=== PATIENT | male | born 1960 | race Caucasian/White ===

== ENCOUNTER 2019-12-27 09:42 | Emergency (ER) | payer SELFPAY ==
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
--- NOTE | 2019-12-27 11:01 | PC.NURSE ---
REPORT RECIEVED FROM [facility].
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
[2019-12-27 12:21] VITALS: O2SAT 98; BMI 30.2
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
[2019-12-27 12:40] VITALS: BP 152/97; PULSE 85; RESP 18; O2SAT 97
--- NOTE | 2019-12-27 12:44 | PC.NURSE ---
1101 REPORT RECEIVED FROM [facility].
[2019-12-27 12:46] VITALS: BP 154/108; PULSE 86; RESP 16; O2SAT 98
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
== END 2019-12-27 12:42 ==
PROVIDERS: Emergency Provider Emergency Medicine
DX: S63.92XA Sprain of unspecified part of left wrist and hand, initial encounter (principal); S66.912A Strain of unspecified muscle, fascia and tendon at wrist and hand level, left hand, initial encounter; V59.40XA Driver of pick-up truck or van injured in collision with unspecified motor vehicles in traffic accident, initial encounter
CPT/HCPCS: 12345; 73130; 99281; 99282

== ENCOUNTER 2019-12-29 15:34 | Emergency (ER) | payer SELFPAY ==
[2019-12-29 15:42] VITALS: BP 152/91; PULSE 95; RESP 18; TEMP 37; O2SAT 97; BMI 31.0
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
== END 2019-12-29 22:19 | disposition home or self-care (01) ==
PROVIDERS: Emergency Provider Nurse Practitioner Family
DX: M25.512 Pain in left shoulder (principal); M25.571 Pain in right ankle and joints of right foot; M25.562 Pain in left knee; M25.561 Pain in right knee; V59.40XA Driver of pick-up truck or van injured in collision with unspecified motor vehicles in traffic accident, initial encounter
CPT/HCPCS: 12345; 73030; 73562; 73610; 99281; 99283

== ENCOUNTER 2020-09-19 10:37 | Emergency (ER) | payer SELFPAY ==
[2020-09-19 10:45] VITALS: BP 150/78; PULSE 92; RESP 16; TEMP 36.5; O2SAT 97; BMI 30.2
--- NOTE | 2020-09-19 10:53 | XR_ITS ---
WS: [id number] 3 views of the left fifth finger, 09/19/2020 Clinical Data: Injury Comparison: Left hand, 12/27/2019 Findings: There is an undisplaced fracture of the distal phalanx involving the ungual tuft of the left fifth fi nger. No other fractures are seen. 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 Soft tissue swelling of the distal phalanx is seen. XR/XR finger LT min 2V [id number] Impression: Undisplaced fracture of the distal phalanx of the left fifth finger.
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
[2020-09-19] MEDS: HYDROcodone-acetaminophen 5-325 mg Tablet 1 TAB PO (11:30)
[2020-09-19] MEDS: clindamycin 600 MG/50 ML PREMIX 100 MG IV (11:32)
[2020-09-19 11:35] LABS: Basophils # 0.1 10^3/uL (0.0-0.1); Basophils % 0.8 %; Eosinophils # 0.2 10^3/uL (0.0-0.8); Hematocrit 45.3 % (42.0-52.0); Hemoglobin 15.1 g/dL (11.7-16.6); Lymphocytes # 1.8 10^3/uL (0.8-4.8); Lymphocytes % 22.6 %; Mean Corpuscular HGB Conc 33.3 g/dL (30.0-36.0); Mean Corpuscular Volume 89.9 fL (80-94); Mean Platelet Volume 9.7 fL (7.4-10.4); Monocytes # 0.5 10^3/uL (0.2-0.9); Monocytes % 6.9 %; Neutrophils # 5.22 10^3/uL (1.8-7.7); Neutrophils % 66.3 %; Nucleated Red Blood Cells % 0 %; Platelet Count 246 10^3/cmm (130-400); Red Blood Count 5.04 10^6/uL (4.1-5.3); Red Cell Distribution Width 13.9 % (12.1-15.1); White Blood Count 7.9 10^3/uL (4.0-10.0)
[2020-09-19 11:58] LABS: Alanine Aminotransferase 33 U/L (0-41); Albumin Level 4.1 g/dL (3.5-5.2); Alkaline Phosphatase 102 IU/L (40-130); Anion Gap 14.2 (5-19); Aspartate Amino Transferase 21 U/L (0-40); Blood Urea Nitrogen 25 mg/dL (8-23); Calcium 8.8 mg/dL (8.5-10.5); Carbon Dioxide 25 mmol/L (22-29); Chloride 102 mmol/L (98-107); Globulin 3.2 g/dL (1.3-4.6); Glomerular Filtration Rate 61.8 mL/min (90-130); Glucose 116 mg/dL (65-115); Osmolality Calculated 289 mOsm/kg (285-295); Potassium 4.2 mmol/L (3.5-5.1); Sodium 137 mmol/L (136-145); Total Bilirubin 0.3 mg/dL (0.15-1.2); Total Protein 7.3 g/dL (6.6-8.7)
== END 2020-09-19 12:20 | disposition home or self-care (01) ==
PROVIDERS: Emergency Provider Emergency Medicine
DX: S62.667A Nondisplaced fracture of distal phalanx of left little finger, initial encounter for closed fracture (principal); S61.257A Open bite of left little finger without damage to nail, initial encounter; Y04.1XXA Assault by human bite, initial encounter
CPT/HCPCS: 73140; 80053; 85025; 96365; 99283; J3490

== ENCOUNTER 2021-02-05 15:08 | Emergency (ER) | payer SELFPAY ==
[2021-02-05 15:46] VITALS: BP 133/83; PULSE 98; RESP 22; TEMP 37.4; O2SAT 92
--- NOTE | 2021-02-05 18:15 | XRR_ITS ---
PROCEDURE INFORMATION: Exam: XR Chest Exam date and time: 02/05/2021 6:15 PM Age: 61 years old Clinical indication: Cough and shortness of breath; Additional info: SOB TECHNIQUE: Imaging protocol: XR of the chest. Views: 1 view. COMPARISON: No relevant prior studies available. FINDINGS: Lungs: Mild elevation of the left hemidiaphragm. Interstitial and alveolar opacities in the periphery of both lungs, worse on the left. Pleural spaces: No pleural effusion. No pneumothorax. Heart/Mediastinum: The cardiac silhouette is mildly enlarged. Mediastinal contours are unremarkable. Vasculature: Vascular calcifications in the aorta. Bones/joints: Unremarkable for age. XR/XR chest 1V portable [id number] IMPRESSION: 1. Interstitial and alveolar opacities in the periphery of both lungs, worse on the left. Findings are suspicious for pneumonia, including atypical and viral organisms. Recommend followup chest x-ray to ensure resolution. 2. Incidental/nonacute findings are listed in the report.
[2021-02-05 20:18] VITALS: O2SAT 93
[2021-02-05 20:35] LABS: Basophils % 0.2 %; Eosinophils # 0.1 10^3/uL (0.0-0.8); Eosinophils % 0.8 %; Hematocrit 43.1 % (42.0-52.0); Hemoglobin 14.6 g/dL (11.7-16.6); Lymphocytes # 1.1 10^3/uL (0.8-4.8); Lymphocytes % 8.9 %; Mean Corpuscular HGB Conc 33.9 g/dL (30.0-36.0); Mean Corpuscular Hemoglobin 29.5 pg (28.0-34.0); Mean Corpuscular Volume 87.1 fl (80-94); Mean Platelet Volume 9.5 fL (7.4-10.4); Neutrophils # 9.66 10^3/uL (1.8-7.7); Neutrophils % 81.2 %; Nucleated Red Blood Cells % 0 %; Platelet Count 382 10^3/cmm (130-400); Red Blood Count 4.95 10^6/uL (4.1-5.3); Red Cell Distribution Width 13.8 % (12.1-15.1); White Blood Count 11.9 10^3/uL (4.0-10.0)
[2021-02-05 20:54] VITALS: BP 135/95; PULSE 108; RESP 18; O2SAT 97
--- NOTE | 2021-02-05 20:54 | ED_ITS ---
HPI - COVID General: Chief Complaint: COVID symptoms Stated Complaint: DISORIENTED, SORES ON CHEST, COUGH, SOB Time Seen by Provider: 02/05/21 16:11 Source: patient Mode of arrival: ambulatory Limitations: no limitations Triage information: Has fever, cough or shortness of breath . No known COVID + exposure last 14 days History of Present Illness: HPI Narrative: 61-year-old male who states he believes he has Covid. He states his along with his roommate has been diagnosed with Covid over the last 2 weeks and he states has been having sym ptoms. States been having cough congestion body aches fevers. He states that today he started to feel rundown. He states he is having dyspnea with exertion. Patient's oxygen level here is 93% on room air. He is in no severe distress. Denies any pain currently. COVID 19 common symptoms: positive fever(s), chills, non-productive cough and body aches; negative headache(s), throat pain, nausea, vomiting or diarrhea COVID 19 other sytmptoms: negative chest pain COVID Results: SARS-CoV-2 Antigen (Rapid) Negative (Negative) 02/05/21 21:20 02/05/21 Review of Systems Const: Reports: fever(s), chills and body aches Eyes: Denies: blurry vision or eye discomfort ENMT: Denies: throat pain or dental pain Card: Denies: chest pain Resp: Reports: non-productive cough GI: Denies: abdominal pain, nausea, vomiting or diarrhea : Denies: dysuria Musc: Denies: neck pain or back pain Skin/Breast: Denies: rash Neuro: Denies: headache(s) Psych: Denies: depression Rey/Lymph: Denies: easy bruising All/Imm: Denies: urticaria PFSH ED PFSH: Social History Smoking and tobacco status: never smoked Physical Exam Const: COMMON NORMALS: no acute distress, patient oriented x3 and healthy appearing HENMT: COMMON NORMALS: normocephalic and atraumatic HEAD & SCALP: normocephalic and atraumatic Eye: COMMON NORMALS: Equal, round and reactive pupils present and EOMs intact bilaterally PUPIL: Yes Equal, round and reactive pupils present Neck/C-Spine: COMMON NORMALS: full ROM and supple Chest: COMMONS NORMALS: normal inspection of the chest and normal palpation of entire chest wall Resp: COMMON NORMALS: normal respiratory effort, No retractions, No use of accessory muscles and clear to auscultation bilaterally AUSCULTATION: clear to auscultation bilaterally Cardio: COMMON NORMALS: regular rate, regular rhythm and No murmurs present (Cardio) RATE: regular rate RHYTHM: regular rhythm GI: COMMON NORMALS: Normal to inspection, nondistended, normoactive bowel sounds present, Soft to palpation, non-tender and no masses PALPATION: Yes Soft to palpation Extremity: COMMON NORMALS: normal to inspection and full ROM Neuro: COMMON NORMALS: patient oriented x3, moves all extremities and no focal motor deficits Psych: COMMON NORMALS: mental status grossly normal, Normal thought process present and cooperative THOUGHT PROCESS: Normal thought process present Skin: COMMON NORMALS: no rashes or lesions noted and no wounds GENERAL SKIN EXAM: no rashes or lesions noted Course Vital Signs: Vital signs: Vital Signs Temperature 99.3 F 02/05/21 15:46 Pulse Rate 87 02/05/21 23:07 Respiratory Rate 18 02/05/21 23:07 Blood Pressure 135/87 02/05/21 23:07 Pulse Oximetry 92 02/05/21 23:07 MDM - COVID MDM Narrative: Medical decision making narrative: Patient presents here with cough congestion fever likely Covid pneumonia. His rapid here was negative with the parents of his CT and multiple close contacts I believe he likely has Covid. Patient given Decadron will place him on antibiotics as well. He is return if he has any hypoxia. He has no distress here. He stable for discharge. He understands agrees to plan. Lab Data: Labs: Lab Results 02/05/21 02/05/21 02/05/21 Range/Units 20:16 20:16 21:00 WBC 11.9 H (4.0-10.0) 10^3/ uL RBC 4.95 (4.1-5.3) 10^6/u L Hgb 14.6 (11.7-16.6) g/dL Hct 43.1 (42.0-52.0) % MCV 87.1 (80-94) fl MCH 29.5 (28.0-34.0) pg MCHC 33.9 (30.0-36.0) g/dL RDW 13.8 (12.1-15.1) % Plt Count 382 (130-400) 10^3/c mm MPV 9.5 (7.4-10.4) fL Neut % (Auto) 81.2 % Lymph % (Auto) 8.9 % [place] % (Auto) 8.0 % Eos % (Auto) 0.8 % Baso % (Auto) 0.2 % Neut # (Auto) 9.66 H (1.8-7.7) 10^3/u L Lymph # (Auto) 1.1 (0.8-4.8) 10^3/u L [place] # (Auto) 1.0 H (0.2-0.9) 10^3/u L Eos # (Auto) 0.1 (0.0-0.8) 10^3/u L Baso # (Auto) 0.0 (0.0-0.1) 10^3/u L Nucleated RBC % (a uto) 0 % Nucleated RBCs # 0.0 /100WBC D-Dimer (0-0.59) ug/mIFE U Sodium 134 L (136-145) mmol/L Potassium 4.4 (3.5-5.1) mmol/L Chloride 97 L (98-107) mmol/L Carbon Dioxide 25 (22-29) mmol/L Anion Gap 16.4 (5-19) BUN 21 (8-23) mg/dL Creatinine 1.1 (0.7-1.2) mg/dL GFR Calculation 68.1 L (90-130) mL/min Glucose 106 (65-115) mg/dL Calculated Osmolal ity 281 L (285-295) mOsm/k g Lactic Acid 1.6 (0.5-2.2) mmol/L Calcium 9.1 (8.5-10.5) mg/dL Total Bilirubin 0.8 (0.15-1.2) mg/dL AST 29 (0-40) U/L ALT 59 H (0-41) U/L Alkaline Phosphata se 115 (40-130) IU/L C-Reactive Protein 211.8 H (0.0-4.9) mg/L NT-Pro-B Natriuret Pep 439 H (0-125) pg/mL Total Protein 7.9 (6.6-8.7) g/dL Albumin 3.1 L (3.5-5.2) g/dL Globulin 4.8 H (1.3-4.6) g/dL SARS-CoV-2 Ag (Rap id) (Negative) 02/05/21 02/05/21 Range/Units 21:20 21:28 WBC (4.0-10.0) 10^3/ uL RBC (4.1-5.3) 10^6/u L Hgb (11.7-16.6) g/dL Hct (42.0-52.0) % MCV (80-94) fl MCH (28.0-34.0) pg MCHC (30.0-36.0) g/dL RDW (12.1-15.1) % Plt Count (130-400) 10^3/c mm MPV (7.4-10.4) fL Neut % (Auto) % Lymph % (Auto) % [place] % (Auto) % Eos % (Auto) % Baso % (Auto) % Neut # (Auto) (1.8-7.7) 10^3/u L Lymph # (Auto) (0.8-4.8) 10^3/u L [place] # (Auto) (0.2-0.9) 10^3/u L Eos # (Auto) (0.0-0.8) 10^3/u L Baso # (Auto) (0.0-0.1) 10^3/u L Nucleated RBC % (a uto) % Nucleated RBCs # /100WBC D-Dimer 3.89 H (0-0.59) ug/mIFE U Sodium (136-145) mmol/L Potassium (3.5-5.1) mmol/L Chloride (98-107) mmol/L Carbon Dioxide (22-29) mmol/L Anion Gap (5-19) BUN (8-23) mg/dL Creatinine (0.7-1.2) mg/dL GFR Calculation (90-130) mL/min Glucose (65-115) mg/dL Calculated Osmolal ity (285-295) mOsm/k g Lactic Acid (0.5-2.2) mmol/L Calcium (8.5-10.5) mg/dL Total Bilirubin (0.15-1.2) mg/dL AST (0-40) U/L ALT (0-41) U/L Alkaline Phosphata se (40-130) IU/L C-Reactive Protein (0.0-4.9) mg/L NT-Pro-B Natriuret Pep (0-125) pg/mL Total Protein (6.6-8.7) g/dL Albumin (3.5-5.2) g/dL Globulin (1.3-4.6) g/dL SARS-CoV-2 Ag (Rap id) Negative (Negative) Imaging Data: CT Chest: Attestation: I personally reviewed and interpreted this imaging study as follows: Radiologist's impression: [place] [address] [address] [address] Scan Report Signed Patient: Shaun James Unit #: [id number] : 1960 Age/Sex: 61 / M ADM Date: 02/05/21 Loc: ER Room/Bed: Attending Dr: Ordering Provider/Ordering MD: Armand Hawkins MD Date of Service: 02/05/21 Procedure(s): CT angio chest PE protcl [id number] Accession Number(s): [id number] Report Number: [id number] PROCEDURE INFORMATION: Exam: CTA Chest With Contrast Exam date and time: 02/05/2021 10:23 PM Age: 61 years old Clinical indication: Cough and shortness of breath; Patient HX: Cough/sob/elevated ddimer. Exposure to multiple individuals with covid. TECHNIQUE: Imaging protocol: Computed tomographic angiography of the chest with contrast. 3D rendering (Not supervised by radiologist): MIP and/or 3D reconstructed images were created by the technologist. Radiation optimization: All CT scans at this facility use at least one of these dose optimization techniques: automated exposure control; mA and/or kV adjustment per patient size (includes targeted exams where dose is matched to clinical indication); or iterative reconstruction. Contrast material: OMNI 350; Contrast volume: 76 ml; Contrast route: INTRAVENOUS (IV); COMPARISON: CR (CHEST, ) 02/05/2021 7:11 PM RADIATION DOSE METRICS: Total DLP (mGy-cm): 602.92 FINDINGS: Pulmonary arteries: No filling defects in the pulmonary arteries to suggest pulmonary embolism. Aorta: No evidence for aortic aneurysm or aortic dissection. Lungs: Tracheobronchial structures are patent. Multiple areas of ground-glass opacification and crazy paving in both lungs in a predominantly peripheral pattern. Findings are commonly seen with COVID-19 pneumonia. No pulmonary parenchymal nodules or masses. Pleural spaces: No pneumothorax. No pleural effusion. Heart: No cardiomegaly. No pericardial effusion. Mediastinal space: The esophagus is unremarkable. No mediastinal hematoma. No pneumomediastinum. Lymph nodes: No lymphadenopathy. Liver: The visualized liver is unremarkable. Gallbladder and bile ducts: The gallbladder is unremarkable. No dilatation of the visualized bile ducts. Pancreas: The visualized pancreas is unremarkable. No pancreatic ductal dilatation. Spleen: The spleen is unremarkable. Multiple splenules in the left upper quadrant. Adrenal glands: The right and left adrenal glands are unremarkable. Kidneys and ureters: The visualized right and left kidneys are unremarkable. Bones/joints: Mild degenerative changes in the visualized spine. Bone islands in the left humeral head and scapula. Mild degenerative changes at the shoulders bilaterally. Soft tissues: No acute abnormality in the extrathoracic soft tissues. CT/CT angio chest PE protcl [id number] IMPRESSION: 1. Multiple areas of ground-glass opacification and crazy paving in both lungs in a predominantly peripheral pattern. Findings are commonly seen with COVID-19 pneumonia. Per report, the patient has prior exposure to COVID-19. Recommend followup chest imaging to insure resolution of these findings. 2. No evidence for pulmonary embolism. 3. Incidental/nonacute findings are listed in the report. Radiation Dose CTDIVOL = (mGy): DLP = 602.92 (mGy-cm) Dictated By: Crystal Blanco MD Signed By: Crystal Blanco MD Signed Date/Time: 02/05/212301 DD/ 99 COVID Results: SARS-CoV-2 Antigen (Rapid) Negative (Negative) 02/05/21 21:20 02/05/21 Discharge Plan Discharge Patient Disposition: Home Clinical Impression: Suspected severe acute respiratory syndrome coronavirus 2 (SARS-CoV-2) infection Condition: Stable Prescriptions: New albuterol sulfate 90 mcg/actuation HFA aerosol inhaler 2 inh INHALATION Q6H PRN (Reason: shortness of breath or wheezing) Qty: 8 RF: 0 doxycycline hyclate 100 mg tablet 100 mg PO BID 7 Days Qty: 14 RF: 0 No Action sulfamethoxazole-trimethoprim 800-160 mg tablet 1 tab PO Q12H 10 Days Qty: 20 RF: 0 mupirocin 2 % ointment 1 applic TOPICAL BID 7 Days Qty: 22 RF: 0 hydrocodone-acetaminophen 5-325 mg tablet 1 tab PO Q6H PRN (Reason: pain) Qty: 10 RF: 0 cyclobenzaprine 10 mg tablet 10 mg PO TID PRN (Reason: muscle spasm) Qty: 10 RF: 0 ibuprofen 200 mg Tablet 400 - 600 mg PO QAM PRN (Reason: Pain) RF: 0 propranolol 20 mg Tablet 20 mg PO DAILY RF: 0 calcium carb-mag ox-zinc sulf 333-133-5 mg Tablet 1 tab PO DAILY RF: 0 Augmentin 875-125 mg tablet 1 tab PO Q12H Qty: 20 RF: 0 diclofenac sodium 75 mg tablet,delayed release (DR/EC) 75 mg PO BID PRN (Reason: pain) Qty: 20 RF: 0 Discharge Orders: Discharge ED (Routine); Ordered 02/05/21 Ordered By: Armand Hawkins Discharge Diet: Advance as tolerated Discharge Activity: Resume usual activity Patient Instructions: Viral Syndrome (ED) Coding Level of Care Code ED Livestock Producer for Jeanne Fwcharsi Exam Comprehensive
[2021-02-05 21:04] LABS: Alanine Aminotransferase 59 U/L (0-41); Albumin Level 3.1 g/dL (3.5-5.2); Alkaline Phosphatase 115 IU/L (40-130); Anion Gap 16.4 (5-19); Aspartate Amino Transferase 29 U/L (0-40); Blood Urea Nitrogen 21 mg/dL (8-23); C Reactive Protein 211.8 mg/L (0.0-4.9); Calcium 9.1 mg/dL (8.5-10.5); Carbon Dioxide 25 mmol/L (22-29); Chloride 97 mmol/L (98-107); Creatinine Clr Calc Pharmacy 78.1466; Globulin 4.8 g/dL (1.3-4.6); Glomerular Filtration Rate 68.1 mL/min (90-130); Glucose 106 mg/dL (65-115); NT Pro B Type Natriuretic Pept 439 pg/mL (0-125); Osmolality Calculated 281 mOsm/kg (285-295); Potassium 4.4 mmol/L (3.5-5.1); Sodium 134 mmol/L (136-145); Total Bilirubin 0.8 mg/dL (0.15-1.2); Total Protein 7.9 g/dL (6.6-8.7)
[2021-02-05] MEDS: acetaminophen 325 mg Tablet 650 MG PO (21:11)
[2021-02-05] MEDS: dexamethasone 10 mg/mL INJ IVP (21:11)
[2021-02-05 21:32] LABS: Lactic Sepsis W/Reflex 1.6 mmol/L (0.5-2.2)
[2021-02-05 21:45] LABS: SARS Covid-2 Antigen Negative (Negative)
[2021-02-05 22:06] LABS: D Dimer 3.89 ug/mIFEU (0-0.59)
--- NOTE | 2021-02-05 22:23 | CTR_ITS ---
PROCEDURE INFORMATION: Exam: CTA Chest With Contrast Exam date and time: 02/05/2021 10:23 PM Age: 61 years old Clinical indication: Cough and shortness of breath; Patient HX: Cough/sob/elevated ddimer. Exposure to multiple individuals with covid. TECHNIQUE: Imaging protocol: Computed tomographic angiography of the chest with contrast. 3D rendering (Not supervised by radiologist): MIP and/or 3D reconstructed images were created by the technologist. Radiation optimization: All CT scans at this facility use at least one of these dose optimization techniques: automated exposure control; mA and/or kV adjustment per patient size (includes targeted exams where dose is matched to clinical indication); or iterative reconstruction. Contrast material: OMNI 350; Contrast volume: 76 ml; Contrast route: INTRAVENOUS (IV); COMPARISON: CR (CHEST, ) 02/05/2021 7:11 PM RADIATION DOSE METRICS: Total DLP (mGy-cm): 602.92 FINDINGS: Pulmonary arteries: No filling defects in the pulmonary arteries to suggest pulmonary embolism. Aorta: No evidence for aortic aneurysm or aortic dissection. Lungs: Tracheobronchial structures are patent. Multiple areas of ground-glass opacification and crazy paving in both lungs in a predominantly peripheral pattern. Findings are commonly seen with COVID-19 pneumonia. No pulmonary parenchymal nodules or masses. Pleural spaces: No pneumothorax. No pleural effusion. Heart: No cardiomegaly. No pericardial effusion. Mediastinal space: The esophagus is unremarkable. No mediastinal hematoma. No pneumomediastinum. Lymph nodes: No lymphadenopathy. Liver: The visualized liver is unremarkable. Gallbladder and bile ducts: The gallbladder is unremarkable. No dilatation of the visualized bile ducts. Pancreas: The visualized pancreas is unremarkable. No pancreatic ductal dilatation. Spleen: The spleen is unremarkable. Multiple splenules in the left upper quadrant. Adrenal glands: The right and left adrenal glands are unremarkable. Kidneys and ureters: The visualized right and left kidneys are unremarkable. Bones/joints: Mild degenerative changes in the visualized spine. Bone islands in the left humeral head and scapula. Mild degenerative changes at the shoulders bilaterally. Soft tissues: No acute abnormality in the extrathoracic soft tissues. CT/CT angio chest PE protcl [id number] IMPRESSION: 1. Multiple areas of ground-glass opacification and crazy paving in both lungs in a predominantly peripheral pattern. Findings are commonly seen with COVID-19 pneumonia. Per report, the patient has prior exposure to COVID-19. Recommend followup chest imaging to insure resolution of these findings. 2. No evidence for pulmonary embolism. 3. Incidental/nonacute findings are listed in the report. Radiation Dose CTDIVOL = (mGy): DLP = 602.92 (mGy-cm)
[2021-02-05] MEDS: iohexol 350 mg/mL 100 mL Btl IV (22:39)
[2021-02-05 23:07] VITALS: BP 135/87; PULSE 87; RESP 18; O2SAT 92
[2021-02-05 23:37] VITALS: BP 135/84; PULSE 78; RESP 18; O2SAT 94
== END 2021-02-05 23:39 | disposition home or self-care (01) ==
PROVIDERS: Emergency Provider Emergency Medicine
DX: Z20.822 Contact with and (suspected) exposure to COVID-19 (principal)
CPT/HCPCS: 36415; 71045; 71275; 80053; 83605; 83880; 85025; 85378; 86140; 87040; 87426; 96374; 99284; J1100; Q9967

== ENCOUNTER 2022-11-28 19:47 | Emergency (ER) | payer MEDICAID, SELFPAY ==
[2022-11-28] VITALS (7 sets, daily range): BP systolic 136–163; BP diastolic 77–98; PULSE 93–107; RESP 14–18; TEMP 36.7; O2SAT 95–99
--- NOTE | 2022-11-28 21:49 | W.ED.EXTPRO ---
HPI - Extremity Problem General: Chief complaint: Extremity Injury, Lower Stated complaint: swelling in right leg / high blood pressure Time Seen by Provider: 11/28/22 21:23 History of Present Illness: 62-year-old male presents emergency room with right leg pain and swelling within the past few hours. Patient further reveals that he bumped his prater against a board. He now presents emergency room with severe right leg pain and swelling. He describes the pain as tightness with severity of 10 out of 10. Denies any numbness or tingling. No loss of sensation. No recent fever or chills. Denies any shortness of breath cough, coughing up blood or vomiting blood. Associated symptoms: Deny chest pain or rash Review of Systems General: Reports: 10 or more systems reviewed and unremarkable except in HPI and below Eyes: Denies: change in vision, blurry vision, eye discomfort or eye discharge Card: Reports: swelling of feet/ankles; Denies: chest pain, palpitations, irregular heart rhythm, edema, lightheadedness, syncope, orthopnea, leg pain with exertion or acrocyanosis Resp: Denies: dyspnea, wheezing, stridor or change in phlegm color Musc: Reports: extremity pain, extremity swelling and joint swelling; Denies: deformity Skin/Breast: Reports: skin tenderness and skin swelling; Denies: rash, pruritus, erythema, photosensitivity or skin pain [facility] ED PFSH: Social History Smoking and tobacco status: never smoked Physical Exam Const: COMMON NORMALS: no acute distress, patient oriented x3, alert and well nourished (Patient in pain but no acute distress) Neck/C-Spine: COMMON NORMALS: no JVD Lymph: LYMPHATIC: no lymphadenopathy noted Chest: COMMONS NORMALS: normal inspection of the chest, normal palpation of entire chest wall, normal inspection of the breasts and normal palpation of the breasts Breast/axilla inspection: Yes normal inspection of the breasts BREAST/AXILLA PALPATION: Yes normal palpation of the breasts Resp: COMMON NORMALS: normal respiratory effort, No retractions, No use of accessory muscles and clear to auscultation bilaterally AUSCULTATION: clear to auscultation bilaterally Cardio: COMMON NORMALS: no JVD, regular rate, S1 normal heart sound present and S2 normal heart sound present RATE: regular rate HEART SOUNDS: S1 normal heart sound present and S2 normal heart sound present Extremity: RIGHT LOWER EXTREMITY: Yes lower leg Right lower leg: Yes inspection, Yes palpation (Diffuse tenderness upon palpation mostly anteriorly. No palpable cords) and Yes neurovascular exam (Intact) Neuro: COMMON NORMALS: patient oriented x3 SENSORIUM/ORIENTATION: Yes alert Skin: TRAUMA: no lacerations or abrasions, no abrasions, no lacerations and no punctures noted Course ED course: Patient monitored here for few hours. Patient had an x-ray and ultrasound. X-ray reviewed and discussed with patient. Ultrasound pending. We will transfer care to Dr. Neal for further evaluation and treatment. Vital Signs: Vital signs: Vital Signs Temperature 98.1 F 11/28/22 19:51 Pulse Rate 100 11/28/22 22:05 Respiratory Rate 18 11/28/22 22:17 Blood Pressure 152/89 11/28/22 22:05 Pulse Oximetry 98 11/28/22 22:17 Oxygen Delivery Me thod Room Air 11/28/22 22:05 MDM - Extremity (Nontraumatic) Medical Decision Making I reviewed the x-ray and discussed the ultrasound and x-ray results with the patient. Differential Diagnosis Likely superficial thrombophlebitis, deep venous thrombosis of upper extremity (Compartment syndrome, fracture, dislocation), lower extremity edema and deep vein thrombosis of lower extremity Discharge Plan Discharge Condition: Stable Prescriptions: No Action sulfamethoxazole-trimethoprim 800-160 mg tablet 1 tab PO Q12H 10 Days Qty: 20 0RF mupirocin 2 % ointment 1 applic TOPICAL BID 7 Days Qty: 22 0RF albuterol sulfate 90 mcg/actuation HFA aerosol inhaler 2 inh INHALATION Q6H PRN (Reason: shortness of breath or wheezing) Qty: 8 0RF hydrocodone-acetaminophen 5-325 mg tablet 1 tab PO Q6H PRN (Reason: pain) Qty: 10 0RF cyclobenzaprine 10 mg tablet 10 mg PO TID PRN (Reason: muscle spasm) Qty: 10 0RF ibuprofen 200 mg Tablet 400 - 600 mg PO QAM PRN (Reason: Pain) propranolol 20 mg Tablet 20 mg PO DAILY Rx Instructions: PT STATES SOMETIMES HE MISSES DOSES calcium carb-mag ox-zinc sulf 333-133-5 mg Tablet 1 tab PO DAILY Augmentin 875-125 mg tablet 1 tab PO Q12H Qty: 20 0RF diclofenac sodium 75 mg tablet,delayed release (DR/EC) 75 mg PO BID PRN (Reason: pain) Qty: 20 0RF Coding Level of Care Code ED Speech And Language Assistant for Jeanne Nagy
--- NOTE | 2022-11-28 22:08 | USR_ITS ---
PROCEDURE INFORMATION: Exam: US Duplex Right Lower Extremity Arteries Or Arterial Bypass Grafts Exam date and time: 11/28/2022 10:19 PM Age: 62 years old Clinical indication: Pain; Leg, lower; Right TECHNIQUE: Imaging protocol: Right Real-time duplex scan of the arteries or arterial bypass grafts of the right lower extremity with 2-D tejeda scale, color Doppler flow and spectral waveform analysis. Images documented and saved. COMPARISON: CR XR knee RT 3V* [id number] 12/29/2019 5:38 PM FINDINGS: Right common femoral artery: No occlusion or significant stenosis. Normal waveform. No pseudoaneurysm in the inguinal region. Right superficial femoral artery: No occlusion or significant stenosis. Normal waveform. Right popliteal artery: No occlusion or significant stenosis. Normal waveform. Right calf/foot arteries: No occlusion or significant stenosis in the visualized arteries. Normal waveforms. Dorsalis pedis artery is patent. Lymph nodes: Incidentally visualized 5 mm short axis lymph node right inguinal region with fatty hilum, benign. Soft tissues: No hematoma or [place]. US/[place] [id number] IMPRESSION: No stenosis or occlusion.
--- NOTE | 2022-11-28 22:08 | XRR_ITS ---
PROCEDURE INFORMATION: Exam: XR Right Tibia and Fibula Exam date and time: 11/28/2022 10:45 PM Age: 62 years old Clinical indication: Injury or trauma; Fall; Blunt trauma; Lower leg; Right; Patient HX: HX R ankle arthritis; Additional info: Pain post injury TECHNIQUE: Imaging protocol: Radiologic exam of the right tibia and fibula. Views: 2 views. COMPARISON: CR XR ankle RT min 3V* [id number] 12/29/2019 5:38 PM FINDINGS: Bones/joints: No acute displaced fracture. Marked arthritis of the tibiotalar joint with osseous fragments adjacent to the medial malleolus suggesting old trauma are unchanged. Old trauma to the talus dorsally is unchanged. Soft tissues: There is soft tissue swelling present. XR/XR tibia fibula RT 2V [id number] IMPRESSION: Soft tissue swelling right lower extremity. No acute displaced fracture.
[2022-11-28] MEDS: morphine 4 mg/mL SDV 1 mL IVP (22:17)
[2022-11-29 00:10] VITALS: BP 136/80; PULSE 98; RESP 18; O2SAT 98
[2022-11-29] MEDS: ketorolac 30 mg/mL INJ 15 MG IVP (00:12)
[2022-11-29] MEDS: dexamethasone 4 mg/mL INJ 8 MG IVP (00:15)
[2022-11-29] MEDS: doxycycline 100 mg Tablet PO (00:18)
[2022-11-29 00:20] VITALS: RESP 18; O2SAT 97
[2022-11-29] MEDS: morphine 4 mg/mL SDV 1 mL IVP (00:20)
[2022-11-29 00:34] VITALS: BP 132/76; PULSE 97; RESP 18; O2SAT 96
--- NOTE | 2022-12-18 14:48 | DCPLANNER ---
late entry - patient called due to no primary care physician - no answer at this time.
== END 2022-11-29 00:36 | disposition home or self-care (01) ==
PROVIDERS: Emergency Provider Emergency Medicine
DX: M79.89 Other specified soft tissue disorders (principal); M79.604 Pain in right leg
CPT/HCPCS: 73590; 93926; 96374; 96375; 96376; 99284; J1100; J1885; J2270

== ENCOUNTER 2022-11-29 21:38 | Inpatient (IN) | payer MEDICAID, SELFPAY ==
[2022-11-29 21:44] VITALS: BP 113/78; PULSE 99; RESP 18; TEMP 36.8; O2SAT 98
[2022-11-29 22:27] LABS: Basophils % 0.2 %; Eosinophils # 0.1 10^3/uL (0.0-0.8); Eosinophils % 0.4 %; Hematocrit 37.2 % (42.0-52.0); Hemoglobin 12.6 g/dL (11.7-16.6); Lymphocytes # 1.2 10^3/uL (0.8-4.8); Lymphocytes % 7.3 %; Mean Corpuscular HGB Conc 33.9 g/dL (30.0-36.0); Mean Corpuscular Hemoglobin 31.4 pg (28.0-34.0); Mean Corpuscular Volume 92.8 fl (80-94); Monocytes % 6.2 %; Neutrophils # 14.14 10^3/uL (1.8-7.7); Neutrophils % 84.3 %; Nucleated Red Blood Cells % 0 %; Platelet Count 148 10^3/cmm (130-400); Red Blood Count 4.01 10^6/uL (4.1-5.3); Red Cell Distribution Width 14.4 % (12.1-15.1); White Blood Count 16.7 10^3/uL (4.0-10.0)
[2022-11-29] MEDS: piperacillin-tazobactam 4.5 GM in sodium chloride 0.9% (plus) 50 ML IV (22:35)
[2022-11-29] MEDS: HYDROmorphone 1 mg/mL INJ 1 mL IVP (22:36)
[2022-11-29] MEDS: ondansetron 2 mg/ML SDV 2 mL 4 MG IVP (22:36)
[2022-11-29 22:44] LABS: Alanine Aminotransferase 21 U/L (0-41); Albumin Level 3.8 g/dL (3.5-5.2); Alkaline Phosphatase 70 U/L (40-130); Anion Gap 13.2 (5-19); Aspartate Amino Transferase 18 U/L (0-40); Blood Urea Nitrogen 30 mg/dL (8-23); C Reactive Protein 147.6 mg/L (0.0-4.9); Calcium 8.8 mg/dL (8.5-10.5); Carbon Dioxide 23 mmol/L (22-29); Chloride 101 mmol/L (98-107); Globulin 2.4 g/dL (1.3-4.6); Glucose 140 mg/dL (65-115); Magnesium 1.8 mg/dL (1.7-2.3); Osmolality Calculated 286 mOsm/kg (285-295); Potassium 3.2 mmol/L (3.5-5.1); Sodium 134 mmol/L (136-145); Total Bilirubin 0.6 mg/dL (0.15-1.2); Total Protein 6.2 g/dL (6.6-8.7)
[2022-11-29] MEDS: vancomycin 1,250 MG/250 ML PIGGYBACK 250 MG IV (22:45)
[2022-11-29 22:52] LABS: Erythrocyte Sedimentation Rate 7 mm/hr (0-10)
[2022-11-29 23:55] LABS: Lactic Sepsis W/Reflex 1.7 mmol/L (0.5-2.2)
[2022-11-30] VITALS (14 sets, daily range): BP systolic 113–172; BP diastolic 77–112; PULSE 86–101; RESP 15–18; TEMP 36.6–37.1; O2SAT 91–98
[2022-11-30] MEDS: sodium chloride 0.9% 1,000 ML 75 ML IV ×2 (01:32→14:21)
[2022-11-30] MEDS: enoxaparin 40 mg/0.4 mL Syringe SUBCUT (01:32)
--- NOTE | 2022-11-30 01:45 | PM.HP ---
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 As per the patient he reported nail injury to his right heel few days ago after which it started swelling and he found difficulty in walking. He visited ER last night for similar complaints and was Prescribed oral antibiotics. He had no relief and he came to ER today with complaint of increased swelling pain and difficulty walking. He denies any fever chest pain shortness of breath abdominal pain urinary or bowel complaints. He has a history of MRSA on the right leg few months ago which was treated as an outpatient. Review of Systems Narrative: 10 or more systems reviewed and unremarkable except in HPI Medications/Allergies Home Medications Medication Instructions Recorded Confirmed Last Taken Type calcium carbonate 333 mg-magnesium 1 tab PO DAILY 12/27/19 01/29/20 Unknown History oxide 133 mg-zinc sulf 5 mg tablet cyclobenzaprine 10 mg tablet 10 mg PO TID PRN muscle spasm #10 12/27/19 01/29/20 Unknown Rx tabs hydrocodone 5 mg-acetaminophen 325 1 tab PO Q6H PRN pain #10 tabs 12/27/19 01/29/20 Unknown Rx mg tablet ibuprofen 200 mg tablet 400 - 600 mg PO QAM PRN Pain 12/27/19 01/29/20 12/27/19 History propranolol 20 mg tablet 20 mg PO DAILY 12/27/19 01/29/20 12/27/19 History mupirocin 2 % topical ointment 1 applic topical BID 7 days #22 01/29/20 01/29/20 Unknown Rx grams sulfamethoxazole 800 1 tab PO Q12H 10 days #20 tabs 01/29/20 01/29/20 Unknown Rx mg-trimethoprim 160 mg tablet amoxicillin 875 mg-potassium 1 tab PO Q12H #20 tabs 09/19/20 Unknown Rx clavulanate 125 mg tablet (Augmentin) diclofenac sodium 75 mg 75 mg PO BID PRN pain #20 tabs 09/19/20 Unknown Rx tablet,delayed release albuterol sulfate 90 mcg/actuation 2 inh inhalation Q6H PRN shortness 02/05/21 Unknown Rx aerosol inhaler of breath or wheezing #8 grams doxycycline hyclate 100 mg capsule 100 mg PO BID 7 days #14 caps 11/28/22 Unknown Rx oxycodone-acetaminophen 5 mg-325 1 tab PO Q8H PRN pain #7 tabs 11/28/22 Unknown Rx mg tablet (Percocet) Allergies Allergy/AdvReac Type Severity Reaction Status Date / Time No Known Allergies Allergy Unverified 11/28/22 19:56 PFSH Acute PFSH: Social History Smoking and tobacco status: never smoked Vitals/I&O/Wt Last Vital Signs Temp 98.3 F 11/30/22 00:24 Pulse 99 11/30/22 00:24 Resp 18 11/30/22 00:24 BP 113/78 11/30/22 00:24 Pulse Ox 98 11/30/22 00:24 O2 Del Method Room Air 11/30/22 00:20 11/29/22 11/29/22 11/30/22 14:59 22:59 06:59 Intake Total 300 / 300 Balance 300 / 300 Weight last 48 hrs Weight 92.533 kg Physical Exam Narrative: Alert awake oriented x3 in mild distress due to pain Chest clear to auscultation bilaterally Cardiovascular exam normal Abdomen soft nontender nondistended normal bowel sounds Extremity right lower extremity swollen erythematous warm and tender. Normal peripheral pulses present. Data 11/29/22 22:12 11/29/22 22:12 Micro: Microbiology 11/29/22 22:30 Blood Culture - Preliminary Blood SPECIMEN COLLECTED 11/29/22 22:12 Blood Culture - Preliminary Blood SPECIMEN COLLECTED Xray Ortho: Radiologist's impression: X-ray tibia and fibula Bones/joints: No acute displaced fracture. Marked arthritis of the tibiotalar joint with osseous fragments adjacent to the medial malleolus suggesting old trauma are unchanged.? Old trauma to the talus dorsally is unchanged. Soft tissues: There is soft tissue swelling present. US Vascular: Radiologist's impression: US duplex right lower extremity arteries no stenosis or occlusion A&P Assessment and plan (1) Cellulitis: (2) Dehydration: (3) Injury of lower leg, right: Plan 62-year-old male with complaint of right lower extremity swelling erythema warmth and pain post right heel nail injury likely secondary to cellulitis Will admit to medical floor Start IV fluids normal saline at 100 mm/h IVs vancomycin 1 g every 12 IV Zosyn 3.375 g every 8 hours Pain control with p.o. Percocet 1 tab every 4 hours as needed Low-sodium diet DVT prophylaxis with subcu heparin He is full code for now Attestations Medical Necessity Statement*: In view of right lower extremity cellulitis with elevated CRP and leukocytosis with left shift patient needs IV antibiotics. Hence he needs continued hospitalization more than 2 midnights. Time Spent in Patient Care: 30 minutes Coding Level of Care Code 51251 Diagnoses Cellulitis L03.90 Dehydration E86.0 Injury of lower leg, right S89.91XA Time Spent (min) 30
[2022-11-30 04:29] LABS: Basophils % 0.2 %; Eosinophils # 0.1 10^3/uL (0.0-0.8); Eosinophils % 0.5 %; Hematocrit 37.9 % (42.0-52.0); Hemoglobin 12.4 g/dL (11.7-16.6); Lymphocytes # 1.3 10^3/uL (0.8-4.8); Lymphocytes % 7.5 %; Mean Corpuscular HGB Conc 32.7 g/dL (30.0-36.0); Mean Corpuscular Hemoglobin 31.2 pg (28.0-34.0); Mean Corpuscular Volume 95.2 fl (80-94); Mean Platelet Volume 10.2 fL (7.4-10.4); Monocytes # 1.2 10^3/uL (0.2-0.9); Monocytes % 6.8 %; Neutrophils # 14.28 10^3/uL (1.8-7.7); Neutrophils % 83.4 %; Nucleated Red Blood Cells % 0 %; Platelet Count 142 10^3/cmm (130-400); Red Blood Count 3.98 10^6/uL (4.1-5.3); Red Cell Distribution Width 14.5 % (12.1-15.1); White Blood Count 17.1 10^3/uL (4.0-10.0)
[2022-11-30 04:54] LABS: Alanine Aminotransferase 21 U/L (0-41); Albumin Level 3.5 g/dL (3.5-5.2); Alkaline Phosphatase 66 U/L (40-130); Anion Gap 12.7 (5-19); Aspartate Amino Transferase 16 U/L (0-40); Blood Urea Nitrogen 28 mg/dL (8-23); Calcium 8.5 mg/dL (8.5-10.5); Carbon Dioxide 24 mmol/L (22-29); Chloride 104 mmol/L (98-107); Globulin 2.4 g/dL (1.3-4.6); Glomerular Filtration Rate 47.4 mL/min (90-130); Glucose 116 mg/dL (65-115); Magnesium 1.9 mg/dL (1.7-2.3); Osmolality Calculated 290 mOsm/kg (285-295); Phosphorus 2.8 mg/dL (2.5-4.5); Potassium 3.7 mmol/L (3.5-5.1); Sodium 137 mmol/L (136-145); Total Bilirubin 0.7 mg/dL (0.15-1.2); Total Protein 5.9 g/dL (6.6-8.7)
[2022-11-30] MEDS: piperacillin-tazobactam 3.375 GM in sodium chloride 0.9% (plus) 50 ML IV ×3 (06:31→22:12)
[2022-11-30] MEDS: oxyCODONE-APAP 5-325 mg Tablet 1 TAB PO ×3 (07:02→23:43)
[2022-11-30] MEDS: tetanus-diphtheria tox (adult) 0.5 mL SDV IM (09:07)
[2022-11-30] MEDS: vancomycin 1,000 MG in sodium chloride 0.9% 250 ML 250 MG IV ×2 (11:57→22:57)
[2022-11-30] MEDS: HYDROmorphone 1 mg/mL INJ 1 mL 0.4 MG IVP ×2 (12:01→15:15)
[2022-11-30 12:38] LABS: Add Urine Culture? No; Add Urine Microscopic? YES; Bacteria Urine TRACE /hpf; Bilirubin Urine Neg (Negative); Blood Urine 2+ (Negative); Glucose Urine UA Norm (Normal); Ketones Urine Negative (Negative); Leukocyte Esterase Urine Negative (Negative); Nitrate Urine Negative (Negative); Protein Urine Neg (Negative); RBC Urine 0-4 /hpf (0-2); Specific Gravity, Urine 1.025 (1.005-1.030); Squamous Epithelial Cell Urine 0-4 /hpf (0-5); Urine Appearance Clear (CLEAR); Urine Color Yellow (Yellow); Urobilinogen Urine Norm (Negative); WBC Urine 0-4 /hpf (0-5); pH Urine 5 (5-7)
--- NOTE | 2022-11-30 15:23 | ED_ITS ---
HPI - Extremity Problem General: Chief complaint: Extremity Problem,Nontraumatic Stated complaint: right leg pain Time Seen by Provider: 11/29/22 21:49 Source: patient and family History of Present Illness: 62 year old male who presents for the second time in 24 hours. He has increased right leg pain, redness, warmth, and swelling. He was evaluated last night for this. Ultrasound at that point was negative for DVT. He was treated for Cellulitis. He presents with transient improvement of his symptoms, but then worsening symptoms this evening. He was still in pain despite pain medication at home. No fever. At this point, he remembers a critical historical item. 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 He did not relate this last night, as he denied any puncture injury prior, stating only tht he hit his prater. He states that the nail did go through his shoe. MD Complaint: extremity pain and extremity swelling Onset (ago): day(s) Pain Consistency: constant Location: right and lower extremity Quality: stabbing and aching Radiation: none Relieving factors: cold therapy and immobilization Exacerbating factors: range of motion and weight bearing Associated symptoms: Reports myalgias and rash; Deny chest pain, fever(s) or short of breath Review of Systems Const: Denies: fever(s) Card: Denies: chest pain Resp: Denies: dyspnea GI: Reports: nausea; Denies: abdominal pain or vomiting Skin/Breast: Reports: rash [facility] PFSH: Social History Smoking and tobacco status: never smoked Physical Exam Const: GENERAL APPEARANCE: cooperative and ill appearing; not frail appearing HENMT: COMMON NORMALS: normocephalic, atraumatic and Normal external nose present HEAD & SCALP: normocephalic and atraumatic FACE & SINUS: normal facial exam and face symmetric NOSE: Normal external nose present Eye: COMMON NORMALS: Equal, round and reactive pupils present and EOMs intact bilaterally PUPIL: Yes Equal, round and reactive pupils present Neck/C-Spine: GENERAL: Yes trachea midline Chest: CHEST: Yes Symmetrical chest wall rise Resp: COMMON NORMALS: normal respiratory effort, No retractions, No use of accessory muscles and clear to auscultation bilaterally AUSCULTATION: clear to auscultation bilaterally Cardio: COMMON NORMALS: regular rate and regular rhythm RATE: regular rate RHYTHM: regular rhythm GI: COMMON NORMALS: Normal to inspection, nondistended, normoactive bowel sounds present Extremity: NARRATIVE EXTREMITY EXAM: RLE redness, warmth, tightness, swelling present. No definite puncture wound is apparent to the foot. no streaking. swelling is significant. pain with plantar/dorsiflexion of ankle but not extreme pain or out of proportion. pulses palpable, cap refill is normal. Neuro: AILYN COMA SCALE: document GCS findings Ailyn coma scale eye opening: Spontaneous Ailyn coma scale verbal response: Orientated [place] coma scale motor response: Obey commands [place] coma scale total score: 15 SENSORY EXAM: Yes extremities (intact) Psych: COMMON NORMALS: speech normal SPEECH: Yes normal speech Skin: COMMON NORMALS: no rashes or lesions noted GENERAL SKIN EXAM: no rashes or lesions noted Course Vital Signs: Vital signs: Vital Signs Temperature 98.1 F 11/30/22 12:00 Pulse Rate 101 H 11/30/22 12:00 Respiratory Rate 18 11/30/22 15:15 Blood Pressure 158/89 11/30/22 12:00 Pulse Oximetry 96 11/30/22 12:01 Oxygen Delivery Me thod Room Air 11/30/22 00:20 MDM - Extremity (Nontraumatic) Medical Decision Making 62 year old male with increased heat, redness, and swelling of his right lower extremity despite antibiotics last night and today. He now relates that he stepped on a nail through his shoe last week, which changes the potential Biome of Cellulitis causes possible. On exam, he still does not have overt signs of compartment syndrome. His capillary refill is normal period he has pulses that are intact. There is no excruciating pain with straightening of the toes or flexion of the toes passively. He will however, require admission and Bea antibiotics. Patient has started on zosyn and vancomycin. Spoke with hospitalists. She agrees to admission. Lab Data 11/30/22 04:15 11/30/22 04:15 Laboratory Results WBC 16.7 10^3/uL (4.0-10.0) H 11/29/22 22:12 RBC 4.01 10^6/uL (4.1-5.3) L 11/29/22 22:12 Hgb 12.6 g/dL (11.7-16.6) 11/29/22 22:12 Hct 37.2 % (42.0-52.0) L 11/29/22 22:12 MCV 92.8 fl (80-94) 11/29/22 22:12 MCH 31.4 pg (28.0-34.0) 11/29/22 22:12 MCHC 33.9 g/dL (30.0-36.0) 11/29/22 22:12 RDW 14.4 % (12.1-15.1) 11/29/22 22:12 Plt Count 148 10^3/cmm (130-400) 11/29/22 22:12 MPV 10.0 fL (7.4-10.4) 11/29/22 22:12 Neut % (Auto) 84.3 % 11/29/22 22:12 Lymph % (Auto) 7.3 % 11/29/22 22:12 [place] % (Auto) 6.2 % 11/29/22 22:12 Eos % (Auto) 0.4 % 11/29/22 22:12 Baso % (Auto) 0.2 % 11/29/22 22:12 Neut # (Auto) 14.14 10^3/uL (1.8-7.7) H 11/29/22 22:12 Lymph # (Auto) 1.2 10^3/uL (0.8-4.8) 11/29/22 22:12 [place] # (Auto) 1.0 10^3/uL (0.2-0.9) H 11/29/22 22:12 Eos # (Auto) 0.1 10^3/uL (0.0-0.8) 11/29/22 22:12 Baso # (Auto) 0.0 10^3/uL (0.0-0.1) 11/29/22 22:12 Nucleated RBC % (auto) 0 % 11/29/22 22:12 Nucleated RBCs # 0.0 /100WBC 11/29/22 22:12 ESR 7 mm/hr (0-10) 11/29/22 22:12 Sodium 134 mmol/L (136-145) L 11/29/22 22:12 Potassium 3.2 mmol/L (3.5-5.1) L 11/29/22 22:12 Chloride 101 mmol/L (98-107) 11/29/22 22:12 Carbon Dioxide 23 mmol/L (22-29) 11/29/22 22:12 Anion Gap 13.2 (5-19) 11/29/22 22:12 BUN 30 mg/dL (8-23) H 11/29/22 22:12 Creatinine 1.7 mg/dL (0.7-1.2) H 11/29/22 22:12 GFR Calculation 41.0 mL/min (90-130) L 11/29/22 22:12 Glucose 140 mg/dL (65-115) H 11/29/22 22:12 Calculated Osmolality 286 mOsm/kg (285-295) 11/29/22 22:12 Lactic Acid 1.7 mmol/L (0.5-2.2) 11/29/22 22:30 Calcium 8.8 mg/dL (8.5-10.5) 11/29/22 22:12 Magnesium 1.8 mg/dL (1.7-2.3) 11/29/22 22:12 Total Bilirubin 0.6 mg/dL (0.15-1.2) 11/29/22 22:12 AST 18 U/L (0-40) 11/29/22 22:12 ALT 21 U/L (0-41) 11/29/22 22:12 Alkaline Phosphatase 70 U/L (40-130) 11/29/22 22:12 C-Reactive Protein 147.6 mg/L (0.0-4.9) H 11/29/22 22:12 Total Protein 6.2 g/dL (6.6-8.7) L 11/29/22 22:12 Albumin 3.8 g/dL (3.5-5.2) 11/29/22 22:12 Globulin 2.4 g/dL (1.3-4.6) 11/29/22 22:12 Discharge Plan Discharge Patient Disposition: Admitted As Inpatient Admit Provider: Luisana Worley Clinical Impression: Cellulitis, Injury of lower leg, right, Puncture wound of foot Condition: Stable Coding Level of Care Code ED Squirrel Man for Jeanne Nagy
[2022-12-01] VITALS (8 sets, daily range): BP systolic 152–180; BP diastolic 88–104; PULSE 93–98; RESP 16–18; TEMP 36.6–37; O2SAT 92–99
[2022-12-01] MEDS: enoxaparin 40 mg/0.4 mL Syringe SUBCUT (00:44)
[2022-12-01] MEDS: oxyCODONE-APAP 5-325 mg Tablet 1 TAB PO ×2 (04:52→22:46)
[2022-12-01 05:00] LABS: Basophils % 0.3 %; Eosinophils # 0.3 10^3/uL (0.0-0.8); Eosinophils % 1.9 %; Hematocrit 38.5 % (42.0-52.0); Hemoglobin 12.2 g/dL (11.7-16.6); Lymphocytes # 1.9 10^3/uL (0.8-4.8); Lymphocytes % 13.1 %; Mean Corpuscular HGB Conc 31.7 g/dL (30.0-36.0); Mean Platelet Volume 10.6 fL (7.4-10.4); Monocytes % 6.9 %; Neutrophils # 10.96 10^3/uL (1.8-7.7); Nucleated Red Blood Cells % 0 %; Platelet Count 148 10^3/cmm (130-400); Red Blood Count 3.93 10^6/uL (4.1-5.3); Red Cell Distribution Width 14.6 % (12.1-15.1); White Blood Count 14.2 10^3/uL (4.0-10.0)
[2022-12-01 05:28] LABS: Albumin Level 2.7 g/dL (3.5-5.2); Blood Urea Nitrogen 23 mg/dL (8-23); Calcium 8.4 mg/dL (8.5-10.5); Carbon Dioxide 20 mmol/L (22-29); Chloride 106 mmol/L (98-107); Glomerular Filtration Rate 55.9 mL/min (90-130); Glucose 89 mg/dL (65-115); Phosphorus 2.4 mg/dL (2.5-4.5); Sodium 136 mmol/L (136-145)
[2022-12-01 05:33] LABS: Anion Gap 13.9 (5-19); Potassium 3.9 mmol/L (3.5-5.1)
[2022-12-01] MEDS: amlodipine 5 mg Tablet PO (05:44)
[2022-12-01] MEDS: sodium chloride 0.9% 1,000 ML 75 ML IV ×2 (06:10→20:51)
[2022-12-01] MEDS: piperacillin-tazobactam 3.375 GM in sodium chloride 0.9% (plus) 50 ML IV ×2 (06:10→15:33)
--- NOTE | 2022-12-01 09:26 | CT_ITS ---
WS: [id number] CT RIGHT LOWER EXTREMITY WITH CONTRAST. HISTORY: r/o osteomyelitis Technique: All CT scans at [facility] use at least one of these dose optimization techniques: automated exposure control; mA and/or kV adjustment per patient size (includes targeted exams where dose is matched to clinical indication); or iterative reconstruction. DLP: 909.05 mGy.cm COMPARISON: Radiograph 11/28/2022. Omnipaque 350; 100 mL IV. There is extensive soft tissue edema beginning at the knee and extending circumferentially around the RIGHT lower extremity. No focal collections. There is mild enhancement and fluid along the fascial p lanes of the posterior muscle groups surrounding the gastrocnemius heads. There is no focal well form ed collection with wall enhancement. Advanced degenerative changes at the ankle joint. Joint ankle joint is markedly narrowed with subchon dral cystic changes on both sides of the joint and small loose bodies. These findings appear chronic. There are small osseous fragments along the intraosseous membrane distally. CT/CT lower leg RT w con [id number] IMPRESSION: 1. Extensive diffuse soft tissue edema and cellulitis. 2. No focal mass. 3. No osseous destruction to suggest osteomyelitis radiographically or by CT. 4. Severe, chronic degenerative changes at the ankle joint.
[2022-12-01] MEDS: iohexol 350 mg/mL 500 mL Btl (per mL) IV (11:14)
[2022-12-01] MEDS: HYDROmorphone 1 mg/mL INJ 1 mL 0.4 MG IVP (12:14)
[2022-12-01] MEDS: vancomycin 1,000 MG in sodium chloride 0.9% 250 ML 250 MG IV ×2 (12:15→23:45)
--- NOTE | 2022-12-01 13:56 | USR_ITS ---
PROCEDURE INFORMATION: Exam: US Duplex Right Lower Extremity Veins, Limited Exam date and time: 12/01/2022 4:37 PM Age: 62 years old Clinical indication: Pain; Leg, lower; Right; Additional info: R/O dvt TECHNIQUE: Imaging protocol: Real-time duplex ultrasound of the right extremity with 2-D tejeda scale, color Doppler flow and spectral waveform analysis including responses to compression and other maneuvers (when performed) with image documentation. Limited exam was focused on the right lower extremity veins. COMPARISON: [place] [id number] 11/28/2022 10:19 PM FINDINGS: Right deep veins: Unremarkable. The common femoral, femoral, proximal profunda femoral, popliteal, posterior tibial and peroneal veins are patent without thrombus. Normal Doppler waveforms. Normal compressibility and/or augmentation response. Right superficial veins: Unremarkable. Saphenofemoral junction is patent without thrombus. Soft tissues: Unremarkable. US/[place] [id number] IMPRESSION: No sonographic evidence of deep vein thrombosis.
--- NOTE | 2022-12-01 13:57 | USR_ITS ---
PROCEDURE INFORMATION: Exam: US Duplex Right Lower Extremity Arteries Or Arterial Bypass Grafts Exam date and time: 12/01/2022 4:46 PM Age: 62 years old Clinical indication: Pain; Leg, lower; Right; Additional info: R/O stenosis TECHNIQUE: Imaging protocol: Right Real-time duplex scan of the arteries or arterial bypass grafts of the right lower extremity with 2-D tejeda scale, color Doppler flow and spectral waveform analysis. Images documented and saved. COMPARISON: [place] [id number] 11/28/2022 10:19 PM FINDINGS: Right external iliac artery: No occlusion or significant stenosis. Monophasic waveform. Right common femoral artery: No occlusion or significant stenosis. Monophasic waveform. No pseudoaneurysm in the inguinal region. Right superficial femoral artery: No occlusion or significant stenosis. Monophasic waveform. Right popliteal artery: No occlusion or significant stenosis. Monophasic waveform. Right calf/foot arteries: No occlusion or significant stenosis in the visualized arteries. Monophasic waveform. Dorsalis pedis artery is patent. Soft tissues: No hematoma or collection. US/[place] [id number] IMPRESSION: No hemodynamically significant stenosis or occlusion.
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
--- NOTE | 2022-12-01 18:44 | PC.NURSE ---
PD- Start with Green bag first then yellow and alternate. Dwell q6hr each bag.
--- NOTE | 2022-12-01 18:57 | PM.PN ---
Subjective Subjective: Patient was seen and examined this morning he was complaining of severe right lower extremity pain, There was concern for possible developing compartment syndrome, orthopedic was consulted , currently appears to be progressive cellulitis, will need close monitoring. Medications: Medication Review Details: Generic Name Dose Route Start Last Admin Trade Name Freq PRN Reason Stop Dose Admin Enoxaparin Sodium 40 mg 11/30/22 01:15 12/01/22 00:44 Enoxaparin 40 Mg /0.4 Ml Syringe SUBCUT 40 mg Q24H VICKY Administration Hydromorphone HCl 0.4 mg 11/30/22 08:17 12/01/22 12:14 Hydromorphone 1 Mg/Ml Inj 1 Ml IVP 0.4 mg Q4H PRN Administration PAIN Sodium Chloride 1,000 mls @ 75 ml s/hr 11/30/22 01:15 12/01/22 06:10 Sodium Chloride 0.9% IV 75 mls/hr .[id number] VICKY Administration Vancomycin HCl 1,0 00 mg/ 250 mls @ 250 mls /hr 11/30/22 11:00 12/01/22 13:15 Sodium Chloride IV Infused Q12H VICKY Infusion Protocol Piperacillin Sod/T azobactam 50 mls @ 12.5 mls /hr 11/30/22 07:00 12/01/22 15:33 Sod 3.375 gm/ So dium Chloride IV 12.5 mls/hr Q8H VICKY Administration Protocol Oxycodone/Acetamin ophen 1 tab 11/30/22 01:03 12/01/22 04:52 Oxycodone-Apap 5 -325 Mg Tablet PO 1 tab Q4H PRN Administration SEVERE PAIN Vitals/I&O/Wt Last Vital Signs Temp 98.1 F 12/01/22 15:27 Pulse 98 12/01/22 15:27 Resp 18 12/01/22 15:27 BP 152/88 12/01/22 15:27 Pulse Ox 99 12/01/22 15:27 O2 Del Method Nasal Cannula 12/01/22 15:27 12/01/22 12/01/22 12/01/22 06:59 14:59 22:59 Intake Total 1300 / 3791.25 1260 / 1260 360 / 1620 Output Total 325 / 1625 Balance 975 / 2166.25 1260 / 1260 360 / 1620 Weight last 48 hrs Weight 92.533 kg Physical Exam Const: COMMON NORMALS: patient oriented x3 Resp: COMMON NORMALS: clear to auscultation bilaterally EFFORT & INSPECTION: Yes symmetric chest movement AUSCULTATION: clear to auscultation bilaterally Cardio: COMMON NORMALS: regular rate, regular rhythm, S1 normal heart sound present, S2 normal heart sound present, No gallops present (Cardio), No murmurs present (Cardio), No rub (Cardio) and Peripheral pulses 2+ throughout RATE: regular rate RHYTHM: regular rhythm HEART SOUNDS: S1 normal heart sound present and S2 normal heart sound present PERIPHERAL PULSES: Peripheral pulses 2+ throughout GI: COMMON NORMALS: Normal to inspection, nondistended, normoactive bowel sounds present, Soft to palpation, non-tender, No hepatosplenomegaly present and no masses AUSCULTATION: Yes normoactive bowel sounds PALPATION: Yes Soft to palpation and Yes No hepatosplenomegaly present RECTAL EXAM: Yes deferred Extremity: NARRATIVE EXTREMITY EXAM: Right lower extremity tenderness swelling and redness present, right feet 2+ nonpitting edema. Neuro: COMMON NORMALS: patient oriented x3 Data 12/01/22 04:17 12/01/22 04:17 Micro: Microbiology 11/29/22 22:30 Blood Culture - Preliminary Blood NEGATIVE TO DATE 11/29/22 22:12 Blood Culture - Preliminary Blood NEGATIVE TO DATE A&P Assessment and plan (1) Cellulitis: (2) Dehydration: (3) Injury of lower leg, right: Plan 62-year-old male with complaint of right lower extremity swelling erythema warmth and pain post right heel nail injury likely secondary to cellulitis Right lower extremity CT scan with contrast was done today:Extensive diffuse soft tissue edema and cellulitis, has not shown any features suggestive of necrotizing fasciitis or gas gangrene. Right lower extremity arterial duplex is negative for any stenosis Right lower extremity Doppler vein is negative for DVT Blood culture:NTD On IV fluids IVs vancomycin 1 g every 12 IV Zosyn 3.375 g every 8 hours Pain control with p.o. Percocet 1 tab every 4 hours as needed Low-sodium diet DVT prophylaxis with subcu heparin He is full code for now Attestations Medical Necessity Statement*: Needs to be in hospital for IV antibiotic. Coding Level of Care Code Acute Code for [facility] Diagnoses Cellulitis L03.90 Dehydration E86.0 Injury of lower leg, right S89.91XA
[2022-12-02] VITALS (9 sets, daily range): BP systolic 159–179; BP diastolic 89–99; PULSE 83–98; RESP 16–18; TEMP 36.6–37.5; O2SAT 93–96
[2022-12-02] MEDS: piperacillin-tazobactam 3.375 GM in sodium chloride 0.9% (plus) 50 ML IV ×4 (00:11→22:26)
--- NOTE | 2022-12-02 00:37 | PC.PHAR ---
Vancomycin Trough scheduled for 12/02/22 1000, please hold 1100 dose until drawn. Will continue to follow. Thank you, Corrine Ceja [facility]
[2022-12-02] MEDS: enoxaparin 40 mg/0.4 mL Syringe SUBCUT (01:55)
[2022-12-02 04:59] LABS: Basophils # 0.1 10^3/uL (0.0-0.1); Basophils % 0.5 %; Eosinophils # 0.3 10^3/uL (0.0-0.8); Eosinophils % 2.4 %; Hematocrit 37.8 % (42.0-52.0); Hemoglobin 12.8 g/dL (11.7-16.6); Lymphocytes # 1.9 10^3/uL (0.8-4.8); Lymphocytes % 17.6 %; Mean Corpuscular HGB Conc 33.9 g/dL (30.0-36.0); Mean Corpuscular Hemoglobin 31.8 pg (28.0-34.0); Mean Platelet Volume 10.1 fL (7.4-10.4); Monocytes # 0.8 10^3/uL (0.2-0.9); Monocytes % 7.4 %; Neutrophils % 71.3 %; Nucleated Red Blood Cells % 0 %; Platelet Count 188 10^3/cmm (130-400); Red Blood Count 4.02 10^6/uL (4.1-5.3); Red Cell Distribution Width 14.3 % (12.1-15.1); White Blood Count 10.7 10^3/uL (4.0-10.0)
[2022-12-02 05:12] LABS: Alanine Aminotransferase 24 U/L (0-41); Albumin Level 2.7 g/dL (3.5-5.2); Alkaline Phosphatase 129 U/L (40-130); Aspartate Amino Transferase 22 U/L (0-40); Blood Urea Nitrogen 16 mg/dL (8-23); Calcium 8.5 mg/dL (8.5-10.5); Carbon Dioxide 21 mmol/L (22-29); Chloride 104 mmol/L (98-107); Globulin 3.3 g/dL (1.3-4.6); Glomerular Filtration Rate 61.3 mL/min (90-130); Glucose 89 mg/dL (65-115); Osmolality Calculated 287 mOsm/kg (285-295); Sodium 138 mmol/L (136-145); Total Bilirubin 0.8 mg/dL (0.15-1.2)
[2022-12-02] MEDS: oxyCODONE-APAP 5-325 mg Tablet 1 TAB PO ×3 (05:29→22:29)
[2022-12-02 10:51] LABS: Vancomycin Trough 9.5 ug/mL (10-15)
[2022-12-02] MEDS: vancomycin 1,000 MG in sodium chloride 0.9% 250 ML 250 MG IV (11:02)
[2022-12-02] MEDS: sodium chloride 0.9% 1,000 ML 75 ML IV (11:02)
--- NOTE | 2022-12-02 11:13 | PC.PHAR ---
PHARMACY TO DOSE CONSULT - VANCOMYCIN Originally, the patient was started on vancomycin by the overnight provider who did not request a pharmacist consult. Provider entered dose of 1000mg every 12 hours brought back a trough of 9.5. A recalculation and changes in the patient's renal function came back with 1250mg every 12 hours. This should give a predicted peak of 34.7 and a trough of 17.16. Everything remaining stable, we will draw a follow-up trough prior to the 4th dose. Pharmacy will continue to monitor this patient's renal function and make adjustments as necessary. Please let us know if there is anything else we can do in the care of this patient. Thanks, Majninder Abraham, Pharm.D
--- NOTE | 2022-12-02 14:02 | PM.PN ---
Subjective Subjective: The patient is up in the chair today. He states he still has discomfort particular when attempting to weight-bear. The leg remains swollen, but he is able to actively flex and extend his ankle with no complaints of significant pain into the calf. Medications: Medication Review Details: Generic Name Dose Route Start Last Admin Trade Name Freq PRN Reason Stop Dose Admin Enoxaparin Sodium 40 mg 11/30/22 01:15 12/01/22 00:44 Enoxaparin 40 Mg /0.4 Ml Syringe SUBCUT 40 mg Q24H VICKY Administration Hydromorphone HCl 0.4 mg 11/30/22 08:17 12/01/22 12:14 Hydromorphone 1 Mg/Ml Inj 1 Ml IVP 0.4 mg Q4H PRN Administration PAIN Sodium Chloride 1,000 mls @ 75 ml s/hr 11/30/22 01:15 12/01/22 06:10 Sodium Chloride 0.9% IV 75 mls/hr .[id number] VICKY Administration Vancomycin HCl 1,0 00 mg/ 250 mls @ 250 mls /hr 11/30/22 11:00 12/01/22 13:15 Sodium Chloride IV Infused Q12H VICKY Infusion Protocol Piperacillin Sod/T azobactam 50 mls @ 12.5 mls /hr 11/30/22 07:00 12/01/22 15:33 Sod 3.375 gm/ So dium Chloride IV 12.5 mls/hr Q8H VICKY Administration Protocol Oxycodone/Acetamin ophen 1 tab 11/30/22 01:03 12/01/22 04:52 Oxycodone-Apap 5 -325 Mg Tablet PO 1 tab Q4H PRN Administration SEVERE PAIN Vitals/I&O/Wt Last Vital Signs Temp 98.2 F 12/02/22 11:23 Pulse 98 12/02/22 11:23 Resp 17 12/02/22 11:23 BP 165/93 12/02/22 11:23 Pulse Ox 95 12/02/22 11:23 O2 Del Method Room Air 12/02/22 03:39 12/01/22 12/02/22 12/02/22 22:59 06:59 14:59 Intake Total 1410 / 2670 300 / 2970 1713.333 / 1713.333 Output Total 800 / 800 300 / 1100 800 / 800 Balance 610 / 1870 0 / 1870 913.333 / 913.333 Physical Exam Const: COMMON NORMALS: no acute distress, average body habitus, patient oriented x3 and alert GENERAL APPEARANCE: cooperative and comfortable ORIENTATION/CONSCIOUSNESS: Yes awake HENMT: COMMON NORMALS: normocephalic and atraumatic HEAD & SCALP: normocephalic and atraumatic Eye: GENERAL EYE: appearance normal, both eyes and all related structures Chest: COMMONS NORMALS: normal inspection of the chest Resp: COMMON NORMALS: normal respiratory effort EFFORT & INSPECTION: Yes able to speak in complete sentences and Yes symmetric chest movement Extremity: RIGHT LOWER EXTREMITY: Yes lower leg (No pain with active or passive range of motion of the toes, ankle, or knee) Right lower leg: Yes inspection (Erythema and swelling remain in the calf), Yes palpation (Tender to palpation) and Yes neurovascular exam (Intact distally) Neuro: COMMON NORMALS: patient oriented x3 SENSORIUM/ORIENTATION: Yes alert Psych: COMMON NORMALS: mental status grossly normal APPEARANCE: Yes grossly normal ATTITUDE: Yes calm and Yes engaged ATTENTION/CONCENTRATION: Yes attention grossly intact Skin: COMMON NORMALS: no rashes or lesions noted GENERAL SKIN EXAM: no rashes or lesions noted Data 12/02/22 04:20 12/02/22 04:20 A&P Assessment and plan (1) Contusion of lower leg, right: Today, the patient appears to have improved. He is up in a chair, and still complains of pain with weightbearing. He is able to actively flex and extend his ankle and toes without significant discomfort, however. Plans are for his discharge tomorrow, and he is cautioned to keep the extremity elevated above the level of his heart until more of his swelling resolves. (2) Cellulitis: Attestations Medical Necessity Statement*: Ongoing hospitalist care Coding Level of Care Code Acute Code for [facility] Diagnoses Contusion of lower leg, right S80.11XA Cellulitis L03.90
--- NOTE | 2022-12-02 18:19 | PM.PN ---
Subjective Subjective: Patient was seen and examined this morning, right lower extremity pain has improved, swelling is also improving, has been afebrile blood cultures have been negative. Medications: Medication Review Details: Generic Name Dose Route Start Last Admin Trade Name Freq PRN Reason Stop Dose Admin Enoxaparin Sodium 40 mg 11/30/22 01:15 12/01/22 00:44 Enoxaparin 40 Mg /0.4 Ml Syringe SUBCUT 40 mg Q24H VICKY Administration Hydromorphone HCl 0.4 mg 11/30/22 08:17 12/01/22 12:14 Hydromorphone 1 Mg/Ml Inj 1 Ml IVP 0.4 mg Q4H PRN Administration PAIN Sodium Chloride 1,000 mls @ 75 ml s/hr 11/30/22 01:15 12/01/22 06:10 Sodium Chloride 0.9% IV 75 mls/hr .[id number] VICKY Administration Vancomycin HCl 1,0 00 mg/ 250 mls @ 250 mls /hr 11/30/22 11:00 12/01/22 13:15 Sodium Chloride IV Infused Q12H VICKY Infusion Protocol Piperacillin Sod/T azobactam 50 mls @ 12.5 mls /hr 11/30/22 07:00 12/01/22 15:33 Sod 3.375 gm/ So dium Chloride IV 12.5 mls/hr Q8H VICKY Administration Protocol Oxycodone/Acetamin ophen 1 tab 11/30/22 01:03 12/01/22 04:52 Oxycodone-Apap 5 -325 Mg Tablet PO 1 tab Q4H PRN Administration SEVERE PAIN Vitals/I&O/Wt Last Vital Signs Temp 98.4 F 12/02/22 15:47 Pulse 97 12/02/22 15:47 Resp 17 12/02/22 15:47 BP 179/99 12/02/22 15:47 Pulse Ox 96 12/02/22 15:47 O2 Del Method Room Air 12/02/22 03:39 12/02/22 12/02/22 12/02/22 06:59 14:59 22:59 Intake Total 300 / 2970 1939.583 / 1939.583 50 / 1989.583 Output Total 300 / 1100 800 / 800 300 / 1100 Balance 0 / 1870 1139.583 / 1139.583 -250 / 889.583 Physical Exam Const: COMMON NORMALS: patient oriented x3 Resp: COMMON NORMALS: clear to auscultation bilaterally EFFORT & INSPECTION: Yes symmetric chest movement AUSCULTATION: clear to auscultation bilaterally Cardio: COMMON NORMALS: regular rate, regular rhythm, S1 normal heart sound present, S2 normal heart sound present, No gallops present (Cardio), No murmurs present (Cardio), No rub (Cardio) and Peripheral pulses 2+ throughout RATE: regular rate RHYTHM: regular rhythm HEART SOUNDS: S1 normal heart sound present and S2 normal heart sound present PERIPHERAL PULSES: Peripheral pulses 2+ throughout GI: COMMON NORMALS: Normal to inspection, nondistended, normoactive bowel sounds present, Soft to palpation, non-tender, No hepatosplenomegaly present and no masses AUSCULTATION: Yes normoactive bowel sounds PALPATION: Yes Soft to palpation and Yes No hepatosplenomegaly present RECTAL EXAM: Yes deferred Extremity: NARRATIVE EXTREMITY EXAM: Right lower extremity tenderness swelling and redness present, right feet 2+ nonpitting edema. Neuro: COMMON NORMALS: patient oriented x3 Data 12/02/22 04:20 12/02/22 04:20 A&P Assessment and plan (1) Cellulitis: (2) Dehydration: (3) Injury of lower leg, right: Plan 62-year-old male with complaint of right lower extremity swelling erythema warmth and pain post right heel nail injury likely secondary to cellulitis Right lower extremity CT scan with contrast was done today:Extensive diffuse soft tissue edema and cellulitis, has not shown any features suggestive of necrotizing fasciitis or gas gangrene. Right lower extremity arterial duplex is negative for any stenosis Right lower extremity Doppler vein is negative for DVT Blood culture:NTD On IV fluids IVs vancomycin 1 g every 12 IV Zosyn 3.375 g every 8 hours Pain control with p.o. Percocet 1 tab every 4 hours as needed. We will plan to discharge him on p.o. antibiotics. Low-sodium diet DVT prophylaxis with subcu heparin He is full code for now Attestations Medical Necessity Statement*: Needs to be in hospital for IV antibiotics. Coding Level of Care Code Acute Code for [facility] Diagnoses Cellulitis L03.90 Dehydration E86.0 Injury of lower leg, right S89.91XA
--- NOTE | 2022-12-02 18:38 | PC.NURSE ---
SHIFT SUMMARY PATIENT HAS DONE OKAY TODAY. MINIMAL PAIN. SWELLING AND REDNESS IMPROVED IN RLE. PATIENT HAS AMBULATED WELL TODAY WITH A WALKER. PATIENT HAS HAD A LOT OF ANXIETY TODAY DUE TO BEING HOSPITALIZED. THIS NURSE OPENED THE SHADES AND ENCOURAGED PATIENT TO GET OUT OF THE BED. BP HAS BEEN ELEVATED TODAY. DISCONTINUED IV FLUIDS PER DR. GRANDA, CONTINUE TO MONITOR.
[2022-12-02] MEDS: vancomycin 1,250 MG/250 ML PIGGYBACK 250 MG IV (22:25)
[2022-12-03] VITALS: BP 158/98; PULSE 93; RESP 16; TEMP 36.7; O2SAT 94
[2022-12-03] MEDS: enoxaparin 40 mg/0.4 mL Syringe SUBCUT (00:56)
[2022-12-03 04:00] VITALS: BP 170/90; PULSE 96; RESP 17; TEMP 36.7; O2SAT 94
[2022-12-03 04:40] LABS: Basophils # 0.1 10^3/uL (0.0-0.1); Basophils % 0.6 %; Eosinophils # 0.4 10^3/uL (0.0-0.8); Eosinophils % 4.2 %; Hematocrit 39.1 % (42.0-52.0); Hemoglobin 13.2 g/dL (11.7-16.6); Lymphocytes # 1.8 10^3/uL (0.8-4.8); Lymphocytes % 18.2 %; Mean Corpuscular HGB Conc 33.8 g/dL (30.0-36.0); Mean Corpuscular Hemoglobin 31.7 pg (28.0-34.0); Mean Corpuscular Volume 93.8 fl (80-94); Mean Platelet Volume 9.4 fL (7.4-10.4); Monocytes % 9.8 %; Neutrophils # 6.51 10^3/uL (1.8-7.7); Neutrophils % 66.3 %; Nucleated Red Blood Cells % 0 %; Platelet Count 209 10^3/cmm (130-400); Red Blood Count 4.17 10^6/uL (4.1-5.3); White Blood Count 9.8 10^3/uL (4.0-10.0)
[2022-12-03 05:01] LABS: Alanine Aminotransferase 30 U/L (0-41); Albumin Level 3.1 g/dL (3.5-5.2); Alkaline Phosphatase 102 U/L (40-130); Anion Gap 13.1 (5-19); Aspartate Amino Transferase 21 U/L (0-40); Blood Urea Nitrogen 16 mg/dL (8-23); Calcium 8.6 mg/dL (8.5-10.5); Carbon Dioxide 25 mmol/L (22-29); Chloride 105 mmol/L (98-107); Globulin 3.4 g/dL (1.3-4.6); Glomerular Filtration Rate 55.9 mL/min (90-130); Glucose 97 mg/dL (65-115); Osmolality Calculated 289 mOsm/kg (285-295); Potassium 4.1 mmol/L (3.5-5.1); Sodium 139 mmol/L (136-145); Total Bilirubin 0.7 mg/dL (0.15-1.2); Total Protein 6.5 g/dL (6.6-8.7)
[2022-12-03] MEDS: piperacillin-tazobactam 3.375 GM in sodium chloride 0.9% (plus) 50 ML IV ×3 (07:44→23:34)
[2022-12-03 07:52] VITALS: BP 194/119; PULSE 93; RESP 18; TEMP 36.5; O2SAT 95
[2022-12-03] MEDS: labetalol 5 mg/mL SDV 20mL 10 MG IVP (08:36)
[2022-12-03] MEDS: vancomycin 1,250 MG/250 ML PIGGYBACK 250 MG IV ×2 (10:55→22:32)
[2022-12-03 11:26] VITALS: BP 177/95; PULSE 90; TEMP 36.4; O2SAT 96
[2022-12-03] MEDS: amlodipine 5 mg Tablet PO (11:42)
--- NOTE | 2022-12-03 15:54 | PM.PN ---
Subjective Subjective: Patient was seen and examined this morning, right lower extremity pain, swelling and redness is improving. Blood pressure has been significantly elevated, received a dose of labetalol IV today, and has been started on p.o. amlodipine. Medications: Medication Review Details: Generic Name Dose Route Start Last Admin Trade Name Freq PRN Reason Stop Dose Admin Amlodipine Besylat e 5 mg 12/03/22 11:36 12/03/22 11:42 Amlodipine 5 Mg Tablet PO 5 mg DAILY VICKY Administration Enoxaparin Sodium 40 mg 11/30/22 01:15 12/03/22 00:56 Enoxaparin 40 Mg /0.4 Ml Syringe SUBCUT 40 mg Q24H VICKY Administration Hydromorphone HCl 0.4 mg 11/30/22 08:17 12/01/22 12:14 Hydromorphone 1 Mg/Ml Inj 1 Ml IVP 0.4 mg Q4H PRN Administration PAIN Piperacillin Sod/T azobactam 50 mls @ 12.5 mls /hr 11/30/22 07:00 12/03/22 14:51 Sod 3.375 gm/ So dium Chloride IV 12.5 mls/hr Q8H VICKY Administration Protocol Vancomycin/PEG/NAD A/Lysine/Water 1,250 mg in 250 m ls @ 250 mls/hr 12/02/22 23:00 12/03/22 12:00 Vancocin IV Infused Q12H VICKY Infusion Oxycodone/Acetamin ophen 1 tab 11/30/22 01:03 12/02/22 22:29 Oxycodone-Apap 5 -325 Mg Tablet PO 1 tab Q4H PRN Administration SEVERE PAIN Vitals/I&O/Wt Last Vital Signs Temp 97.5 F L 12/03/22 11:26 Pulse 90 12/03/22 11:26 Resp 18 12/03/22 07:52 BP 177/95 12/03/22 11:26 Pulse Ox 96 12/03/22 11:26 O2 Del Method Room Air 12/03/22 04:00 12/03/22 12/03/22 12/03/22 06:59 14:59 22:59 Intake Total 300 / 2289.583 540 / 540 Output Total 850 / 2400 800 / 800 Balance -550 / -110.417 -260 / -260 Physical Exam Const: COMMON NORMALS: patient oriented x3 Resp: COMMON NORMALS: clear to auscultation bilaterally EFFORT & INSPECTION: Yes symmetric chest movement AUSCULTATION: clear to auscultation bilaterally Cardio: COMMON NORMALS: regular rate, regular rhythm, S1 normal heart sound present, S2 normal heart sound present, No gallops present (Cardio), No murmurs present (Cardio), No rub (Cardio) and Peripheral pulses 2+ throughout RATE: regular rate RHYTHM: regular rhythm HEART SOUNDS: S1 normal heart sound present and S2 normal heart sound present PERIPHERAL PULSES: Peripheral pulses 2+ throughout GI: COMMON NORMALS: Normal to inspection, nondistended, normoactive bowel sounds present, Soft to palpation, non-tender, No hepatosplenomegaly present and no masses AUSCULTATION: Yes normoactive bowel sounds PALPATION: Yes Soft to palpation and Yes No hepatosplenomegaly present RECTAL EXAM: Yes deferred Extremity: NARRATIVE EXTREMITY EXAM: Right lower extremity tenderness swelling and redness present, right feet 2+ nonpitting edema. Neuro: COMMON NORMALS: patient oriented x3 Data 12/03/22 04:20 12/03/22 04:20 A&P Assessment and plan (1) Cellulitis: (2) Dehydration: (3) Injury of lower leg, right: Plan 62-year-old male with complaint of right lower extremity swelling erythema warmth and pain post right heel nail injury likely secondary to cellulitis Right lower extremity CT scan with contrast was done today:Extensive diffuse soft tissue edema and cellulitis, has not shown any features suggestive of necrotizing fasciitis or gas gangrene. Right lower extremity arterial duplex is negative for any stenosis Right lower extremity Doppler vein is negative for DVT Blood culture:NTD On IV fluids IVs vancomycin 1 g every 12 IV Zosyn 3.375 g every 8 hours Pain control with p.o. Percocet 1 tab every 4 hours as needed. We will plan to discharge him on p.o. antibiotics. Uncontrolled hypertension: Currently on amlodipine Monitor blood pressure for now Low-sodium diet DVT prophylaxis with subcu heparin He is full code for now Attestations Medical Necessity Statement*: Needs to be in hospital for IV antibiotic, as well as for monitoring of blood pressure. Coding Level of Care Code Acute Code for [facility] Diagnoses Cellulitis L03.90 Dehydration E86.0 Injury of lower leg, right S89.91XA
[2022-12-03 16:00] VITALS: BP 162/89; PULSE 97; TEMP 36.6; O2SAT 99
[2022-12-03 20:00] VITALS: BP 162/85; PULSE 93; RESP 17; TEMP 37.2; O2SAT 97
[2022-12-04] VITALS: BP 157/87; PULSE 95; RESP 18; TEMP 37.1; O2SAT 95
[2022-12-04] MEDS: enoxaparin 40 mg/0.4 mL Syringe SUBCUT (02:08)
[2022-12-04 04:00] VITALS: BP 176/104; PULSE 60; RESP 18; TEMP 36.7; O2SAT 95
[2022-12-04 04:23] LABS: Basophils # 0.1 10^3/uL (0.0-0.1); Basophils % 0.7 %; Eosinophils # 0.4 10^3/uL (0.0-0.8); Eosinophils % 3.9 %; Hemoglobin 13.1 g/dL (11.7-16.6); Lymphocytes # 2.1 10^3/uL (0.8-4.8); Lymphocytes % 19.7 %; Mean Corpuscular HGB Conc 33.6 g/dL (30.0-36.0); Mean Corpuscular Hemoglobin 31.6 pg (28.0-34.0); Mean Platelet Volume 9.9 fL (7.4-10.4); Monocytes % 9.8 %; Neutrophils # 6.75 10^3/uL (1.8-7.7); Neutrophils % 64.6 %; Nucleated Red Blood Cells % 0 %; Platelet Count 239 10^3/cmm (130-400); Red Blood Count 4.15 10^6/uL (4.1-5.3); White Blood Count 10.5 10^3/uL (4.0-10.0)
[2022-12-04 04:59] LABS: Alanine Aminotransferase 42 U/L (0-41); Albumin Level 3.1 g/dL (3.5-5.2); Alkaline Phosphatase 115 U/L (40-130); Anion Gap 14.6 (5-19); Aspartate Amino Transferase 28 U/L (0-40); Blood Urea Nitrogen 14 mg/dL (8-23); Calcium 8.8 mg/dL (8.5-10.5); Carbon Dioxide 22 mmol/L (22-29); Chloride 106 mmol/L (98-107); Globulin 3.3 g/dL (1.3-4.6); Glomerular Filtration Rate 55.9 mL/min (90-130); Glucose 125 mg/dL (65-115); Osmolality Calculated 290 mOsm/kg (285-295); Potassium 3.6 mmol/L (3.5-5.1); Sodium 139 mmol/L (136-145); Total Bilirubin 0.4 mg/dL (0.15-1.2); Total Protein 6.4 g/dL (6.6-8.7)
[2022-12-04 05:48] VITALS: BP 162/110
[2022-12-04] MEDS: hyDRALAzine 20 mg/mL INJ 1 mL 5 MG IVP (06:05)
[2022-12-04] MEDS: piperacillin-tazobactam 3.375 GM in sodium chloride 0.9% (plus) 50 ML IV (06:09)
[2022-12-04 07:42] VITALS: BP 149/85; PULSE 100; RESP 17; TEMP 36.9; O2SAT 97
[2022-12-04] MEDS: amlodipine 10 mg Tablet PO (08:54)
--- NOTE | 2022-12-04 09:19 | PM.DCS ---
Discharge Providers Date of Admission: 11/29/22 23:45 Date of Discharge: December 04, 2022 Attending Provider at Admission: Luisana Worley MD Attending Provider at Discharge: Talha Benites MD Diagnoses at Discharge Discharge Diagnosis (1) Cellulitis: Status: Acute (2) Dehydration: Status: Acute (3) Injury of lower leg, right: Status: Acute Reason for Visit Reason for Visit: right leg pain Hospital Course Hospital Course 62-year-old male with complaint of right lower extremity swelling erythema warmth and pain post right heel nail injury he was admitted for the management of right lower extremity cellulitis, CT with contrast of right lower extremity showed: Extensive diffuse soft tissue edema and cellulitis, Right lower extremity arterial duplex is negative for any stenosis,Right lower extremity Doppler vein is negative for DVT,Blood culture:NTD. Initially there was also concern for possible developing compartment syndrome orthopedic was on board, based on his overall presentation compartment syndrome was ruled out, no attempt was made to measure the intracompartmental pressure, during the hospital stay patient was kept on broad-spectrum antibiotics, he was discharged on p.o. Doxy and levofloxacin for 2 weeks, during the hospital stay patient was also managed for uncontrolled hypertension, he was started on amlodipine, and was discharged in amlodipine 10 mg p.o. daily, has been asked to keep a blood pressure log, and take it with him to the primary care physician, at that point in time, adjustment to, antihypertensive medications can be made. At the time of discharge, right lower extremity swelling, redness was improving, pain was improving, during the hospital stay he remained afebrile, he was discharged stable condition to home. Physical Exam Const: COMMON NORMALS: patient oriented x3 Resp: COMMON NORMALS: clear to auscultation bilaterally EFFORT & INSPECTION: Yes symmetric chest movement AUSCULTATION: clear to auscultation bilaterally Cardio: COMMON NORMALS: regular rate, regular rhythm, S1 normal heart sound present, S2 normal heart sound present, No gallops present (Cardio), No murmurs present (Cardio), No rub (Cardio) and Peripheral pulses 2+ throughout RATE: regular rate RHYTHM: regular rhythm HEART SOUNDS: S1 normal heart sound present and S2 normal heart sound present PERIPHERAL PULSES: Peripheral pulses 2+ throughout GI: COMMON NORMALS: Normal to inspection, nondistended, normoactive bowel sounds present, Soft to palpation, non-tender, No hepatosplenomegaly present and no masses AUSCULTATION: Yes normoactive bowel sounds PALPATION: Yes Soft to palpation and Yes No hepatosplenomegaly present RECTAL EXAM: Yes deferred Extremity: NARRATIVE EXTREMITY EXAM: Right lower extremity tenderness swelling and redness present, right feet 2+ nonpitting edema. Neuro: COMMON NORMALS: patient oriented x3 Discharge Data Studies Completed and Pending Completed Studies During Hospitalization Category Date Time Status CT lower leg RT w con [id number] Routine Cat Scan 12/01/22 09:26 Completed US arterial duplex lower extremity RT [CV arterial Ultrasound 12/01/22 13:57 [place] [address]] Routine US venous duplex lower extremity RT [CV venous duplex Ultrasound 12/01/22 13:56 [place] [address]] Routine Pending at discharge Category Date Time Status Blood Culture Stat Lab 11/29/22 22:30 Results Vancomycin Trough Timed Lab 12/04/22 22:00 Ordered Radiology Impressions Lower Extremity CT 12/01/22 09:26 IMPRESSION: 1. Extensive diffuse soft tissue edema and cellulitis. 2. No focal mass. 3. No osseous destruction to suggest osteomyelitis radiographically or by CT. 4. Severe, chronic degenerative changes at the ankle joint. Venous Duplex 12/01/22 13:56 IMPRESSION: No sonographic evidence of deep vein thrombosis. Duplex Scan Lower Extremity Artery 12/01/22 13:57 IMPRESSION: No hemodynamically significant stenosis or occlusion. Laboratory Results WBC 10.5 10^3/uL (4.0-10.0) H 12/04/22 03:42 RBC 4.15 10^6/uL (4.1-5.3) 12/04/22 03:42 Hgb 13.1 g/dL (11.7-16.6) 12/04/22 03:42 Hct 39.0 % (42.0-52.0) L 12/04/22 03:42 MCV 94.0 fl (80-94) 12/04/22 03:42 MCH 31.6 pg (28.0-34.0) 12/04/22 03:42 MCHC 33.6 g/dL (30.0-36.0) 12/04/22 03:42 RDW 14.0 % (12.1-15.1) 12/04/22 03:42 Plt Count 239 10^3/cmm (130-400) 12/04/22 03:42 MPV 9.9 fL (7.4-10.4) 12/04/22 03:42 Neut % (Auto) 64.6 % 12/04/22 03:42 Lymph % (Auto) 19.7 % 12/04/22 03:42 Webb % (Auto) 9.8 % 12/04/22 03:42 Eos % (Auto) 3.9 % 12/04/22 03:42 Baso % (Auto) 0.7 % 12/04/22 03:42 Neut # (Auto) 6.75 10^3/uL (1.8-7.7) 12/04/22 03:42 Lymph # (Auto) 2.1 10^3/uL (0.8-4.8) 12/04/22 03:42 Webb # (Auto) 1.0 10^3/uL (0.2-0.9) H 12/04/22 03:42 Eos # (Auto) 0.4 10^3/uL (0.0-0.8) 12/04/22 03:42 Baso # (Auto) 0.1 10^3/uL (0.0-0.1) 12/04/22 03:42 Nucleated RBC % (auto) 0 % 12/04/22 03:42 Nucleated RBCs # 0.0 /100WBC 12/04/22 03:42 ESR 7 mm/hr (0-10) 11/29/22 22:12 Sodium 139 mmol/L (136-145) 12/04/22 03:42 Potassium 3.6 mmol/L (3.5-5.1) 12/04/22 03:42 Chloride 106 mmol/L (98-107) 12/04/22 03:42 Carbon Dioxide 22 mmol/L (22-29) 12/04/22 03:42 Anion Gap 14.6 (5-19) 12/04/22 03:42 BUN 14 mg/dL (8-23) 12/04/22 03:42 Creatinine 1.3 mg/dL (0.7-1.2) H 12/04/22 03:42 GFR Calculation 55.9 mL/min (90-130) L 12/04/22 03:42 Glucose 125 mg/dL (65-115) H 12/04/22 03:42 Calculated Osmolality 290 mOsm/kg (285-295) 12/04/22 03:42 Lactic Acid 1.7 mmol/L (0.5-2.2) 11/29/22 22:30 Calcium 8.8 mg/dL (8.5-10.5) 12/04/22 03:42 Phosphorus 2.4 mg/dL (2.5-4.5) L 12/01/22 04:17 Magnesium 2.0 mg/dL (1.7-2.3) 12/01/22 04:17 Total Bilirubin 0.4 mg/dL (0.15-1.2) 12/04/22 03:42 AST 28 U/L (0-40) 12/04/22 03:42 ALT 42 U/L (0-41) H 12/04/22 03:42 Alkaline Phosphatase 115 U/L (40-130) 12/04/22 03:42 C-Reactive Protein 147.6 mg/L (0.0-4.9) H 11/29/22 22:12 Total Protein 6.4 g/dL (6.6-8.7) L 12/04/22 03:42 Albumin 3.1 g/dL (3.5-5.2) L 12/04/22 03:42 Globulin 3.3 g/dL (1.3-4.6) 12/04/22 03:42 Urine Color Yellow (Yellow) 11/30/22 10:13 Urine Appearance Clear (CLEAR) 11/30/22 10:13 Urine pH 5 (5-7) 11/30/22 10:13 Ur Specific [place] 1.025 (1.005-1.030) 11/30/22 10:13 Urine Protein Neg (Negative) 11/30/22 10:13 Urine Glucose (UA) Norm (Normal) 11/30/22 10:13 Urine Ketones Negative (Negative) 11/30/22 10:13 Urine Blood 2+ (Negative) H 11/30/22 10:13 Urine Nitrate Negative (Negative) 11/30/22 10:13 Urine Bilirubin Neg (Negative) 11/30/22 10:13 Urine Urobilinogen Norm mg/dL (Negative) 11/30/22 10:13 Ur Leukocyte Esterase Negative (Negative) 11/30/22 10:13 Urine RBC 0-4 /hpf (0-2) H 11/30/22 10:13 Urine WBC 0-4 /hpf (0-5) H 11/30/22 10:13 Ur Squamous Epith Cells 0-4 /hpf (0-5) H 11/30/22 10:13 Amorphous Sediment Not Reportable 11/30/22 10:13 Urine Bacteria Trace /hpf (NONE) 11/30/22 10:13 Vancomycin Trough 9.5 ug/mL (10-15) L 12/02/22 10:12 Vitals Last Vital Signs Temp 98.4 F 12/04/22 07:42 Pulse 100 12/04/22 07:42 Resp 17 12/04/22 07:42 BP 149/85 12/04/22 07:42 Pulse Ox 97 12/04/22 07:42 O2 Del Method Room Air 12/03/22 20:00 Discharge Plan Discharge Patient Disposition: Home Condition: Stable Prescriptions: New doxycycline monohydrate 100 mg capsule 100 mg PO BID 14 Days Qty: 28 0RF levofloxacin 750 mg tablet 750 mg PO DAILY 14 Days Qty: 14 0RF amlodipine 10 mg Tablet 10 mg PO DAILY 30 Days Qty: 30 3RF Continued ibuprofen 200 mg Tablet 400 - 600 mg PO QAM PRN (Reason: Pain) oxycodone-acetaminophen [Percocet] 5-325 mg tablet 1 tab PO Q8H PRN (Reason: pain) Qty: 7 0RF zinc acetate 50 mg (zinc) Capsule 50 mg PO DAILY ubieibje-[id number]-vit K-lycop 400-20-300 mcg Tablet 1 tab PO DAILY Discontinued doxycycline hyclate 100 mg capsule 100 mg PO BID 7 Days Qty: 14 0RF Discharge Orders: Discharge Order (Routine); Ordered 12/04/22 Ordered By: Talha Benites Referrals: Fredy Wooten MD [Physician] - 12/22/22 9:30 am Patient Instructions: Doxycycline (By mouth), Amlodipine (By mouth), Levofloxacin (By mouth), Opioid Safety Discharge Attestations Time Spent in Discharge Care*: less than 30 min Quality Metrics Clinical Quality Measures [ No reported AMI, CVA or VTE this stay] Coding Level of Care Code Acute Code for [facility] Diagnoses Cellulitis L03.90 Dehydration E86.0 Injury of lower leg, right S89.91XA
[2022-12-04 10:27] VITALS: BP 149/85; PULSE 100; RESP 17; TEMP 36.9; O2SAT 97
--- NOTE | 2022-12-04 15:57 | PC.NURSE ---
this nurse removed both IV lines , flushed before hand and used 2x2 and coban to secure. lines were intact after removal and pt tolerated well.
== END 2022-12-04 11:06 | disposition home or self-care (01) | DRG 603 ==
LOC: ER 23:33 → MEDSURG 23:45
PROVIDERS: Internal Medicine; Admitting Provider Internal Medicine; Emergency Provider Emergency Medicine; Visit Provider Internal Medicine
DX: L03.115 Cellulitis of right lower limb (principal); Z79.891 Long term (current) use of opiate analgesic; Z23 Encounter for immunization; M17.12 Unilateral primary osteoarthritis, left knee; M19.071 Primary osteoarthritis, right ankle and foot; Z86.14 Personal history of Methicillin resistant Staphylococcus aureus infection; E86.0 Dehydration; S91.341A Puncture wound with foreign body, right foot, initial encounter; W45.0XXA Nail entering through skin, initial encounter; S80.11XA Contusion of right lower leg, initial encounter; I10 Essential (primary) hypertension
CPT/HCPCS: 36415; 73701; 80053; 80069; 80202; 81001; 83605; 83735; 84100; 85025; 85651; 86140; 87040; 90471; 90714; 93926; 93971; 96365; 96367; 96372; 96375; 99222; 99285; J0360; J1170; J1650; J2405; J2543; J3370; J3490; J7030; J7050; Q3014; Q9967

== ENCOUNTER → 2022-12-22 10:39 | Outpatient (BNVA) | payer MEDICAID, SELFPAY | PROVIDERS: Visit Provider Family Medicine | DX: N17.9 Acute kidney failure, unspecified (principal) | CPT/HCPCS: 80048 ==

== ENCOUNTER → 2023-05-27 11:53 | Outpatient (BNVA) | payer MEDICAID, SELFPAY | PROVIDERS: PCP Family Medicine; Visit Provider Family Medicine | DX: I10 Essential (primary) hypertension (principal); M19.90 Unspecified osteoarthritis, unspecified site; M19.071 Primary osteoarthritis, right ankle and foot; M17.12 Unilateral primary osteoarthritis, left knee | CPT/HCPCS: 73562 ==

== ENCOUNTER → 2023-06-10 14:53 | Outpatient (BNVA) | payer MEDICAID, SELFPAY | PROVIDERS: PCP Family Medicine; Visit Provider Podiatrist Foot & Ankle Surgery | DX: M25.571 Pain in right ankle and joints of right foot (principal); G89.29 Other chronic pain; M19.071 Primary osteoarthritis, right ankle and foot | CPT/HCPCS: 73610 ==

== ENCOUNTER 2023-08-06 15:16 | Emergency (ER) | payer MEDICAID, SELFPAY ==
[2023-08-06 15:22] VITALS: BP 163/98; PULSE 91; RESP 16; TEMP 36.6; O2SAT 97; BMI 30.1
--- NOTE | 2023-08-06 15:27 | XR_ITS ---
WS: [id number] Examination: XR shoulder RT min 2V* [id number] Reason for Exam: injury Date: 08/06/2023 Comparison: None Findings: The bone density is maintained. There is no destruction There is no displaced fracture or dislocation Minimal AC joint degenerative changes are noted. There are mild chronic changes identified at the gre ater tuberosity. Impression: There is no acute bony abnormality. Chronic changes of the shoulder are noted.
--- NOTE | 2023-08-06 15:27 | XR_ITS ---
WS: [id number] Examination: XR knee LT 3V* [id number] Reason for Exam: injury Date: 08/06/2023 Comparison: 05/27/2023 Findings: The bone density is maintained. There is no destruction. Severe arthritic changes are identified with large marginal and patellar osteophytes. Significant anterior compartment and medial compartment degenerative changes are noted. The medial co mpartment narrowing appears greater than on the previous study. Impression: Severe osteoarthritic changes of the left knee are identified. The medial compartment narrowing appea rs greater
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
== END 2023-08-06 16:47 | disposition home or self-care (01) ==
PROVIDERS: Emergency Provider Nurse Practitioner Family; PCP Family Medicine
DX: S46.911A Strain of unspecified muscle, fascia and tendon at shoulder and upper arm level, right arm, initial encounter (principal); M25.562 Pain in left knee; Y04.0XXA Assault by unarmed brawl or fight, initial encounter
CPT/HCPCS: 73030; 73562; 99284

== ENCOUNTER 2024-02-06 21:32 | Emergency (ER) | payer MEDICAID, SELFPAY ==
[2024-02-06 21:41] VITALS: BP 151/93; PULSE 95; RESP 17; TEMP 37; O2SAT 96; BMI 29.5
[2024-02-06 22:17] VITALS: BP 140/88; PULSE 88; RESP 18; O2SAT 98
--- NOTE | 2024-02-06 22:27 | XRR_ITS ---
PROCEDURE INFORMATION: Exam: XR Left Hip Exam date and time: 02/06/2024 10:31 PM Age: 64 years old Clinical indication: Hip pain; Left hip; Additional info: Lt hip/lower back pain; Sciatic nerve pain; Arthritis TECHNIQUE: Imaging protocol: Radiologic exam of the left hip. Views: 2 or 3 views hip with pelvis when performed. COMPARISON: No relevant prior studies available. FINDINGS: Bones/joints: No acute fracture or dislocation. Moderate to severe degenerative changes of the hip with joint space narrowing and near [id number] articulation. Soft tissues: Unremarkable. XR/XR hip LT 2-3V wo/w pel* [id number] IMPRESSION: 1. No acute osseous findings. 2. Moderate to severe degenerative changes of the hip.
[2024-02-06] MEDS: dexamethasone 10 mg/mL INJ IM (22:40)
[2024-02-06] MEDS: ketorolac 30 mg/mL INJ IM (22:40)
--- NOTE | 2024-02-06 22:47 | ED_ITS ---
HPI - Back Pain/Injury General: Chief Complaint: Back Pain/Injury Stated Complaint: pain in leg, hip front and rear Time Seen by Provider: 02/06/24 21:57 Source: patient Mode of arrival: ambulatory Limitations: no limitations History of Present Illness: Patient presents today for evaluation treatment of complaints of left mid buttock, left groin, and left anterior thigh pain. Patient reports off-and-on episodes of this pain now for a while. He reports issues with his left knee where he had originally been being seen by orthopedics. He received an injection earlier this year but admits he missed multiple appointments with both orthopedics and PCP-citing being busy, forgetfulness, or just in too much pain. He denies any specific injury prior to onset of either his knee pain or his buttock/hip/thigh pain. Patient states the pain is worse when he sits for prolonged amounts of time. He has a hard time getting back up but, states once he is stood up and moving around, does much better. He states he typically only takes Tylenol and occasionally a pain pill that his mother gives him. He denies tingling or numbness into the foot. No bowel or bladder dysfunction. No reports of saddle paresthesia. 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 Related Data Home Medications Medication Instructions Recorded Confirmed qvvjmykx-bogunuqs-ggurm acid 400 1 tab PO DAILY 11/30/22 06/22/23 mcg-vit K 20 mcg-lycop 300 mcg tablet zinc acetate 50 mg (zinc) capsule 50 mg PO DAILY 11/30/22 06/22/23 Previous Rx's Medication Instructions Recorded arizone AFO #1 ea 06/10/23 amlodipine 10 mg tablet See Rx Instructions .Route 07/22/23 .COMPLEX #90 tabs hydrochlorothiazide 25 mg tablet See Rx Instructions .Route 02/01/24 .COMPLEX #14 tabs meloxicam 15 mg tablet See Rx Instructions .Route 02/01/24 .COMPLEX #14 tabs celecoxib 100 mg capsule (Celebrex) 100 mg PO BID #20 caps 02/06/24 methylprednisolone 4 mg tablets in See Rx Instructions PO .COMPLEX 02/06/24 a dose pack #21 ea tizanidine 4 mg capsule 4 mg PO Q8H PRN muscle spasticity 02/06/24 #20 caps Allergies Allergy/AdvReac Type Severity Reaction Status Date / Time No Known Allergies Allergy Verified 02/06/24 21:49 Review of Systems General: Reports: 10 or more systems reviewed and unremarkable except in HPI and below PFSH ED PFSH: Medical History Puncture wound of foot Injury of lower leg, right Dehydration Cellulitis Contusion of lower leg, right Family History Brother , 62 y/o due to blood clot Clotting disorder Mother Cancer ovarian Father Cancer leukemia Other CAD (coronary artery disease) Hypertension Denies family history of Diabetes Dementia Hyperlipidemia Psychiatric illness Chronic kidney disease (CKD) Anesthesia complication Bleeding disorder Lung disease Stroke Social History Smoking and tobacco/nicotine status: never used tobacco/nicotine Alcohol intake: current Alcohol intake frequency: holidays/special occasions only Substance/Drug Use: never Lives independently: Yes Current occupational status: employed 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 Jenny/Zoroastrianism: Jainism Special jenny needs: No Agree to transfusion: Yes Physical Exam Const: COMMON NORMALS: no acute distress, patient oriented x3 and alert HENMT: COMMON NORMALS: normocephalic, atraumatic and hearing grossly normal bilaterally HEAD & SCALP: normocephalic and atraumatic Eye: COMMON NORMALS: Equal, round and reactive pupils present, EOMs intact bilaterally and conjunctivae normal CONJUNCTIVA: Yes conjunctivae normal PUPIL: Yes Equal, round and reactive pupils present Neck/C-Spine: COMMON NORMALS: full ROM and no JVD Lymph: LYMPHATIC: no lymphadenopathy noted Resp: COMMON NORMALS: normal respiratory effort, No retractions and No use of accessory muscles Cardio: COMMON NORMALS: no JVD and regular rate RATE: regular rate Back/Pelvis: OTHER: Ability to flex and extend. Reproducible tenderness to left mid buttock region- just offset laterally from the SI joint. Extremity: NARRATIVE EXTREMITY EXAM: Patient is full range of motion to all extremities. He is ambulatory weightbearing in the emergency department. While he indicates discomfort, is able to perform a straight leg raise and is able to recline and sit up right independently. Patient with pinpoint tenderness in the area of the left mid buttock region. No signs of lower extremity swelling, pallor, or erythema. Neuro: COMMON NORMALS: patient oriented x3 SENSORIUM/ORIENTATION: Yes alert OTHER: Neurovascularly intact Psych: COMMON NORMALS: mental status grossly normal, Normal thought process present, cooperative and normal affect THOUGHT PROCESS: Normal thought process present OTHER: Histrionic. Skin: COMMON NORMALS: no rashes or lesions noted and turgor normal GENERAL SKIN EXAM: no rashes or lesions noted and turgor normal Course Vital Signs: Vital signs: Vital Signs Temperature 98.6 F 02/06/24 21:41 Pulse Rate 87 02/06/24 23:46 Respiratory Rate 16 02/06/24 23:46 Blood Pressure 157/114 02/06/24 23:46 Pulse Oximetry 100 02/06/24 23:46 Oxygen Delivery Me thod Room Air 02/06/24 22:17 MDM - Back Pain/Injury Medical Decision Making Patient's x-ray today shows significant osteoarthritic changes to the left hip. Discussed this with the patient. While I do think patient has significant osteoarthritis I also think patient is experiencing piriformis syndrome as he indicates pain while seated distributed from the left buttock into the left hip region and across the left anterior thigh-a sciatica-like distribution. Patient was treated acutely here. I did note in his chart that he indicated that in the past, meloxicam did not seem to work well for him. I will try him on Celebrex short course to see if that helps as well as medication to help with sciatic nerve pain. Informational handout about piriformis syndrome and osteoarthritis provided to him with recommendations to call the orthopedist to get back in for continued monitoring and treatment of his osteoarthritic changes in his large joints. Patient verbalizes understanding and agreement to treatment plan. I was in the room while nursing was attempting to discharge patient. I did note patient was seated upright with legs dangling off either side of the bed, constantly moving, and using his arm while trying to obtain a blood pressure reading. I believe the blood pressure taken prior to discharge is falsely elevated due to patient activity at that time. Differential Diagnosis Likely lumbar radiculopathy and sciatica; Unlikely strain of lumbar region, pyelonephritis, thoracic back pain or discitis Labs Radiology Impressions Hip/Pelvis X-Ray 02/06/24 22:27 IMPRESSION: 1. No acute osseous findings. 2. Moderate to severe degenerative changes of the hip. All radiology interpretation(s) finalized by discharge Discharge Plan Discharge Patient Disposition: Home Clinical Impression: Osteoarthritis of left hip, Piriformis syndrome of left side Condition: Stable Prescriptions: New Celebrex 100 mg capsule 100 mg PO BID Qty: 20 0RF methylprednisolone 4 mg tablets,dose pack See Rx Instructions PO .COMPLEX Qty: 21 0RF Rx Instructions: orally per package directions tizanidine 4 mg capsule 4 mg PO Q8H PRN (Reason: muscle spasticity) Qty: 20 0RF No Action (DME) arizone AFO See Rx Instructions .Route .MEDSUPPLY Qty: 1 0RF Rx Instructions: As directed made by the antony holley amlodipine 10 mg tablet See Rx Instructions .ROUTE .COMPLEX Qty: 90 1RF Dose Instruction: TAKE 1 TABLET BY MOUTH EVERY DAY Rx Instructions: TAKE 1 TABLET BY MOUTH EVERY DAY hydrochlorothiazide 25 mg tablet See Rx Instructions .ROUTE .COMPLEX Qty: 14 0RF Dose Instruction: TAKE 1 TABLET BY MOUTH EVERY DAY IN THE MORNING Rx Instructions: TAKE 1 TABLET BY MOUTH EVERY DAY IN THE MORNING meloxicam 15 mg tablet See Rx Instructions .ROUTE .COMPLEX Qty: 14 0RF Dose Instruction: TAKE 1 TABLET BY MOUTH EVERY DAY Rx Instructions: TAKE 1 TABLET BY MOUTH EVERY DAY zinc acetate 50 mg (zinc) Capsule 50 mg PO DAILY ivppdqie-zcg-kcyuh-vit K-lycop 400-20-300 mcg Tablet 1 tab PO DAILY Discharge Orders: Discharge ED (Routine); Ordered 02/06/24 Ordered By: Tiffani Reaves Discharge Diet: Usual diet Discharge Activity: Increase activity as tolerated Patient Instructions: Osteoarthritis (ED), Piriformis Syndrome (ED) Activity Restrictions/Additional Instructions: X-ray today confirm significant osteoarthritis in your left hip. As we discussed, I think you may have a couple of different things going on here. You probably have acute worsening of chronic osteoarthritis in your joints but, also display symptoms of piriformis syndrome. As we discussed, being seated on your buttocks causes irritation of the piriformis muscle where the large sciatic nerve passes through. This can cause a radiating and neuropathic pain to travel from the buttock, to the hip, across the anterior thigh to the knee. Some people even have pain that will then radiate down to the foot. It is made worse by being seated directly on that area which is why you most likely feel more comfortable sitting on a cushion. I have given you some information about osteoarthritis and piriformis syndrome for you to look over but, would highly recommend you discuss getting back in with your orthopedist to discuss your continued issues with osteoarthritis in your joints and to get back in with your primary care doctor for continued monitoring of sciatic irritation. Coding Level of Care Code ED Service Observer Chief for Jeanne Nagy
[2024-02-06 23:46] VITALS: BP 157/114; PULSE 87; RESP 16; O2SAT 100
== END 2024-02-06 23:47 | disposition home or self-care (01) ==
PROVIDERS: Emergency Provider Physician Assistant
DX: M16.12 Unilateral primary osteoarthritis, left hip (principal); G57.02 Lesion of sciatic nerve, left lower limb
CPT/HCPCS: 73502; 96372; 99284; J1100; J1885

== ENCOUNTER 2024-02-21 20:56 | Emergency (ER) | payer MEDICAID, SELFPAY ==
[2024-02-21 21:07] VITALS: BP 136/84; PULSE 83; RESP 18; O2SAT 100; BMI 29.0
--- NOTE | 2024-02-21 22:00 | W.ED.RECABL ---
HPI - Recheck/Abnormal Lab/Rx General: Chief Complaint: Recheck/Abnormal Lab/Rx Stated Complaint: Knee Pain Time Seen by Provider: 02/21/24 21:20 History of Present Illness: 64-year-old gentleman complaining of left hip more than left knee pain. He says that he has arthritis in his left knee, but lately his hip has been worse. He relates this to possibly a sciatic nerve problem, but had x-rays a couple of weeks ago showing severe grade 4 left hip osteoarthritis. He points to his anterior and lateral hip. The pain is. He states that if he sits down, it takes him a long time, sometimes 45 minutes, to stand up and be able to walk again. He is using a cane now. He is almost out of his celecoxib which was prescribed to him a couple of weeks ago here. He does not have an appointment with his primary until 2 weeks from now. Related Data Home Medications Medication Instructions Recorded Confirmed bgwbskff-ovilumbe-hnmhr acid 400 1 tab PO DAILY 11/30/22 06/22/23 mcg-vit K 20 mcg-lycop 300 mcg tablet zinc acetate 50 mg (zinc) capsule 50 mg PO DAILY 11/30/22 06/22/23 Previous Rx's Medication Instructions Recorded arizone AFO #1 ea 06/10/23 amlodipine 10 mg tablet See Rx Instructions .Route 07/22/23 .COMPLEX #90 tabs hydrochlorothiazide 25 mg tablet See Rx Instructions .Route 02/01/24 .COMPLEX #14 tabs methylprednisolone 4 mg tablets in See Rx Instructions PO .COMPLEX 02/06/24 a dose pack #21 ea celecoxib 100 mg capsule (Celebrex) 100 mg PO BID #60 caps 02/21/24 tizanidine 4 mg capsule 4 mg PO Q8H PRN muscle spasticity 02/21/24 #40 caps Allergies Allergy/AdvReac Type Severity Reaction Status Date / Time No Known Allergies Allergy Verified 02/06/24 21:49 [facility] ED PFSH: Medical History Puncture wound of foot Injury of lower leg, right Dehydration Cellulitis Contusion of lower leg, right Family History Brother , 62 y/o due to blood clot Clotting disorder Mother Cancer ovarian Father Cancer leukemia Other CAD (coronary artery disease) Hypertension Denies family history of Diabetes Dementia Hyperlipidemia Psychiatric illness Chronic kidney disease (CKD) Anesthesia complication Bleeding disorder Lung disease Stroke Social History Smoking and tobacco/nicotine status: never used tobacco/nicotine Alcohol intake: current Alcohol intake frequency: holidays/special occasions only Substance/Drug Use: never Lives independently: Yes Current occupational status: employed 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 Jenny/Gnosticist: Scientology Special jenny needs: No Agree to transfusion: Yes Physical Exam Const: COMMON NORMALS: no acute distress GENERAL APPEARANCE: cooperative; not ill appearing and not frail appearing HENMT: COMMON NORMALS: normocephalic, atraumatic and Normal external nose present HEAD & SCALP: normocephalic and atraumatic FACE & SINUS: normal facial exam and face symmetric NOSE: Normal external nose present Eye: COMMON NORMALS: Equal, round and reactive pupils present and EOMs intact bilaterally PUPIL: Yes Equal, round and reactive pupils present Neck/C-Spine: GENERAL: Yes trachea midline Chest: CHEST: Yes Symmetrical chest wall rise Resp: COMMON NORMALS: normal respiratory effort, No retractions, No use of accessory muscles and clear to auscultation bilaterally AUSCULTATION: clear to auscultation bilaterally Cardio: COMMON NORMALS: regular rate and regular rhythm RATE: regular rate RHYTHM: regular rhythm GI: COMMON NORMALS: Normal to inspection, nondistended, normoactive bowel sounds present Extremity: COMMON NORMALS: no pedal edema Neuro: AILYN COMA SCALE: document GCS findings Ailyn coma scale eye opening: Spontaneous Ailyn coma scale verbal response: Orientated [place] coma scale motor response: Obey commands [place] coma scale total score: 15 SENSORY EXAM: Yes extremities (intact) Psych: COMMON NORMALS: speech normal SPEECH: Yes normal speech Skin: COMMON NORMALS: no rashes or lesions noted GENERAL SKIN EXAM: no rashes or lesions noted Course Vital Signs: Vital signs: Vital Signs Pulse Rate 81 02/21/24 22:23 Respiratory Rate 18 02/21/24 21:07 Blood Pressure 167/89 02/21/24 22:23 Pulse Oximetry 98 02/21/24 22:23 Oxygen Delivery Me thod Room Air 02/21/24 22:03 MDM - Recheck/Abnormal Lab/Rx Medical Decision Making Reviewed this patient's x-rays of the left hip from a couple of weeks ago. He has grade 4 arthritic change of the left hip. Likely a source of pain. He also has significant varus deformity of his knee, likely from arthritis as well. His celecoxib, and his tizanidine are refilled. He is given 1 dose of dexamethasone here. He has appointment with his PCP in a couple of weeks. He was given orthopedic clinics number is a referral as well, given the grade 4 nature of his disease, and likely need for surgical intervention in the future. No radiology studies performed this visit Discharge Plan Discharge Patient Disposition: Home Clinical Impression: Osteoarthritis of left hip, Arthritis of left knee Condition: Stable Prescriptions: Continued Celebrex 100 mg capsule 100 mg PO BID Qty: 60 0RF tizanidine 4 mg capsule 4 mg PO Q8H PRN (Reason: muscle spasticity) Qty: 40 0RF Discontinued meloxicam 15 mg tablet See Rx Instructions .ROUTE .COMPLEX Qty: 14 0RF Dose Instruction: TAKE 1 TABLET BY MOUTH EVERY DAY Rx Instructions: TAKE 1 TABLET BY MOUTH EVERY DAY No Action (DME) arizone AFO See Rx Instructions .Route .MEDSUPPLY Qty: 1 0RF Rx Instructions: As directed made by the antony holley amlodipine 10 mg tablet See Rx Instructions .ROUTE .COMPLEX Qty: 90 1RF Dose Instruction: TAKE 1 TABLET BY MOUTH EVERY DAY Rx Instructions: TAKE 1 TABLET BY MOUTH EVERY DAY hydrochlorothiazide 25 mg tablet See Rx Instructions .ROUTE .COMPLEX Qty: 14 0RF Dose Instruction: TAKE 1 TABLET BY MOUTH EVERY DAY IN THE MORNING Rx Instructions: TAKE 1 TABLET BY MOUTH EVERY DAY IN THE MORNING methylprednisolone 4 mg tablets,dose pack See Rx Instructions PO .COMPLEX Qty: 21 0RF Rx Instructions: orally per package directions zinc acetate 50 mg (zinc) Capsule 50 mg PO DAILY wexuzkbz-lyr-xyjpx-vit K-lycop 400-20-300 mcg Tablet 1 tab PO DAILY Discharge Orders: Discharge ED (Routine); Ordered 02/21/24 Ordered By: John Neal Referrals: El Alexis PA [Physician Javascript Developer] - 4-7 days Patient Instructions: Osteoarthritis (ED), Opioid Safety, Pain Management Activity Restrictions/Additional Instructions: Take the celecoxib medication twice daily as prescribed. You may use the tizanidine as needed. See your doctor as scheduled. You have significant, grade 4 arthritic change of your left hip, which will likely require orthopedic referral. Number has been provided above, if you wish to make an appointment with them as well. Coding Level of Care Code ED Water And Fire Technician for Jeanne Nagy
[2024-02-21 22:03] VITALS: BP 164/105; PULSE 78; O2SAT 100
[2024-02-21] MEDS: dexamethasone 4 mg Tablet 10 MG PO (22:17)
[2024-02-21] MEDS: ketorolac 10 mg Tablet PO (22:18)
[2024-02-21 22:23] VITALS: BP 167/89; PULSE 81; O2SAT 98
== END 2024-02-21 22:25 | disposition home or self-care (01) ==
PROVIDERS: Emergency Provider Emergency Medicine
DX: M16.12 Unilateral primary osteoarthritis, left hip (principal); M17.12 Unilateral primary osteoarthritis, left knee
CPT/HCPCS: 99283; J8540

== ENCOUNTER → 2024-03-23 08:39 | Outpatient (BNVA) | payer MEDICAID, SELFPAY | PROVIDERS: PCP Family Medicine; Visit Provider Specialist | DX: M16.12 Unilateral primary osteoarthritis, left hip (principal) | CPT/HCPCS: 73502 ==

== ENCOUNTER 2024-07-20 03:44 | Emergency (ER) | payer MEDICAID, SELFPAY ==
[2024-07-20 03:52] VITALS: BP 156/96; PULSE 83; RESP 16; TEMP 36.7; O2SAT 100; BMI 30.5
[2024-07-20 03:59] VITALS: BP 156/96; PULSE 83; RESP 20; O2SAT 99
--- NOTE | 2024-07-20 04:00 | ED_ITS ---
HPI - Extremity Problem General: Chief complaint: Extremity Injury, Lower Stated complaint: Hip\Nerve Time Seen by Provider: 07/20/24 03:47 History of Present Illness: Patient presents to the ER with complaints of chronic left sciatic pain hip pain and knee pain. Patient is not had any new injury. This pain has been going on for years. He has a Dr. Looney and had a shot in it which seemed to help. They were talking about a hip replacement but not until he retires. Patient now has insurance he says he has not seen Dr. Truong for about 3 months and needs another referral. Patient has not been on any of his medicine for a long time per patient. Related Data Home Medications ?Medication ?Instructions ?Recorded ?Confirmed eearkjbj-ugqvmvmx-lyhel acid 400 1 tab PO DAILY 03/23/24 mcg-vit K 20 mcg-lycop 300 mcg tablet zinc acetate 50 mg (zinc) capsule 50 mg PO DAILY 11/3003/23/24 Previous Rx's ?Medication ?Instructions ?Recorded arizone AFO #1 ea 06/10/23 amlodipine 10 mg tablet See Rx Instructions .Route 0 03/10/24 .COMPLEX #90 tabs hydrochlorothiazide 25 mg tablet 25 mg PO DAILY #90 ta bs 03/10/24 meloxicam 15 mg tablet 15 mg PO DAILY #90 tabs 02/14 12/06 meloxicam 15 mg tablet See Rx Instructions .Route 0 06/20/24 .COMPLEX #30 tabs tizanidine 4 mg capsule 4 mg PO BID PRN muscle spast icity 07/18/24 #40 caps cyclobenzaprine 5 mg tablet 5 mg PO TID PRN muscle spa sm #14 07/20/24 tabs meloxicam 7.5 mg tablet 7.5 mg PO .Twice daily #14 t abs 07/20/24 prednisone 50 mg tablet 50 mg PO DAILY #5 tabs 07/20 Allergies Allergy/AdvReac Type Severity Reaction Status Date / Time No Known Allergies Allergy Verified 07/20/24 03:56 Review of Systems General: Reports: 10 or more systems reviewed and unremarkable except in HPI and below PFSH ED PFSH: Medical History Arthritis of left hip Puncture wound of foot Injury of lower leg, right Dehydration Cellulitis Contusion of lower leg, right Family History Brother , 62 y/o due to blood clot Clotting disorder Mother Cancer ovarian Father Cancer leukemia Other CAD (coronary artery disease) Hypertension Denies family history of Diabetes Dementia Hyperlipidemia Psychiatric illness Chronic kidney disease (CKD) Anesthesia complication Bleeding disorder Lung disease Stroke Social History Smoking and tobacco/nicotine status: never used tobacco/nicotine Alcohol intake: current Alcohol intake frequency: holidays/special occasions only Substance/Drug Use: never Lives independently: Yes Current occupational status: employed 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 Jenny/Anglican: Buddhism Special jenny needs: No Agree to transfusion: Yes Physical Exam Const: COMMON NORMALS: no acute distress, average body habitus, patient oriented x3, no limitations, healthy appearing, alert and well nourished HENMT: COMMON NORMALS: normocephalic, atraumatic, hearing grossly normal bilaterally, external ears normal and Normal external nose present HEAD & SCALP: normocephalic and atraumatic NOSE: Normal external nose present EX TERNAL EAR: Yes external ears normal Neck/C-Spine: COMMON NORMALS: no JVD Chest: COMMONS NORMALS: normal inspection of the chest and normal palpation of entire chest wall Resp: COMMON NORMALS: normal respiratory effort, No retractions, No use of accessory muscles and clear to auscultation bilaterally AUSCULTATION: clear to auscultation bilaterally Cardio: COMMON NORMALS: no JVD, regular rate, regular rhythm, S1 normal heart sound present, S2 normal heart sound present, No gallops present (Cardio), No clicks present (Cardio), No murmurs present (Cardio) and No rub (Cardio) RATE: regular rate RHYTHM: regular rhythm HEART SOUNDS: S1 normal heart sound present and S2 normal heart sound present GI: COMMON NORMALS: Normal to inspection, nondistended, normoactive bowel sounds present, Soft to palpation, non-tender, No hepatosplenomegaly present and no masses PALPATION: Yes Soft to palpation and Yes No hepatosplenomegaly present Neuro: COMMON NORMALS: patient oriented x3 SENSORIUM/ORIENTATION: Yes alert Course Vital Signs: Vital signs: Vital Signs Temperature 98.0 F 07/20/24 03:52 Pulse Rate 83 07/20/24 03:59 Respiratory Rate 20 H 07/20/24 03:59 Blood Pressure 156/96 07/20/24 03:59 Pulse Oximetry 99 07/20/24 03:59 Oxygen Delivery Me thod Room Air 07/20/24 03:59 MDM - Extremity (Nontraumatic) Medical Decision Making Patient be referred to Dr. Truong, we will give him a prescription for prednisone for meloxicam. Medical Records I reviewed the patient's medical records. Lab Data I reviewed the patient's lab results. No radiology studies performed this visit Discharge Plan Discharge Patient Disposition: Home Clinical Impression: Left sided sciatica Condition: Stable Prescriptions: New meloxicam 7.5 mg tablet 7.5 mg PO .Twice daily Qty: 14 0RF prednisone 50 mg tablet 50 mg PO DAILY Qty: 5 0RF cyclobenzaprine 5 mg tablet 5 mg PO TID PRN (Reason: muscle spasm) Qty: 14 0RF No Action (DME) arizone AFO See Rx Instructions .Route .MEDSUPPLY Qty: 1 0RF Rx Instructions: As directed made by the antony holley amlodipine 10 mg tablet See Rx Instructions .ROUTE .COMPLEX Qty: 90 1RF Dose Instruction: TAKE 1 TABLET BY MOUTH EVERY DAY Rx Instructions: TAKE 1 TABLET BY MOUTH EVERY DAY hydrochlorothiazide 25 mg tablet 25 mg PO DAILY Qty: 90 1RF meloxicam 15 mg tablet 15 mg PO DAILY Qty: 90 1RF meloxicam 15 mg tablet See Rx Instructions .ROUTE .COMPLEX Qty: 30 1RF Dose Instruction: TAKE 1 TABLET BY MOUTH EVERY DAY Rx Instructions: TAKE 1 TABLET BY MOUTH EVERY DAY tizanidine 4 mg capsule 4 mg PO BID PRN (Reason: muscle spasticity) Qty: 40 1RF zinc acetate 50 mg (zinc) Capsule 50 mg PO DAILY jfuzguyu-ymw-yxgwq-vit K-lycop 400-20-300 mcg Tablet 1 tab PO DAILY Discharge Orders: Discharge ED (Routine); Ordered 07/20/24 Ordered By: Zhou Brooks Referrals: Fredy Wooten MD [Primary Care Provider] - 1 week Patient Instructions: Pain Management, Sciatica Activity Restrictions/Additional Instructions: You have been prescribed an anti-inflammatory, steroid and muscle relaxer. Please take these as directed. network services project manager will be given you call to schedule appointment for follow-up with Dr. Truong for definitive evaluation. Otherwise please follow-up with your family practice doctor for further evaluation as needed. Print Language: Croatian Coding Level of Care Code ED Gum Scoring Machine Operator for Jeanne Nagy
[2024-07-20 04:18] VITALS: BP 163/94; PULSE 89; RESP 16; O2SAT 98
--- NOTE | 2024-07-20 07:25 | DCPLANNER ---
Message sent to Ortho
== END 2024-07-20 04:20 | disposition home or self-care (01) ==
PROVIDERS: Emergency Provider Emergency Medicine; PCP Family Medicine
DX: M54.32 Sciatica, left side (principal)
CPT/HCPCS: 99283

== ENCOUNTER → 2024-07-27 12:48 | Outpatient (BNVA) | payer MEDICAID, SELFPAY | PROVIDERS: PCP Family Medicine; Visit Provider Specialist | DX: Z01.818 Encounter for other preprocedural examination (principal); M16.12 Unilateral primary osteoarthritis, left hip | CPT/HCPCS: 36415; 73502; 80053; 81001; 85025 ==

== ENCOUNTER 2024-08-03 06:07 | Emergency (ER) | payer MEDICAID, SELFPAY ==
[2024-08-03 06:12] VITALS: BP 212/116; PULSE 86; RESP 18; TEMP 35.8; O2SAT 93; BMI 30.1
[2024-08-03 06:19] VITALS: BP 143/89; PULSE 84; RESP 18; O2SAT 98
--- NOTE | 2024-08-03 06:28 | XRR_ITS ---
PROCEDURE INFORMATION: Exam: XR Left Hip Exam date and time: 08/03/2024 6:32 AM Age: 64 years old Clinical indication: Hip pain; Left hip; Additional info: Chronic left hip pain TECHNIQUE: Imaging protocol: Radiologic exam of the left hip. Views: 2 or 3 views hip with pelvis when performed. 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 Severe degenerative change of the left hip. Decreased mineralization. Soft tissues: Unremarkable. XR/XR hip LT 2-3V wo/w pel* [id number] IMPRESSION: Stable short interval appearance of avascular necrosis and severe osteoarthritis of the left hip.
--- NOTE | 2024-08-03 06:29 | W.ED.EXTPRO ---
HPI - Extremity Problem General: Chief complaint: Extremity Problem,Nontraumatic Stated complaint: left hip pain Time Seen by Provider: 08/03/24 06:27 History of Present Illness: 64-year-old male presents to the emergency room with complaints of left hip pain. He has pretty severe degeneration of the femoral head. He is scheduled for a left hip arthroplasty with Dr. Truong in a few weeks. He states his pain has been worsening and he has been taking meloxicam and tizanidine for the pain he states it is not adequately controlling and overnight he has had worsening pain. No specific injury or fall. No fecal incontinence no urinary retention Related Data Home Medications ?Medication ?Instructions ?Recorded ?Confirmed krpuswuc-jqlxkfpp-ejrrb acid 400 1 tab PO DAILY 11/30/22 07/27/24 mcg-vit K 20 mcg-lycop 300 mcg tablet zinc acetate 50 mg (zinc) capsule 50 mg PO DAILY 11/30/22 07/27/24 Previous Rx's ?Medication ?Instructions ?Recorded arizone AFO #1 ea 06/10/23 amlodipine 10 mg tablet See Rx Instructions .Route 03/10/24 .COMPLEX #90 tabs hydrochlorothiazide 25 mg tablet 25 mg PO DAILY #90 tabs 03/10/24 meloxicam 15 mg tablet 15 mg PO DAILY #90 tabs 03/10/24 meloxicam 15 mg tablet See Rx Instructions .Route 06/20/24 .COMPLEX #30 tabs tizanidine 4 mg capsule 4 mg PO BID PRN muscle spasticity 07/18/24 #40 caps cyclobenzaprine 5 mg tablet 5 mg PO TID PRN muscle spasm #14 07/20/24 tabs meloxicam 7.5 mg tablet 7.5 mg PO .Twice daily #14 tabs 07/20/24 prednisone 50 mg tablet 50 mg PO DAILY #5 tabs 07/20/24 tramadol 50 mg tablet 50 mg PO Q8H PRN pain #20 tabs 08/03/24 Allergies Allergy/AdvReac Type Severity Reaction Status Date / Time No Known Allergies Allergy Verified 08/03/24 06:16 Review of Systems Musc: Reports: joint pain [facility] ED PFSH: Medical History Arthritis of left hip Puncture wound of foot Injury of lower leg, right Dehydration Cellulitis Contusion of lower leg, right Family History Brother , 62 y/o due to blood clot Clotting disorder Mother Cancer ovarian Father Cancer leukemia Other CAD (coronary artery disease) Hypertension Denies family history of Diabetes Dementia Hyperlipidemia Psychiatric illness Chronic kidney disease (CKD) Anesthesia complication Bleeding disorder Lung disease Stroke Social History Smoking and tobacco/nicotine status: never used tobacco/nicotine Alcohol intake: current Alcohol intake frequency: holidays/special occasions only Substance/Drug Use: never Lives independently: Yes Current occupational status: employed 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 Examination of the left hip patient has limited internal/external rotation elicits pain he has minimal discomfort with flexion and extension. No pain with palpation over the greater trochanter. 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 Patient was given Toradol single hydrocodone here. Will discharge home with tramadol to use as needed continue other medications encouraged and follow-up with orthopedics or his primary care doctor regarding medications for pain control until the time of surgery. Medical Records I reviewed the patient's medical records. Lab Data Radiology Impressions Hip/Pelvis X-Ray 08/03/24 06:28 IMPRESSION: Stable short interval appearance of avascular necrosis and severe osteoarthritis of the left hip. All radiology interpretation(s) finalized by discharge Discharge Plan Discharge Patient Disposition: Home Clinical Impression: Arthritis of left hip Condition: Stable Prescriptions: New tramadol 50 mg tablet 50 mg PO Q8H PRN (Reason: pain) Qty: 20 0RF No Action (DME) arizone AFO See Rx Instructions .Route .MEDSUPPLY Qty: 1 0RF Rx Instructions: As directed made by the antony holley amlodipine 10 mg tablet See Rx Instructions .ROUTE .COMPLEX Qty: 90 1RF Dose Instruction: TAKE 1 TABLET BY MOUTH EVERY DAY Rx Instructions: TAKE 1 TABLET BY MOUTH EVERY DAY hydrochlorothiazide 25 mg tablet 25 mg PO DAILY Qty: 90 1RF meloxicam 15 mg tablet 15 mg PO DAILY Qty: 90 1RF meloxicam 15 mg tablet See Rx Instructions .ROUTE .COMPLEX Qty: 30 1RF Dose Instruction: TAKE 1 TABLET BY MOUTH EVERY DAY Rx Instructions: TAKE 1 TABLET BY MOUTH EVERY DAY tizanidine 4 mg capsule 4 mg PO BID PRN (Reason: muscle spasticity) Qty: 40 1RF zinc acetate 50 mg (zinc) Capsule 50 mg PO DAILY nwixxkzf-iih-rweox-vit K-lycop 400-20-300 mcg Tablet 1 tab PO DAILY meloxicam 7.5 mg tablet 7.5 mg PO .Twice daily Qty: 14 0RF prednisone 50 mg tablet 50 mg PO DAILY Qty: 5 0RF cyclobenzaprine 5 mg tablet 5 mg PO TID PRN (Reason: muscle spasm) Qty: 14 0RF Discharge Orders: Discharge ED (Routine); Ordered 08/03/24 Ordered By: Randell Fields Referrals: Fredy Wooten MD [Primary Care Provider] - Discharge Diet: Usual diet Discharge Activity: Increase activity as tolerated Patient Instructions: Opioid Safety, Pain Management Activity Restrictions/Additional Instructions: Thank you for choosing [facility] for your healthcare needs today. It is very important that you follow up as instructed or that you return to the Emergency Department should you have concerns or if your condition changes or worsens in any way. You were seen in the emergency room with complaints of right hip pain. Your exam is consistent with that previously noted by Dr. Truong in her office visits. At this time there is no sign of neurologic impingement and believe your pain is primarily coming from the arthritic changes in the left hip. Recommend use continue the medications you are previously given you can also use the tramadol you were prescribed today occasionally. Contact your primary care doctor or Dr. Truong's office for further guidance regarding pain control prior to your surgery. Print Language: Solomon Islander Coding Level of Care Code ED Technology Risk Intern for Jeanne Nagy
[2024-08-03 07:10] VITALS: BP 151/83; PULSE 81; O2SAT 98
== END 2024-08-03 07:10 | disposition home or self-care (01) ==
PROVIDERS: Emergency Provider Family Medicine; PCP Family Medicine
DX: M16.12 Unilateral primary osteoarthritis, left hip (principal)
CPT/HCPCS: 73502; 99283

== ENCOUNTER → 2024-08-19 10:22 | Outpatient (BNVA) | payer MEDICAID, SELFPAY | PROVIDERS: PCP Family Medicine; Visit Provider Family Medicine | DX: R30.0 Dysuria (principal); Z01.818 Encounter for other preprocedural examination | CPT/HCPCS: 81000 ==

== ENCOUNTER 2024-08-23 14:30 | Observation (INO) | payer MEDICAID, SELFPAY ==
[2024-08-23] VITALS (22 sets, daily range): BP systolic 126–161; BP diastolic 81–106; PULSE 43–94; RESP 16–18; TEMP 36.2–36.6; O2SAT 90–99; BMI 29.9
[2024-08-23] MEDS: sodium chloride 0.9% 1,000 ML 30 ML IV (09:43)
[2024-08-23] MEDS: acetaminophen 1,000 MG/100 ML PIGGYBACK 400 MG IV ×2 (09:46→16:05)
[2024-08-23] MEDS: CELEcoxib 200 mg Capsule 400 MG PO (09:48)
[2024-08-23] MEDS: gabapentin 300 mg Capsule PO (09:48)
[2024-08-23 09:51] LABS: Basophils # 0.1 10^3/uL (0.0-0.1); Eosinophils # 0.3 10^3/uL (0.0-0.8); Eosinophils % 4.1 %; Hematocrit 39.6 % (37-53); Lymphocytes # 1.9 10^3/uL (0.8-4.8); Lymphocytes % 31.8 %; Mean Corpuscular HGB Conc 34.8 g/dL (30-55); Mean Corpuscular Hemoglobin 31.2 pg (27-33); Mean Corpuscular Volume 89.6 fl (82-101); Mean Platelet Volume 9.3 fL (7.4-10.4); Monocytes # 0.6 10^3/uL (0.2-0.9); Monocytes % 9.8 %; Neutrophils # 3.23 10^3/uL (1.8-7.7); Nucleated Red Blood Cells % 0 %; Platelet Count 252 10^3/cmm (157-399); Red Blood Count 4.42 10^6/uL (3.85-5.65); Red Cell Distribution Width 13.2 % (12.1-15.1)
[2024-08-23 10:15] LABS: Anion Gap 14.6 (5-19); Blood Urea Nitrogen 29 mg/dL (8-23); Calcium 9.7 mg/dL (8.5-10.5); Carbon Dioxide 26 mmol/L (22-29); Chloride 102 mmol/L (98-107); Creatinine Clr Calc Pharmacy 60.4372; Glucose 107 mg/dL (65-115); Osmolality Calculated 294 mOsm/kg (285-295); Potassium 3.6 mmol/L (3.5-5.1); Sodium 139 mmol/L (136-145)
--- NOTE | 2024-08-23 10:22 | W.PM.OPSUD ---
Surgery/Procedure H&P Update DATE OF PROCEDURE: August 23, 2024 DATE H&P PERFORMED: 08/19/24 H&P UPDATE INFORMATION: I have reviewed H&P completed within last 30 days, I have examined patient prior to procedure, No changes to prior documentation and H&P is in [facility] [place] date indicated PREOP DIAGNOSIS: Severe degenerative osteoarthritis left hip PLANNED PROCEDURE: Operation Date: 08/23/24 11:30 Proposed Procedures p Total Hip Arthroplasty(Left) - Marilu Looney MD Related Problem List Diagnoses (1) Arthritis of left hip:
--- NOTE | 2024-08-23 10:35 | ANES.PREANE2 ---
Pre-Anesthetic Assessment Height/Weight: Height 1.75 m Weight 94.347 kg Temp Pulse Resp BP Pulse Ox O2 Del Method 97.6 F 86 18 161/106 97 Room Air 08/23/24 09:32 08/23/24 09:32 08/23/24 09:32 08/23/24 09:32 08/23/24 09:32 08/23/24 09:32 Preop Diagnosis: Severe degenerative osteoarthritis left hip Operation Date: 08/23/24 11:30 Proposed Procedures p Total Hip Arthroplasty(Left) - Marilu Looney MD Familial anesthetic complications: None Was Beta Umer taken within 24 hours: N/A Was Clonidine taken within 24 hours: N/A Last intake: Intake Last Liquid Date 08/23/24 Last Liquid Time 07:00 Last Solid Date 08/23/24 Last Solid Time 00:05 Social No alcohol and No tobacco Exam alert, oriented x 3, clear to auscultation bilaterally and regular rate & rhythm Airway Mallampati: Class II Dentition: false CV/HEM Hypertension Anesthetic Plan ASA status: 2 Anesthesia: General Other: patient declines spinal. prefers general Risk of > 500 ml blood loss (7ml/kg in children): No Medications/Allergies Home Medications ?Medication ?Instructions ?Recorded ?Confirmed ?Last Taken ?Type ujgackhp-xguatdbl-jviti acid 400 1 tab PO DAILY 11/30/22 08/23/24 08/22/24 History mcg-vit K 20 mcg-lycop 300 mcg tablet zinc acetate 50 mg (zinc) capsule 50 mg PO DAILY 11/30/22 08/23/24 Unknown History arizone AFO #1 ea 06/10/23 08/23/24 Unknown Rx hydrochlorothiazide 25 mg tablet 25 mg PO DAILY #90 tabs 03/10/24 08/23/24 Unknown Rx tizanidine 4 mg capsule 4 mg PO BID PRN muscle spasticity 07/18/24 08/23/24 Unknown Rx #40 caps meloxicam 7.5 mg tablet 7.5 mg PO .Twice daily #14 tabs 07/20/24 08/23/24 Unknown Rx tramadol 50 mg tablet 50 mg PO Q8H PRN pain #20 tabs 08/03/24 08/23/24 Unknown Rx amlodipine 10 mg tablet 10 mg PO DAILY 08/22/24 08/23/24 08/22/24 History Allergies Allergy/AdvReac Type Severity Reaction Status Date / Time No Known Allergies Allergy Verified 08/23/24 08:32 Current Medications Generic Name Dose Route Start Last Admin Trade Name Napoleon PRN Reason Stop Dose Admin Sodium Chloride 1,000 mls @ 30 mls/hr 08/23/24 09:30 08/23/24 09:43 Sodium Chloride 0.9% IV 08/24/24 09:29 30 mls/hr .Q24H VICKY Administration PFSH Anesthesia Medical History Arthritis of left hip Puncture wound of foot Injury of lower leg, right Dehydration Cellulitis Contusion of lower leg, right Family History Brother , 62 y/o due to blood clot Clotting disorder Mother Cancer ovarian Father Cancer leukemia Other CAD (coronary artery disease) Hypertension Denies family history of Diabetes Dementia Hyperlipidemia Psychiatric illness Chronic kidney disease (CKD) Anesthesia complication Bleeding disorder Lung disease Stroke Social History Smoking and tobacco/nicotine status: never used tobacco/nicotine Alcohol intake: current Alcohol intake frequency: holidays/special occasions only Substance/Drug Use: never Lives independently: Yes Current occupational status: employed 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
[2024-08-23] MEDS: ceFAZolin 2,000 mg SDV 2000 MG IVP ×2 (10:47→18:23)
[2024-08-23] MEDS: tranexamic acid 1,000 mg/10mL SDV 1000 MG IV (10:48)
[2024-08-23] MEDS: BUPivacaine liposome 13.3 mg/mL SDV 20 mL 266 MG INFILTRATI (11:38)
[2024-08-23] MEDS: BUPivacaine 0.5% INJ 30 mL 20 ML XX (11:38)
[2024-08-23] MEDS: ceFAZolin 1,000 mg SDV 1000 MG IRRIGATION (11:39)
[2024-08-23] MEDS: VANCOMYCIN ADD-Vantage 1,000 MG VIAL 1000 MG XX (11:39)
--- NOTE | 2024-08-23 14:02 | XRR_ITS ---
PROCEDURE INFORMATION: Exam: XR Pelvis Exam date and time: 08/23/2024 1:03 PM Age: 64 years old Clinical indication: Device placement; Other: Clifford; Prior surgery; Surgery date: Post-operative (0-2 days); Additional info: S/P clifford, low ap pelvis TECHNIQUE: Imaging protocol: Radiologic exam of the pelvis. Views: 1 or 2 view. COMPARISON: CR (PELVIS, ) 08/03/2024 6:32 AM FINDINGS: Bones/joints: Left hip arthroplasty noted in expected alignment. No acute fracture. Soft tissues: Unremarkable. XR/XR pelvis 1-2V* [id number] IMPRESSION: No acute findings.
--- NOTE | 2024-08-23 14:39 | PM.OP ---
Operative Report Date of procedure: August 23, 2024 Pre-op diagnosis: Severe degenerative osteoarthritis right hip with femoral head collapse Post-op diagnosis: Severe degenerative osteoarthritis right hip with femoral head collapse Post-op findings: Severe collapse and deformity to the femoral head with significant fibrous tissue within the acetabulum Procedure done: Right total hip arthroplasty Implants: [employer] total hip system with a size 54 mm by E alpha code Trident II Tritanium acetabular shell with an MDM liner size 42 mm inner diameter by E alpha code.? A size 6 Accolade II 127 degree neck angle hip stem with a size 28 mm x +4 mm femoral head and a caodaism MDM X3 insert size 28 mm x 42E Specimens removed/disposition: Femoral head, disposed of Pathology: None Surgeon: Marilu Looney MD Furnace Repairer Helper: Jocelynn Vazquez, nurse practitioner, who services were required for positioning, exposure, manipulation, and retraction. Estimated blood loss (mL): 350 IV fluids (mL): 1,200 Urine output (mL): 150 Complications: None Findings: It was stable at 90 degrees of flexion with 80 degrees of internal rotation and 20 degrees of adduction. It was also stable to external rotation Condition: stable Disposition: PACU Brief History: This 64-year-old gentleman presented to clinic with left hip pain. The pain radiated through his hip into his left knee, and at the time of last presentation to the office, he wished to discuss surgical intervention. Patient had difficulty with transferring, walking, sleeping, and other activities of daily living. After discussion in the office, the patient was scheduled for surgical intervention. He saw and was cleared by Dr. Torres for surgery. Risks and complications of the surgical procedure were discussed with him. Consents were signed and questions were answered. Procedure: Patient was brought to the operating theater.? He was transferred to the operating room table and subsequently administered a general anesthesia intubated, ASA 2. This was well-tolerated.? Following administration of adequate anesthesia, the patient was placed in full lateral position and held in position with a pegboard.? The patient's left lower extremity was then prepped and draped in usual fashion utilizing DuraPrep.? It was draped free.? Following prepping and draping, a surgical pause was performed.? At the time of surgical pause, we identified the site and side of surgery.? We also identified the patient and preoperative surgical markings.?The patient's operative leg was compared to the opposite leg as a length comparison.? Confirmation was made of equipment availability.? Additionally, the patient's preoperative IV antibiotic, Ancef 2 g, and TXA administration was confirmed as well.? X-rays were also reviewed. Following the surgical pause, an incision was made centering over the patient's greater trochanter continuing proximally and distally as necessary to allow access to the hip joint.? Dissection continued through skin and soft tissues using a scalpel, and hemostasis was obtained using electrocautery. The tensor fascia ketan was identified and incised longitudinally.? Sciatic nerve was identified and protected throughout the surgical procedure.? A Charnley U retractor was placed after the tensor fascia ketan had been incised longitudinally, and the sciatic nerve had been identified.? Muscles around the hip were quite tight. Positioning of the hip for the surgical procedure was noted to be quite difficult. The hip was internally rotated, and the piriformis muscle was identified and tagged. Piriformis muscle along with the remaining short external rotators were then incised from the posterior aspect of the hip joint.? These were retracted posteriorly.? The capsule was entered in a T-type fashion with the edges being tagged, and subsequently, the hip was dislocated. The labrum, which which was degenerative, torn, and with significant synovitis, was excised with further excision accomplished once the femoral head was removed.? Following hip dislocation, a femoral neck osteotomy was accomplished in the appropriate position.??Femoral head was noted to be very deformed with significant femoral head collapse. There was essentially no normal anatomy left to the femoral head. We then evaluated the acetabulum. The femur was retracted anteriorly.? Soft tissues were retracted, and the labrum was further removed. We then began reaming.? Once the femoral head was removed, there was noted to be significant loss of cartilage within the acetabulum. In fact, there was no normal femoral head to measure for sizing. We reamed to a size 53 to allow for a size 54 acetabular shell. The size 54 mm acetabular shell was impacted into position without difficulty. It was noted to seat nicely.? The MDM liner was then impacted into position with care being taken to assure it seated appropriately. It was noted that the acetabulum matched the bony anatomy following osteophyte removal.? The cup was noted to seat nicely and had good fixation upon impact. Attention was directed to the proximal femur.? The proximal femur was lifted out of the wound.? A canal finder was passed after the box chisel.? The reamer was used to lateralize.? We then began broaching. We broached sequentially and had excellent fit and fill with the size 6 Accolade II broach. Trial was initially accomplished with a +0 mm offset femoral head. The hip was again reduced and placed through range of motion. With this construct of a size 6 broach and a +0mm offset femoral head, it was felt that we could obtained more stability by increasing to a +4 mm femoral head. Once the +4 femoral head was placed in position, we had the above-noted stabilities. Leg lengths were felt to be equal. With the final construct as noted, we had the above-noted stabilities and appropriate leg length. Therefore, trial components were removed after the hip was dislocated. The size 6 Accolade II 127 degree neck angle stem was impacted into position without difficulty and onto this was placed a +4 mm x 28 mm femoral head which had been assembled into the MDM insert size 42E.? With a +4 mm femoral head, we had the above-noted stability.? The stem was noted to seat nicely prior to placement of the femoral head.? The wound was copiously irrigated with 20 mL of Betadine and 500 mL of normal saline mixed together.? Subsequently, we suctioned this out and irrigated the wound copiously with lactated Ringer's.? At this time, with all components in appropriate position, the hip was reduced.? Following reduction of the prosthesis once again, we confirmed the stability of the hip.? Leg lengths were also felt to be satisfactory. Exparel was injected. Being satisfied with the prosthesis, attention was directed to closure.? Closure was accomplished with 0 Vicryl in the capsular tissues.? Piriformis was reattached with 0 Vicryl as well.? Tensor fascia ketan was closed with 0 Vicryl in an interrupted fashion.? The subcutaneous tissues were closed with 2-0 Monocryl STRATAFIX.? Vancomycin powder and a Gelfoam thrombin mixture was placed into the wound as well.? The skin was closed with a running 3-0 Monocryl strata fix followed by Dermabond Prinmichael and OpSite. The patient was placed in an abduction pillow.? Patient was transferred off the operative bed and was brought to the recovery room in a satisfactory condition. Related Problem List Diagnoses (1) Arthritis of left hip:
--- NOTE | 2024-08-23 15:10 | ANE.PACU2 ---
Inpatient post-anesthesia follow up: Airway intact: Yes Vital signs: Temperature 97.6 F Pulse Rate 88 Respiratory Rate 18 Blood Pressure 145/82 Pulse Oximetry 97 Oxygen Delivery Me thod Room Air Oxygen Flow Rate 2 Fraction of Inspir ed Oxygen Hydration adequate: Yes Nausea and vomiting: No Pain level: 1 Mental status: Baseline
[2024-08-23] MEDS: oxyCODONE 5 mg IR Tab/Cap PO (15:58)
[2024-08-23] MEDS: meloxicam 7.5 mg tablet PO (17:40)
[2024-08-23] MEDS: calcium carbonate 500 mg Chew Tablet 1000 MG PO (17:40)
[2024-08-23] MEDS: chlorhexidine gluconate 0.12% Btl 473 mL 30 ML MUCOUS MEM ×2 (17:40→22:47)
[2024-08-23] MEDS: iron polysaccharide complex 150 mg Capsule PO (17:40)
[2024-08-23] MEDS: sennosides-docusate Tablet 2 TAB PO (17:40)
[2024-08-23] MEDS: mupirocin oint 22 gm 1 APPLIC NASAL (17:40)
[2024-08-23] MEDS: tranexamic acid 1,000 MG/100 ML PREMIX 600 MG IV (18:31)
[2024-08-24] VITALS (7 sets, daily range): BP systolic 145–157; BP diastolic 76–86; PULSE 73–88; RESP 17–18; TEMP 36.3–36.5; O2SAT 93–97; BMI 29.8
[2024-08-24] MEDS: acetaminophen 1,000 MG/100 ML PIGGYBACK 400 MG IV ×2 (01:56→08:44)
[2024-08-24] MEDS: ceFAZolin 2,000 mg SDV 2000 MG IVP ×2 (03:34→11:11)
[2024-08-24 05:05] LABS: Basophils % 0.3 %; Eosinophils % 0.2 %; Hematocrit 34.6 % (37-53); Lymphocytes # 1.4 10^3/uL (0.8-4.8); Lymphocytes % 16.3 %; Mean Corpuscular HGB Conc 33.2 g/dL (30-55); Mean Corpuscular Volume 90.3 fl (82-101); Mean Platelet Volume 9.5 fL (7.4-10.4); Monocytes # 0.9 10^3/uL (0.2-0.9); Monocytes % 10.9 %; Neutrophils # 6.24 10^3/uL (1.8-7.7); Neutrophils % 72.1 %; Nucleated Red Blood Cells % 0 %; Platelet Count 223 10^3/cmm (157-399); Red Blood Count 3.83 10^6/uL (3.85-5.65); Red Cell Distribution Width 13.3 % (12.1-15.1); White Blood Count 8.66 10^3/uL (3.29-11.43)
[2024-08-24 05:28] LABS: Anion Gap 12.8 (5-19); Blood Urea Nitrogen 30 mg/dL (8-23); Calcium 8.9 mg/dL (8.5-10.5); Carbon Dioxide 27 mmol/L (22-29); Chloride 102 mmol/L (98-107); Creatinine Clr Calc Pharmacy 44.0187; Glomerular Filtration Rate 35.9 mL/min (90-130); Glucose 126 mg/dL (65-115); Osmolality Calculated 294 mOsm/kg (285-295); Potassium 3.8 mmol/L (3.5-5.1); Sodium 138 mmol/L (136-145)
[2024-08-24] MEDS: aspirin 325 mg EC Tablet PO (08:42)
[2024-08-24] MEDS: meloxicam 7.5 mg tablet PO (08:42)
[2024-08-24] MEDS: oxyCODONE 5 mg IR Tab/Cap PO (08:42)
[2024-08-24] MEDS: cholecalciferol (vitamin D3) 1,000 unit Tablet 1000 UNIT PO (08:42)
[2024-08-24] MEDS: calcium carbonate 500 mg Chew Tablet 1000 MG PO (08:42)
[2024-08-24] MEDS: multivitamin therapeutic Tablet 1 TAB PO (08:42)
[2024-08-24] MEDS: chlorhexidine gluconate 0.12% Btl 473 mL 30 ML MUCOUS MEM (08:43)
[2024-08-24] MEDS: hydroCHLOROthiazide 25 mg Tablet PO (08:43)
[2024-08-24] MEDS: sennosides-docusate Tablet 2 TAB PO (08:43)
[2024-08-24] MEDS: amlodipine 10 mg Tablet PO (08:43)
[2024-08-24] MEDS: mupirocin oint 22 gm 1 APPLIC NASAL (08:43)
[2024-08-24] MEDS: iron polysaccharide complex 150 mg Capsule PO (08:43)
--- NOTE | 2024-08-24 09:18 | PC.CHAP ---
Pastoral Care Encounter/Spiritual Assessment Type of Contact [] Declined formula maker visit [] Patient/Family/Request visit [] Outpatient visit [] Follow-up visit [] Physician referral [] Code/Alert [x] Routine visit [] Staff referral [] Actively dying [] Patient sleeping [] Family support [] [] Out of room [] Palliative care [] [] Receiving care in room [] Pre-surgical visit [] Trauma [] Long length of stay [] ICU visit [] Other: Relational/Emotional Strength [x] Patient feels connected with others/family/visitors/staff [] Distress [] Loneliness/isolation [] Abandonment Spirituality of Patient [x] Person of Jenny [x] Attends Buddhism of their Jenny [x] Believes in Prayer [x] Reads Bible or Rastafari materials [] There are Spiritual issues to be addressed Tin Flopper Interventions [x] Prayer [x] Active listening [] Non-anxious presence [x] Spiritual/emotional support [] Crisis/trauma care [] Spiritual counseling [] Bereavement support [] Provided bereavement packet [] Provided Bible/devotional materials [] Provided toy/stuffed animal, coloring book to patient or family member [] Provided Communion [] Anointing/[place] [] Salvation [x] Completed spiritual assessment [] Other: Impact on Illness or Injury [] Angry [] Fearful [] Anxious [] Often cries [] Exhaustion [] Unable to work [] Unable to attend congregation [] Unable to walk/stand [] Unable to read [] Unable to drive [] Unable to eat/drink [] Unable to sleep [] Unable to be with family [] Patient intubated [] Other: Summary Time spent with patient 10 min
--- NOTE | 2024-08-24 13:38 | P.DS_ITS ---
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 A size 6 Accolade II 127 degree neck angle hip stem with a size 28 mm x +4 mm femoral head and a sabianism MDM X3 insert size 28 mm x 42E Reason for Visit Reason for Visit: M16.12 Brief History: This 64-year-old gentleman presented to clinic with left hip pain. The pain radiated through his hip into his left knee, and at the time of last presentation to the office, he wished to discuss surgical intervention. Patient had difficulty with transferring, walking, sleeping, and other activities of daily living. After discussion in the office, the patient was scheduled for surgical intervention. He saw and was cleared by Dr. Torres for surgery. Risks and complications of the surgical procedure were discussed with him. Consents were signed and questions were answered. Hospital Course Hospital Course This 64-year-old gentleman was admitted under observation status for same-day surgery for left total hip arthroplasty. Postoperatively, he participated with physical therapy and did well. He had no postoperative complications. He worked well with physical therapy. There was no evidence of DVT. He was felt safe for discharge to home. Therefore, we confirmed with the patient that he understood postoperative instructions for care following his hip arthroplasty as his insurance would not cover in-home or outpatient physical therapy. Physical Exam Const: COMMON NORMALS: no acute distress, average body habitus, patient oriented x3 and alert GENERAL APPEARANCE: cooperative and comfortable ORIENTATION/CONSCIOUSNESS: Yes awake HENMT: COMMON NORMALS: normocephalic and atraumatic HEAD & SCALP: normocephalic and atraumatic Eye: GENERAL EYE: appearance normal, both eyes and all related structures Chest: COMMONS NORMALS: normal inspection of the chest Resp: COMMON NORMALS: normal respiratory effort EFFORT & INSPECTION: Yes able to speak in complete sentences and Yes symmetric chest movement Extremity: LEFT LOWER EXTREMITY: Yes hip joint (Patient is status post left total hip arthroplasty) Left hip: Yes inspection (Dressing is dry and intact), Yes ROM (Not evaluated) and Yes neurovascular exam (Intact with no evidence of DVT) Neuro: COMMON NORMALS: patient oriented x3 SENSORIUM/ORIENTATION: Yes alert Psych: COMMON NORMALS: mental status grossly normal APPEARANCE: Yes grossly normal ATTITUDE: Yes calm and Yes engaged ATTENTION/CONCENTRATION: Yes attention grossly intact Skin: COMMON NORMALS: no rashes or lesions noted GENERAL SKIN EXAM: no rashes or lesions noted Urinary Catheter Management: Phillips: Cath Placed During This Visit: yes Reason for Continuing Indwelling Catheter: Required Immobilization for Trauma or Surgery or Anesthesia Urinary Catheter Date of Insertion: 08/23/24 Urinary Catheter Time of Insertion: 11:05 Discharge Data Studies Completed and Pending Completed Studies During Hospitalization Category Date Time Status XR pelvis 1-2V* [id number] Routine Exams 08/23/24 14:02 Completed Radiology Impressions Pelvis X-Ray 08/23/24 14:02 IMPRESSION: No acute findings. Laboratory Results WBC 8.66 10^3/uL (3.29-11.43) 08/24/24 04:45 RBC 3.83 10^6/uL (3.85-5.65) L 08/24/24 04:45 Hgb 11.50 g/dL (11.27-16.99) 08/24/24 04:45 Hct 34.6 % (37-53) L 08/24/24 04:45 MCV 90.3 fl (82-101) 08/24/24 04:45 MCH 30.0 pg (27-33) 08/24/24 04:45 MCHC 33.2 g/dL (30-55) 08/24/24 04:45 RDW 13.3 % (12.1-15.1) 08/24/24 04:45 Plt Count 223 10^3/cmm (157-399) 08/24/24 04:45 MPV 9.5 fL (7.4-10.4) 08/24/24 04:45 Neut % (Auto) 72.1 % 08/24/24 04:45 Lymph % (Auto) 16.3 % 08/24/24 04:45 [place] % (Auto) 10.9 % 08/24/24 04:45 Eos % (Auto) 0.2 % 08/24/24 04:45 Baso % (Auto) 0.3 % 08/24/24 04:45 Neut # (Auto) 6.24 10^3/uL (1.8-7.7) 08/24/24 04:45 Lymph # (Auto) 1.4 10^3/uL (0.8-4.8) 08/24/24 04:45 [place] # (Auto) 0.9 10^3/uL (0.2-0.9) 08/24/24 04:45 Eos # (Auto) 0.0 10^3/uL (0.0-0.8) 08/24/24 04:45 Baso # (Auto) 0.0 10^3/uL (0.0-0.1) 08/24/24 04:45 Nucleated RBC % (auto) 0 % 08/24/24 04:45 Nucleated RBCs # 0.0 /100WBC 08/24/24 04:45 Sodium 138 mmol/L (136-145) 08/24/24 04:45 Potassium 3.8 mmol/L (3.5-5.1) 08/24/24 04:45 Chloride 102 mmol/L (98-107) 08/24/24 04:45 Carbon Dioxide 27 mmol/L (22-29) 08/24/24 04:45 Anion Gap 12.8 (5-19) 08/24/24 04:45 BUN 30 mg/dL (8-23) H 08/24/24 04:45 Creatinine 1.9 mg/dL (0.7-1.2) H 08/24/24 04:45 GFR Calculation 35.9 mL/min (90-130) L 08/24/24 04:45 Glucose 126 mg/dL (65-115) H 08/24/24 04:45 Calculated Osmolality 294 mOsm/kg (285-295) 08/24/24 04:45 Calcium 8.9 mg/dL (8.5-10.5) 08/24/24 04:45 Vitals Last Vital Signs Temp 97.4 F L 08/24/24 13:35 Pulse 73 08/24/24 13:35 Resp 18 08/24/24 13:35 BP 157/82 08/24/24 13:35 Pulse Ox 97 08/24/24 13:35 O2 Del Method Room Air 08/24/24 12:00 O2 Flow Rate 2 08/23/24 15:06 Discharge Plan Discharge Patient Disposition: Home Condition: Stable Prescriptions: New acetaminophen 500 mg Tablet 1,000 mg PO Q8H 15 Days Qty: 90 0RF aspirin 325 mg Tablet,Delayed Release (Dr/Ec) 325 mg PO DAILY 30 Days Qty: 30 0RF oxycodone 5 mg Tablet 5 mg PO Q4H PRN (Reason: Moderate To Severe Pain) 7 Days Qty: 40 0RF Continued (DME) arizone AFO See Rx Instructions .Route .MEDSUPPLY Qty: 1 0RF Rx Instructions: As directed made by the antony holley hydrochlorothiazide 25 mg tablet 25 mg PO DAILY Qty: 90 1RF tizanidine 4 mg capsule 4 mg PO BID PRN (Reason: muscle spasticity) Qty: 40 1RF zinc acetate 50 mg (zinc) Capsule 50 mg PO DAILY ikhjikrx-txm-wueoj-vit K-lycop 400-20-300 mcg Tablet 1 tab PO DAILY meloxicam 7.5 mg tablet 7.5 mg PO .Twice daily Qty: 14 0RF tramadol 50 mg tablet 50 mg PO Q8H PRN (Reason: pain) Qty: 20 0RF amlodipine 10 mg tablet 10 mg PO DAILY Rx Instructions: TAKE 1 TABLET BY MOUTH EVERY DAY Discharge Orders: Discharge Order (Routine); Ordered 08/24/24 Ordered By: Marilu Looney Referrals: Marilu Looney MD [Physician] - 09/05/24 3:15 pm Discharge Diet: Advance as tolerated and Usual diet Discharge Activity: Limit activity as instructed, Use walker/crutches as instructed and As per PT/OT instructions Patient Instructions: Aspirin (By mouth), Oxycodone, Rapid Release (By mouth), Total Hip Replacement (GEN) Activity Restrictions/Additional Instructions: Posterior hip precautions as you were taught while in hospital. You may shower, and get your dressing wet but do not submerge your hip in water. If the dressing lifts up and begins to leak, please remove it. Weightbearing as tolerated. PT will and instruct you with postoperative rehabilitation here. Discharge Attestations Time Spent in Discharge Care*: greater than 30 min Specific Discharge Activities: educating patient, documenting/other paperwork and evaluating patient/reviewing data Quality Metrics Clinical Quality Measures [ No reported AMI, CVA or VTE this stay] Coding Level of Care Code Acute Code for Chg Fwd Diagnoses Arthritis of left hip M16.12 History of total left hip arthroplasty Z96.642
== END 2024-08-24 13:51 | disposition home or self-care (01) ==
LOC: MEDSURG 14:30
PROVIDERS: Anesthesiology; Admitting Provider Specialist; PCP Family Medicine; Visit Provider Specialist
PROC: (CPT 27130; principal; 2024-08-23 11:20)
DX: M16.12 Unilateral primary osteoarthritis, left hip (principal); M17.12 Unilateral primary osteoarthritis, left knee; I10 Essential (primary) hypertension; Z79.899 Other long term (current) drug therapy
CPT/HCPCS: 27130; 36415; 51702; 72170; 80048; 85025; 97110; 97116; 97161; 97165; A4216; C1776; C9290; G0378; J0131; J0690; J1171; J2250; J2704; J3010; J3370; J3490; J7030

== ENCOUNTER → 2024-09-05 15:41 | Outpatient (BNVA) | payer MEDICAID, SELFPAY | PROVIDERS: PCP Family Medicine; Visit Provider Specialist | DX: Z96.642 Presence of left artificial hip joint (principal) | CPT/HCPCS: 73502 ==

== ENCOUNTER 2024-09-06 02:40 | Emergency (ER) | payer MEDICAID, SELFPAY ==
[2024-09-06 02:45] VITALS: BP 151/91; PULSE 103; RESP 18; TEMP 36.8; O2SAT 98
--- NOTE | 2024-09-06 02:53 | ECG_ITS ---
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 Measurements Intervals [place] Rate: 89 P: 26 AL: 184 QRS: 3 QRSD: 157 T: 8 QT: 398 QTc: 484 Interpretive Statements SINUS RHYTHM RIGHT BUNDLE BRANCH BLOCK [120+ ms QRS DURATION, UPRIGHT V1, 40+ ms S IN I/aVL/V4/V5/V6] No previous ECG available for comparison Electronically Signed On 09-07-2024 12:36:28 CDT by Robina Pulido M.D. [email or web address]
--- NOTE | 2024-09-06 02:53 | XRR_ITS ---
PROCEDURE INFORMATION: Exam: XR Chest Exam date and time: 09/06/2024 3:08 AM Age: 64 years old Clinical indication: Other: Swelling in legs; Additional info: Edema TECHNIQUE: Imaging protocol: Radiologic exam of the chest. Views: 1 view. COMPARISON: CT angio chest PE prot [id number] 02/05/2021 10:34 PM FINDINGS: Lungs: Minimal bibasilar atelectasis/scar. No consolidation. Pleural spaces: Unremarkable. No pleural effusion. No pneumothorax. Heart/Mediastinum: Unremarkable. No cardiomegaly. Bones/joints: Unremarkable. XR/XR chest 1V portable [id number] IMPRESSION: Minimal bibasilar atelectasis/scar.
--- NOTE | 2024-09-06 03:05 | W.ED.EXTPRO ---
HPI - Extremity Problem General: Chief complaint: Extremity Problem,Nontraumatic Stated complaint: Both feet Numb Time Seen by Provider: 09/06/24 02:47 History of Present Illness: 64-year-old man with a history of chronic lower extremity issues and recent hip replacement surgery who presents the emergency room today with foot pain and numbness. He said he had side of the PNO for a long time and when he got up he felt like both of his feet were fairly numb and this is improved some now. He also has had some worsening swelling in his right ankle which has been bothering him more lately. Related Data Home Medications ?Medication ?Instructions ?Recorded ?Confirmed zzzalscw-uibpqven-khorl acid 400 1 tab PO DAILY 11/30/22 09/05/24 mcg-vit K 20 mcg-lycop 300 mcg tablet zinc acetate 50 mg (zinc) capsule 50 mg PO DAILY 11/30/22 09/05/24 amlodipine 10 mg tablet 10 mg PO DAILY 08/22/24 09/05/24 Previous Rx's ?Medication ?Instructions ?Recorded arizone AFO #1 ea 06/10/23 hydrochlorothiazide 25 mg tablet 25 mg PO DAILY #90 tabs 03/10/24 tizanidine 4 mg capsule 4 mg PO BID PRN muscle spasticity 07/18/24 #40 caps meloxicam 7.5 mg tablet 7.5 mg PO .Twice daily #14 tabs 07/20/24 tramadol 50 mg tablet 50 mg PO Q8H PRN pain #20 tabs 08/03/24 acetaminophen 500 mg tablet 1,000 mg (2 x 500 mg) PO Q8H 15 08/24/24 days #90 tabs aspirin 325 mg tablet,delayed 325 mg PO DAILY 30 days #30 tabs 08/24/24 release Allergies Allergy/AdvReac Type Severity Reaction Status Date / Time No Known Allergies Allergy Verified 09/06/24 02:50 Review of Systems Narrative: Constitutional symptoms: Negative except as documented in HPI. Skin symptoms: Negative except as documented in HPI. Eye symptoms: Negative except as documented in HPI. ENMT symptoms: Negative except as documented in HPI. Respiratory symptoms: Negative except as documented in HPI. Cardiovascular symptoms: Negative except as documented in HPI. Gastrointestinal symptoms: Negative except as documented in HPI. Genitourinary symptoms: Negative except as documented in HPI. Musculoskeletal symptoms: Negative except as documented in HPI. Neurologic symptoms: Negative except as documented in HPI. Psychiatric symptoms: Negative except as documented in HPI. Endocrine symptoms: Negative except as documented in HPI. [facility] ED PFSH: Medical History Arthritis of left hip Puncture wound of foot Injury of lower leg, right Dehydration Cellulitis Contusion of lower leg, right Family History Brother , 62 y/o due to blood clot Clotting disorder Mother Cancer ovarian Father Cancer leukemia Other CAD (coronary artery disease) Hypertension Denies family history of Diabetes Dementia Hyperlipidemia Psychiatric illness Chronic kidney disease (CKD) Anesthesia complication Bleeding disorder Lung disease Stroke Social History Smoking and tobacco/nicotine status: never used tobacco/nicotine Alcohol intake: current Alcohol intake frequency: holidays/special occasions only Substance/Drug Use: never Lives independently: Yes Current occupational status: employed 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 Skin: Warm, dry. Head: Normocephalic, atraumatic. Neck: Supple, trachea midline. Eye: Extraocular movements are intact. Ears, nose, mouth and throat: mucosa moist. Cardiovascular: Regular, Normal peripheral perfusion. Respiratory: Lungs are clear to auscultation, respirations are non-labored, breath sounds are equal, Symmetrical chest wall expansion. Gastrointestinal: Soft, Nontender, Non distended Musculoskeletal: Normal ROM, no deformity. He does have some swelling in his right ankle. Neurological: Alert and oriented, No focal neurological deficit observed. Psychiatric: Cooperative, appropriate mood & affect. Course Vital Signs: Vital signs: Vital Signs Temperature 98.2 F 09/06/24 02:45 Pulse Rate 103 H 09/06/24 02:45 Respiratory Rate 18 09/06/24 02:45 Blood Pressure 151/91 09/06/24 02:45 Pulse Oximetry 98 09/06/24 02:45 Oxygen Delivery Me thod Room Air 09/06/24 02:45 MDM - Extremity (Nontraumatic) Medical Decision Making Chest x-ray: No acute process. No infiltrate. No pneumothorax. Films were interpreted by myself the emergency room provider and pending final radiology review. Lab work: Lab work was reviewed interpreted by myself emergency room physician. No leukocytosis. No new anemia. Mean and creatinine are stable at his baseline at 31 and 2. proBNP is less than previous and not significant. No signs of heart failure on chest x-ray or lab work. Assessment and plan: Edema ? 40 mg p.o. Lasix in the emergency room. Advise he follow with his primary provider. - Discharged home - Discussed plan with patient. Answered any questions. - Evaluation and treatment of this problem were appropriate in the emergency setting. Lab Data 09/06/24 03:20 09/06/24 03:03 Laboratory Results WBC 6.75 10^3/uL (3.29-11.43) 09/06/24 03:20 Corrected WBC Cancelled 09/06/24 03:03 RBC 3.58 10^6/uL (3.85-5.65) L 09/06/24 03:20 Hgb 10.70 g/dL (11.27-16.99) L 09/06/24 03:20 Hct 32.3 % (37-53) L 09/06/24 03:20 MCV 90.2 fl (82-101) 09/06/24 03:20 MCH 29.9 pg (27-33) 09/06/24 03:20 MCHC 33.1 g/dL (30-55) 09/06/24 03:20 RDW 13.1 % (12.1-15.1) 09/06/24 03:20 Plt Count 284 10^3/cmm (157-399) 09/06/24 03:20 MPV 8.9 fL (7.4-10.4) 09/06/24 03:20 Gran % Cancelled 09/06/24 03:03 Neut % (Auto) 61.1 % 09/06/24 03:20 Lymph % (Auto) 25.8 % 09/06/24 03:20 [place] % (Auto) 7.9 % 09/06/24 03:20 Eos % (Auto) 4.0 % 09/06/24 03:20 Baso % (Auto) 0.9 % 09/06/24 03:20 Neut # (Auto) 4.13 10^3/uL (1.8-7.7) 09/06/24 03:20 Lymph # (Auto) 1.7 10^3/uL (0.8-4.8) 09/06/24 03:20 [place] # (Auto) 0.5 10^3/uL (0.2-0.9) 09/06/24 03:20 Eos # (Auto) 0.3 10^3/uL (0.0-0.8) 09/06/24 03:20 Baso # (Auto) 0.1 10^3/uL (0.0-0.1) 09/06/24 03:20 Absolute Gran (auto) Cancelled 09/06/24 03:03 Nucleated RBC % (auto) 0 % 09/06/24 03:20 Nucleated RBCs # 0.0 /100WBC 09/06/24 03:20 Sodium 137 mmol/L (136-145) 09/06/24 03:03 Potassium 3.3 mmol/L (3.5-5.1) L 09/06/24 03:03 Chloride 101 mmol/L (98-107) 09/06/24 03:03 Carbon Dioxide 25 mmol/L (22-29) 09/06/24 03:03 Anion Gap 14.3 (5-19) 09/06/24 03:03 BUN 31 mg/dL (8-23) H 09/06/24 03:03 Creatinine 2.0 mg/dL (0.7-1.2) H 09/06/24 03:03 GFR Calculation 33.8 mL/min (90-130) L 09/06/24 03:03 Glucose 106 mg/dL (65-115) 09/06/24 03:03 Calculated Osmolality 291 mOsm/kg (285-295) 09/06/24 03:03 Calcium 9.3 mg/dL (8.5-10.5) 09/06/24 03:03 Total Bilirubin 0.2 mg/dL (0.15-1.2) 09/06/24 03:03 AST 21 U/L (0-40) 09/06/24 03:03 ALT 24 U/L (0-41) 09/06/24 03:03 Alkaline Phosphatase 115 U/L (40-130) 09/06/24 03:03 NT-Pro-B Natriuret Pep 138 pg/mL (0-125) H 09/06/24 03:03 Total Protein 7.3 g/dL (6.6-8.7) 09/06/24 03:03 Albumin 4.0 g/dL (3.5-5.2) 09/06/24 03:03 Globulin 3.3 g/dL (1.3-4.6) 09/06/24 03:03 XR interpretation done by ED provider, pending radiology final review Discharge Plan Discharge Patient Disposition: Home Clinical Impression: Pedal edema, Chronic kidney disease Condition: Stable Prescriptions: No Action (DME) arizone AFO See Rx Instructions .Route .MEDSUPPLY Qty: 1 0RF Rx Instructions: As directed made by the antony holley hydrochlorothiazide 25 mg tablet 25 mg PO DAILY Qty: 90 1RF tizanidine 4 mg capsule 4 mg PO BID PRN (Reason: muscle spasticity) Qty: 40 1RF zinc acetate 50 mg (zinc) Capsule 50 mg PO DAILY rhcljevz-qxy-jgjks-vit K-lycop 400-20-300 mcg Tablet 1 tab PO DAILY meloxicam 7.5 mg tablet 7.5 mg PO .Twice daily Qty: 14 0RF tramadol 50 mg tablet 50 mg PO Q8H PRN (Reason: pain) Qty: 20 0RF amlodipine 10 mg tablet 10 mg PO DAILY Rx Instructions: TAKE 1 TABLET BY MOUTH EVERY DAY acetaminophen 500 mg Tablet 1,000 mg PO Q8H 15 Days Qty: 90 0RF aspirin 325 mg Tablet,Delayed Release (Dr/Ec) 325 mg PO DAILY 30 Days Qty: 30 0RF Discharge Orders: Discharge ED (Routine); Ordered 09/06/24 Ordered By: Luana Pearce Referrals: Fredy Wooten MD [Primary Care Provider] - Discharge Diet: Usual diet Discharge Activity: Increase activity as tolerated Patient Instructions: Opioid Safety, Pain Management Activity Restrictions/Additional Instructions: Thank you for choosing [facility] for your healthcare needs today. Please realize this is an emergency room and that we are providing you with a medical screening exam and this may not be complete and all inclusive of all the testing and or work up that you may need to determine your ailment or severity of your illness. You have been screened and evaluated and felt safe for discharge. Health conditions do change or evolve sometimes and as such it is important that you follow up with your Primary Doctor to be re checked, 3-5 days is a general good time frame for follow up. You are always welcome to return to the ED for re assessment if your symptoms are worsening or you have new concerns Print Language: Polish Coding Level of Care Code ED [employer] for Jeanne Nagy
[2024-09-06] MEDS: FUROsemide 40 mg Tablet PO (03:06)
[2024-09-06 03:24] LABS: Basophils # 0.1 10^3/uL (0.0-0.1); Basophils % 0.9 %; Eosinophils # 0.3 10^3/uL (0.0-0.8); Hematocrit 32.3 % (37-53); Lymphocytes # 1.7 10^3/uL (0.8-4.8); Lymphocytes % 25.8 %; Mean Corpuscular HGB Conc 33.1 g/dL (30-55); Mean Corpuscular Hemoglobin 29.9 pg (27-33); Mean Corpuscular Volume 90.2 fl (82-101); Mean Platelet Volume 8.9 fL (7.4-10.4); Monocytes # 0.5 10^3/uL (0.2-0.9); Monocytes % 7.9 %; Neutrophils # 4.13 10^3/uL (1.8-7.7); Neutrophils % 61.1 %; Nucleated Red Blood Cells % 0 %; Platelet Count 284 10^3/cmm (157-399); Red Blood Count 3.58 10^6/uL (3.85-5.65); Red Cell Distribution Width 13.1 % (12.1-15.1); White Blood Count 6.75 10^3/uL (3.29-11.43)
[2024-09-06 03:42] LABS: Alanine Aminotransferase 24 U/L (0-41); Alkaline Phosphatase 115 U/L (40-130); Anion Gap 14.3 (5-19); Aspartate Amino Transferase 21 U/L (0-40); Blood Urea Nitrogen 31 mg/dL (8-23); Calcium 9.3 mg/dL (8.5-10.5); Carbon Dioxide 25 mmol/L (22-29); Chloride 101 mmol/L (98-107); Globulin 3.3 g/dL (1.3-4.6); Glomerular Filtration Rate 33.8 mL/min (90-130); Glucose 106 mg/dL (65-115); NT Pro B Type Natriuretic Pept 138 pg/mL (0-125); Osmolality Calculated 291 mOsm/kg (285-295); Potassium 3.3 mmol/L (3.5-5.1); Sodium 137 mmol/L (136-145); Total Bilirubin 0.2 mg/dL (0.15-1.2); Total Protein 7.3 g/dL (6.6-8.7)
[2024-09-06 03:58] VITALS: BP 151/91; PULSE 61; O2SAT 97
== END 2024-09-06 03:59 | disposition home or self-care (01) ==
PROVIDERS: Emergency Provider Emergency Medicine; PCP Family Medicine
DX: R60.9 Edema, unspecified (principal); N18.9 Chronic kidney disease, unspecified; Z79.82 Long term (current) use of aspirin
CPT/HCPCS: 36415; 71045; 80053; 83880; 85025; 93005; 99285; J9999

== ENCOUNTER → 2024-11-23 07:43 | Outpatient (BNVA) | payer MEDICAID, SELFPAY | PROVIDERS: PCP Family Medicine; Visit Provider Podiatrist Foot & Ankle Surgery | DX: M25.571 Pain in right ankle and joints of right foot (principal); M19.071 Primary osteoarthritis, right ankle and foot; G89.29 Other chronic pain | CPT/HCPCS: 73610 ==

== ENCOUNTER 2024-12-09 09:05 | Outpatient (CLI) | payer MEDICAID, SELFPAY ==
--- NOTE | 2024-12-09 13:45 | CTR_ITS ---
PROCEDURE INFORMATION: Exam: CT Right Lower Extremity Without Contrast, Ankle Exam date and time: 12/09/2024 9:35 AM Age: 64 years old Clinical indication: Swelling or effusion of joint; RT ankle swelling. PT states 1 year ago he had an injury and pain and swelling has gotten worse since. ; Additional info: Pre surgical planning TECHNIQUE: Imaging protocol: CT of the right lower extremity without contrast was performed. Exam focused on the ankle. Radiation optimization: All CT scans at this facility use at least one of these dose optimization techniques: automated exposure control; mA and/or kV adjustment per patient size (includes targeted exams where dose is matched to clinical indication); or iterative reconstruction. COMPARISON: CR XR ankle RT min 3V* [id number] 11/23/2024 7:45 AM RADIATION DOSE METRICS: Total DLP (mGy-cm): 136.1 FINDINGS: Bones/joints: No acute fractures. Severe arthritic changes of the tibiotalar joint with complete loss of joint space and extensive periarticular cystic change. Osteoarthrosis with bone spurring is seen. There is also osteoarthrosis at the distal tibiofibular joint with bony spurring of the lateral malleolus and also the medial malleolus. Well corticated ossicles are seen adjacent to both malleoli and along the anterior aspect of the tibiotalar joint. Small joint bodies can not be excluded. Soft tissues: Generalized subcutaneous edema in the visualized lower leg, ankle, and foot. CT/CT ankle RT wo con* [id number] IMPRESSION: 1. No acute fractures. 2. Severe arthritic changes particularly involving the tibiotalar joint as discussed.
== END 2024-12-09 09:06 | disposition home or self-care (01) ==
PROVIDERS: PCP Family Medicine; Visit Provider Podiatrist Foot & Ankle Surgery
DX: M19.071 Primary osteoarthritis, right ankle and foot (principal); M89.8X7 Other specified disorders of bone, ankle and foot; M24.071 Loose body in right ankle
CPT/HCPCS: 73700

== ENCOUNTER 2025-02-22 02:35 | Emergency (ER) | payer MEDICARE, MEDICAID, SELFPAY ==
[2025-02-22 02:52] VITALS: BP 148/95; PULSE 112; RESP 20; TEMP 36.9; O2SAT 95; BMI 28.8
--- NOTE | 2025-02-22 02:52 | USR_ITS ---
PROCEDURE INFORMATION: Exam: US Duplex Right Lower Extremity Veins, Limited Exam date and time: 02/22/2025 3:25 AM Age: 65 years old Clinical indication: Edema, localized; Lower extremity, right; Additional info: Leg swelling TECHNIQUE: Imaging protocol: Real-time duplex ultrasound of the right extremity with 2-D tejeda scale, color Doppler flow and spectral waveform analysis including responses to compression and other maneuvers (when performed) with image documentation. Limited exam was focused on the right lower extremity veins. COMPARISON: [place] [id number] 11/28/2022 10:19 PM FINDINGS: Right deep veins: Thrombus noted in the right femoral, right popliteal, right peroneal and right posterior tibial veins. Superficial veins: Greater saphenous vein at the saphenofemoral junction is patent without thrombus. Soft tissues: Unremarkable. US/[place] [id number] IMPRESSION: Acute deep vein thrombosis of the right lower extremity.
--- NOTE | 2025-02-22 02:53 | ED_ITS ---
HPI - Extremity Injury (Lower) General: Chief Complaint: Extremity Problem,Nontraumatic Stated Complaint: RT leg Pain Time Seen by Provider: 02/22/25 02:38 Source: patient Mode of arrival: ambulatory Limitations: no limitations History of Present Illness: 65-year-old male whose had right leg iss ues he states for years he has arthritis in his right ankle states he is actually scheduled for surgery with podiatry in the next month. He states that he has had some increased swelling to his right leg along with some increased pain. He states has been going on for little over a week. He denies any injury denies any fevers denies any worse improving factors Related Data Previous Rx's ?Medication ?Instructions ?Recorded arizone AFO #1 ea 06/10/23 meloxicam 7.5 mg tablet 7.5 mg PO .Twice daily #14 t abs 07/20/24 tramadol 50 mg tablet 50 mg PO Q8H PRN pain #20 ta bs 08/03/24 hydrochlorothiazide 25 mg tablet 25 mg PO DAILY #90 ta bs 09/15/24 tizanidine 4 mg capsule 4 mg PO BID PRN muscle spast icity 11/14/24 #40 caps amlodipine 10 mg tablet 10 mg PO DAILY #90 tabs 12/14 07/09 apixaban 5 mg tablet (Eliquis) 5 mg PO BID #60 tabs apixaban 5 mg tablet (Eliquis) 10 mg (2 x 5 mg) PO BID 7 days #28 02/22/25 tabs Allergies Allergy/AdvReac Type Severity Reaction Status Date / Time No Known Allergies Allergy Verified 02/22/25 02:57 Review of Systems Const: Denies: fever(s), chills, body aches or change in appetite ENMT: Denies: throat pain or dental pain Card: Denies: chest pain Resp: Denies: dyspnea GI: Denies: abdominal pain, nausea, vomiting or diarrhea Musc: Reports: extremity pain and extremity swelling; Denies: neck pain or back pain Skin/Breast: Denies: rash Neuro: Denies: headache(s) PFS ED PFSH: Medical History Arthritis of left hip Puncture wound of foot Injury of lower leg, right Dehydration Cellulitis Contusion of lower leg, right Family History Brother , 62 y/o due to blood clot Clotting disorder Mother Cancer ovarian Father Cancer leukemia Other CAD (coronary artery disease) Hypertension Denies family history of Diabetes Dementia Hyperlipidemia Psychiatric illness Chronic kidney disease (CKD) Anesthesia complication Bleeding disorder Lung disease Stroke Social History Smoking and tobacco/nicotine status: tobacco/nicotine user, details unknown Alcohol intake: current Alcohol intake frequency: holidays/special occasions only Substance/Drug Use: never Lives independently: Yes Current occupational status: employed 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 Jenny/Roman Catholic: [employer] Special jenny needs: No Agree to transfusion: Yes Physical Exam Const: COMMON NORMALS: no acute distress, patient oriented x3 and healthy appearing HENMT: COMMON NORMALS: normocephalic and atraumatic HEAD & SCALP: normocephalic and atraumatic Eye: COMMON NORMALS: conjunctivae normal CONJUNCTIVA: Yes conjunctivae normal Neck/C-Spine: COMMON NORMALS: full ROM and supple Chest: COMMONS NORMALS: normal inspection of the chest Resp: COMMON NORMALS: normal respiratory effort Cardio: COMMON NORMALS: regular rate RATE: regular rate Extremity: NARRATIVE EXTREMITY EXAM: Some swelling noted to right lower leg distal pulses sensation intact no warmth to touch or rash Neuro: COMMON NORMALS: patient oriented x3, moves all extremities and no focal motor deficits Psych: COMMON NORMALS: mental status grossly normal, Normal thought process present and cooperative THOUGHT PROCESS: Normal thought process present Skin: COMMON NORMALS: no rashes or lesions noted and no wounds GENERAL SKIN EXAM: no rashes or lesions noted Course Vital Signs: Vital signs: Vital Signs Temperature 98.4 F 02/22/25 02:52 Pulse Rate 95 02/22/25 02:57 Respiratory Rate 20 H 02/22/25 02:52 Blood Pressure 148/95 02/22/25 02:57 Pulse Oximetry 95 02/22/25 02:57 Oxygen Delivery Me thod Room Air 02/22/25 02:52 MDM - Extremity Injury (Lower) Medical Decision Making Patient presents here with right leg pain ultrasound does show a DVT he has no signs of PE no shortness of breath no signs of cellulitis we will start him on Eliquis he is follow-up with PCP return if worsening he understands agrees to plan. Medical Records I reviewed the patient's medical records. All radiology interpretation(s) finalized by discharge Discharge Plan Discharge Patient Disposition: Home Clinical Impression: Deep vein thrombosis of lower extremity Condition: Stable Prescriptions: New Eliquis 5 mg tablet 10 mg PO BID 7 Days Qty: 28 0RF Eliquis 5 mg tablet 5 mg PO BID Qty: 60 0RF Rx Instructions: begin after first week loading dose No Action (DME) arizone AFO See Rx Instructions .Route .MEDSUPPLY Qty: 1 0RF Rx Instructions: As directed made by the antony holley hydrochlorothiazide 25 mg tablet 25 mg PO DAILY Qty: 90 1RF tizanidine 4 mg capsule 4 mg PO BID PRN (Reason: muscle spasticity) Qty: 40 1RF amlodipine 10 mg tablet 10 mg PO DAILY Qty: 90 1RF Rx Instructions: TAKE 1 TABLET BY MOUTH EVERY DAY meloxicam 7.5 mg tablet 7.5 mg PO .Twice daily Qty: 14 0RF tramadol 50 mg tablet 50 mg PO Q8H PRN (Reason: pain) Qty: 20 0RF Discharge Orders: Discharge ED (Routine); Ordered 02/22/25 Ordered By: Armand Hawkins Referrals: Fredy Wooten MD [Primary Care Provider, Family Practice] - 4-7 days Discharge Diet: Advance as tolerated Discharge Activity: Resume usual activity Patient Instructions: Deep Vein Thrombosis (ED) Print Language: Mosotho Coding Level of Care Code ED Drying Machine Receiver for Jeanne Nagy
[2025-02-22 02:57] VITALS: BP 148/95; PULSE 95; O2SAT 95
[2025-02-22 04:08] VITALS: BP 146/83; PULSE 90; O2SAT 96
[2025-02-22 04:09] VITALS: BP 146/83; PULSE 90; O2SAT 96
== END 2025-02-22 04:00 | disposition home or self-care (01) ==
PROVIDERS: Emergency Provider Emergency Medicine; PCP Family Medicine
DX: I82.411 Acute embolism and thrombosis of right femoral vein (principal); I82.431 Acute embolism and thrombosis of right popliteal vein; I82.451 Acute embolism and thrombosis of right peroneal vein; I82.441 Acute embolism and thrombosis of right tibial vein
CPT/HCPCS: 93971; 99284

== ENCOUNTER 2025-03-19 04:13 | Emergency (ER) | payer MEDICARE, MEDICAID, SELFPAY ==
[2025-03-19 04:20] VITALS: BP 178/95; PULSE 78; RESP 16; TEMP 36.7; O2SAT 94; BMI 29.1
[2025-03-19 04:51] VITALS: BP 178/95; PULSE 85; RESP 18; O2SAT 95
--- NOTE | 2025-03-19 05:03 | USR_ITS ---
PROCEDURE INFORMATION: Exam: US Duplex Right Lower Extremity Veins, Limited Exam date and time: 03/19/2025 06:05 AM Age: 65 years old Clinical indication: Edema, localized; Lower extremity, right; Additional info: R leg swelling TECHNIQUE: Imaging protocol: Real-time duplex ultrasound of the right extremity with 2-D tejeda scale, color Doppler flow and spectral waveform analysis including responses to compression and other maneuvers (when performed) with image documentation. Limited exam was focused on the right lower extremity veins. COMPARISON: [place] [id number] 02/22/2025 03:25 AM FINDINGS: Right deep veins: Intraluminal thrombus is identified within the right superficial femoral, popliteal and peroneal deep veins with complete occlusion. The right common femoral, deep femoral and posterior tibial veins appear patent with normal color flow. Superficial veins: Greater saphenous vein at the saphenofemoral junction is patent without thrombus. Soft tissues: Unremarkable. US/[place] [id number] IMPRESSION: Occlusive deep vein thrombosis within the right superficial femoral, popliteal and peroneal veins.
--- NOTE | 2025-03-19 05:06 | ED_ITS ---
Documented by User: John Neal, 03/19/25 19:53 HPI - Extremity Problem 2 General: Chief complaint: Extremity Problem,Nontraumatic Stated complaint: blood clot now swelling concerned Time Seen by Provider: 03/19/25 04:51 History of Present Illness: Patient is a 65-year-old male with significant right lower extremity edema. He reports a history of a DVT diagnosed 3-4 weeks ago when he presented with pain radiating from his leg up to his buttock. He was placed on blood thinners for one week, which resolved his pain. The patient states his surgery (foot/ankle) that was scheduled for approximately 10 days ago was postponed for three months due to the DVT. He reports significant swelling in his affected leg that worsens with activity and when wearing socks or shoes. He states he can only wear slippers currently. The patient is concerned about the persistent swelling as his brother from a pulmonary embolism at age 62. He denies chest pain. Patient reports he has been off his blood pressure medication for three days because he misplaced it during home renovations. He has a history of cellulitis in the same leg approximately 3.5 years ago after stepping on a nail, which he was told damaged his veins. He previously tried compression stockings but has difficulty putting them on and taking them off due to limited mobility. The patient is eager to address his leg swelling so he can proceed with planned orthopedic surgeries for his foot/ankle and knee. Related Data Previous Rx's ?Medication ?Instructions ?Recorded arizone AFO #1 ea 06/10/23 meloxicam 7.5 mg tablet 7.5 mg PO .Twice daily #14 t abs 07/20/24 tramadol 50 mg tablet 50 mg PO Q8H PRN pain #20 ta bs 08/03/24 hydrochlorothiazide 25 mg tablet 25 mg PO DAILY #90 ta bs 09/15/24 tizanidine 4 mg capsule 4 mg PO BID PRN muscle spast icity 11/14/24 #40 caps amlodipine 10 mg tablet 10 mg PO DAILY #30 tabs 11/06 apixaban 5 mg tablet (Eliquis) 5 mg PO BID #60 tabs hydrochlorothiazide 25 mg tablet 25 mg PO DAILY #30 ta bs 03/19/25 Allergies Allergy/AdvReac Type Severity Reaction Status Date / Time No Known Allergies Allergy Verified 02/22/25 02:57 [facility] ED 2 [facility]: Medical History (Updated 03/19/25 @ 05:24 by John Neal DO) Arthritis of left hip Puncture wound of foot Injury of lower leg, right Dehydration Cellulitis Contusion of lower leg, right Family History Brother , 62 y/o due to blood clot Clotting disorder Mother Cancer ovarian Father Cancer leukemia Other CAD (coronary artery disease) Hypertension Denies family history of Diabetes Dementia Hyperlipidemia Psychiatric illness Chronic kidney disease (CKD) Anesthesia complication Bleeding disorder Lung disease Stroke Social History Smoking and tobacco/nicotine status: tobacco/nicotine user, details unknown Alcohol intake: current Alcohol intake frequency: holidays/special occasions only Substance/Drug Use: never Lives independently: Yes Current occupational status: employed 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 Jenny/Lutheran: Anabaptist Special jenny needs: No Agree to transfusion: Yes Physical Exam 2 Const: COMMON NORMALS: no acute distress GENERAL APPEARANCE: cooperative; not ill appearing and not frail appearing HENMT: COMMON NORMALS: normocephalic, atraumatic and Normal external nose present HEAD & SCALP: normocephalic and atraumatic FACE & SINUS: normal facial exam and face symmetric NOSE: Normal external nose present Eye: COMMON NORMALS: Equal, round and reactive pupils present and EOMs intact bilaterally PUPIL: Yes Equal, round and reactive pupils present Neck/C-Spine: GENERAL: Yes trachea midline Chest: CHEST: Yes Symmetrical chest wall rise Resp: COMMON NORMALS: normal respiratory effort, No retractions, No use of accessory muscles and clear to auscultation bilaterally AUSCULTATION: clear to auscultation bilaterally Cardio: COMMON NORMALS: regular rate and regular rhythm RATE: regular rate RHYTHM: regular rhythm GI: COMMON NORMALS: Normal to inspection, nondistended, normoactive bowel sounds present Extremity: COMMON NORMALS: no pedal edema NARRATIVE EXTREMITY EXAM: Exam of the right lower extremity reveals 3-4+ edema. Mild tenderness to palpation. No significant deformity. Pulses are normal. Sensation is normal. Left lower extremity shows minimal edema. Neuro: AILYN COMA SCALE: document GCS findings [place] coma scale eye opening: Spontaneous Ailyn coma scale verbal response: Orientated [place] coma scale motor response: Obey commands Ailyn coma scale total score: 15 S ENSORY EXAM: Yes extremities (intact) Psych: COMMON NORMALS: speech normal SPEECH: Yes normal speech Skin: COMMON NORMALS: no rashes or lesions noted GENERAL SKIN EXAM: no rashes or lesions noted Course 2 Vital Signs: Vital signs: Vital Signs Temperature 98.0 F 03/19/25 04:20 Pulse Rate 80 03/19/25 06:30 Respiratory Rate 16 03/19/25 06:30 Blood Pressure 163/98 03/19/25 06:30 Pulse Oximetry 97 03/19/25 06:30 Oxygen Delivery Me thod Room Air 03/19/25 04:51 MDM - Extremity (Nontraumatic) Medical Decision Making The patient only took 1 week of Eliquis following diagnosis of a DVT last month. He has been off for 3 weeks. Leg swelling is worsening. He denies any chest pain or shortness of breath. Ultrasound is pending to see if that shows a completely occlusive DVT that might be amenable to thrombectomy. CBC is normal. Other laboratory is pending. Lab Data 03/19/25 04:48 03/19/25 04:48 Radiology Impressions Venous Duplex 03/19/25 05:03 IMPRESSION: Occlusive deep vein thrombosis within the right superficial femoral, popliteal and peroneal veins. Laboratory Results WBC 6.13 10^3/uL (3.29-11.43) 03/19/25 04:48 RBC 4.00 10^6/uL (3.85-5.65) 03/19/25 04:48 Hgb 11.80 g/dL (11.27-16.99) 03/19/25 04:48 Hct 35.8 % (37-53) L 03/19/25 04:48 MCV 89.5 fl (82-101) 03/19/25 04:48 MCH 29.5 pg (27-33) 03/19/25 04:48 MCHC 33.0 g/dL (30-55) 03/19/25 04:48 RDW 14.1 % (12.1-15.1) 03/19/25 04:48 Plt Count 198 10^3/cmm (157-399) 03/19/25 04:48 MPV 10.0 fL (7.4-10.4) 03/19/25 04:48 Neut % (Auto) 52.9 % 03/19/25 04:48 Lymph % (Auto) 30.5 % 03/19/25 04:48 [place] % (Auto) 7.8 % 03/19/25 04:48 Eos % (Auto) 7.7 % 03/19/25 04:48 Baso % (Auto) 0.8 % 03/19/25 04:48 Neut # (Auto) 3.24 10^3/uL (1.8-7.7) 03/19/25 04:48 Lymph # (Auto) 1.9 10^3/uL (0.8-4.8) 03/19/25 04:48 [place] # (Auto) 0.5 10^3/uL (0.2-0.9) 03/19/25 04:48 Eos # (Auto) 0.5 10^3/uL (0.0-0.8) 03/19/25 04:48 Baso # (Auto) 0.1 10^3/uL (0.0-0.1) 03/19/25 04:48 Nucleated RBC % (auto) 0 % 03/19/25 04:48 Nucleated RBCs # 0.0 /100WBC 03/19/25 04:48 ESR 24 mm/hr (0-10) H 03/19/25 04:48 PT 12.40 SECONDS (12.1-14.9) 03/19/25 04:48 INR 0.87 (0.8-1.2) 03/19/25 04:48 APTT 26.3 SECONDS (23.9-36.7) 03/19/25 04:48 Sodium 141 mmol/L (136-145) 03/19/25 04:48 Potassium 3.4 mmol/L (3.5-5.1) L 03/19/25 04:48 Chloride 103 mmol/L (98-107) 03/19/25 04:48 Carbon Dioxide 24 mmol/L (22-29) 03/19/25 04:48 Anion Gap 17.4 (5-19) 03/19/25 04:48 BUN 31 mg/dL (8-23) H 03/19/25 04:48 Creatinine 1.9 mg/dL (0.7-1.2) H 03/19/25 04:48 GFR Calculation 35.8 mL/min (90-130) L 03/19/25 04:48 Glucose 115 mg/dL (65-115) 03/19/25 04:48 Calculated Osmolality 299 mOsm/kg (285-295) H 03/19/25 04:48 Calcium 9.4 mg/dL (8.5-10.5) 03/19/25 04:48 Total Bilirubin 0.3 mg/dL (0.15-1.2) 03/19/25 04:48 AST 19 U/L (0-40) 03/19/25 04:48 ALT 20 U/L (0-41) 03/19/25 04:48 Alkaline Phosphatase 118 U/L (40-130) 03/19/25 04:48 C-Reactive Protein 7.7 mg/L (0.0-4.9) H 03/19/25 04:48 NT-Pro-B Natriuret Pep 200 pg/mL (0-125) H 03/19/25 04:48 Total Protein 7.9 g/dL (6.6-8.7) 03/19/25 04:48 Albumin 4.2 g/dL (3.5-5.2) 03/19/25 04:48 Globulin 3.7 g/dL (1.3-4.6) 03/19/25 04:48 Discharge Plan Discharge Patient Disposition: Home Clinical Impression: Deep vein thrombosis of lower extremity Qualifiers: Chronicity: unspecified Laterality: right Condition: Stable Prescriptions: New hydrochlorothiazide 25 mg tablet 25 mg PO DAILY Qty: 30 0RF Continued Eliquis 5 mg tablet 5 mg PO BID Qty: 60 2RF Rx Instructions: begin after first week loading dose amlodipine 10 mg tablet 10 mg PO DAILY Qty: 30 1RF Rx Instructions: TAKE 1 TABLET BY MOUTH EVERY DAY No Action (DME) arizone AFO See Rx Instructions .Route .MEDSUPPLY Qty: 1 0RF Rx Instructions: As directed made by the antony holley hydrochlorothiazide 25 mg tablet 25 mg PO DAILY Qty: 90 1RF tizanidine 4 mg capsule 4 mg PO BID PRN (Reason: muscle spasticity) Qty: 40 1RF meloxicam 7.5 mg tablet 7.5 mg PO .Twice daily Qty: 14 0RF tramadol 50 mg tablet 50 mg PO Q8H PRN (Reason: pain) Qty: 20 0RF Discharge Orders: Discharge ED (Routine); Ordered 03/19/25 Ordered By: Armand Hawkins Referrals: Fredy Wooten MD [Primary Care Provider, Family Practice] - 4-7 days Discharge Diet: Advance as tolerated Discharge Activity: Resume usual activity Patient Instructions: Deep Vein Thrombosis (ED), Patient Portal & Francia Instructions Activity Restrictions/Additional Instructions: You will be required to be on Eliquis for 3 to 6 months. Call your doctor for follow-up appointment. Blood pressure medication has been reordered for you as you have misplaced yours. Hydrochlorothiazide can help with the swelling as well. Print Language: Iranian Coding Level of Care Code ED Machine Sneller for Chg Fwd Documented by User: Armand Hawkins MD 03/19/25 06:25 HPI - Extremity Problem 2 General: Chief complaint: Extremity Problem,Nontraumatic Stated complaint: blood clot now swelling concerned Time Seen by Provider: 03/19/25 04:51 Related Data Previous Rx's ?Medication ?Instructions ?Recorded arizone AFO #1 ea 06/10/23 meloxicam 7.5 mg tablet 7.5 mg PO .Twice daily #14 t abs 07/20/24 tramadol 50 mg tablet 50 mg PO Q8H PRN pain #20 ta bs 08/03/24 hydrochlorothiazide 25 mg tablet 25 mg PO DAILY #90 ta bs 09/15/24 tizanidine 4 mg capsule 4 mg PO BID PRN muscle spast icity 11/14/24 #40 caps amlodipine 10 mg tablet 10 mg PO DAILY #30 tabs 1011/06 apixaban 5 mg tablet (Eliquis) 5 mg PO BID #60 tabs hydrochlorothiazide 25 mg tablet 25 mg PO DAILY #30 ta bs 03/19/25 Allergies Allergy/AdvReac Type Severity Reaction Status Date / Time No Known Allergies Allergy Verified 02/22/25 02:57 [facility] ED 2 [facility]: Medical History (Updated 03/19/25 @ 05:24 by John Neal DO) Arthritis of left hip Puncture wound of foot Injury of lower leg, right Dehydration Cellulitis Contusion of lower leg, right Family History Brother , 62 y/o due to blood clot Clotting disorder Mother Cancer ovarian Father Cancer leukemia Other CAD (coronary artery disease) Hypertension Denies family history of Diabetes Dementia Hyperlipidemia Psychiatric illness Chronic kidney disease (CKD) Anesthesia complication Bleeding disorder Lung disease Stroke Social History Smoking and tobacco/nicotine status: tobacco/nicotine user, details unknown Alcohol intake: current Alcohol intake frequency: holidays/special occasions only Substance/Drug Use: never Lives independently: Yes Current occupational status: employed 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 He has been off for 3 weeks. Leg swelling is worsening. He denies any chest pain or shortness of breath. Ultrasound is pending to see if that shows a completely occlusive DVT that might be amenable to thrombectomy. CBC is normal. Other laboratory is pending. I took patient over from Dr. Neal ultrasound shows DVT that has not progressed. Patient has no signs of arterial occlusion here. Does not have cerebral Dillow and does not need a thrombectomy I informed him that he needs to take his Eliquis as prescribed he was not supposed take it for just 1 week he understands he states he will fill Eliquis and start take and follow-up with his PCP he had no shortness of breath no signs of PE he understands agrees to plan I did receive a verbal confirmation ultrasound from registered diet technician official reading is still pending Medical Records I reviewed the patient's medical records. Lab Data I reviewed the patient's lab results. 03/19/25 04:48 03/19/25 04:48 Radiology Impressions Venous Duplex 03/19/25 05:03 IMPRESSION: Occlusive deep vein thrombosis within the right superficial femoral, popliteal and peroneal veins. Laboratory Results WBC 6.13 10^3/uL (3.29-11.43) 03/19/25 04:48 RBC 4.00 10^6/uL (3.85-5.65) 03/19/25 04:48 Hgb 11.80 g/dL (11.27-16.99) 03/19/25 04:48 Hct 35.8 % (37-53) L 03/19/25 04:48 MCV 89.5 fl (82-101) 03/19/25 04:48 MCH 29.5 pg (27-33) 03/19/25 04:48 MCHC 33.0 g/dL (30-55) 03/19/25 04:48 RDW 14.1 % (12.1-15.1) 03/19/25 04:48 Plt Count 198 10^3/cmm (157-399) 03/19/25 04:48 MPV 10.0 fL (7.4-10.4) 03/19/25 04:48 Neut % (Auto) 52.9 % 03/19/25 04:48 Lymph % (Auto) 30.5 % 03/19/25 04:48 [place] % (Auto) 7.8 % 03/19/25 04:48 Eos % (Auto) 7.7 % 03/19/25 04:48 Baso % (Auto) 0.8 % 03/19/25 04:48 Neut # (Auto) 3.24 10^3/uL (1.8-7.7) 03/19/25 04:48 Lymph # (Auto) 1.9 10^3/uL (0.8-4.8) 03/19/25 04:48 [place] # (Auto) 0.5 10^3/uL (0.2-0.9) 03/19/25 04:48 Eos # (Auto) 0.5 10^3/uL (0.0-0.8) 03/19/25 04:48 Baso # (Auto) 0.1 10^3/uL (0.0-0.1) 03/19/25 04:48 Nucleated RBC % (auto) 0 % 03/19/25 04:48 Nucleated RBCs # 0.0 /100WBC 03/19/25 04:48 ESR 24 mm/hr (0-10) H 03/19/25 04:48 PT 12.40 SECONDS (12.1-14.9) 03/19/25 04:48 INR 0.87 (0.8-1.2) 03/19/25 04:48 APTT 26.3 SECONDS (23.9-36.7) 03/19/25 04:48 Sodium 141 mmol/L (136-145) 03/19/25 04:48 Potassium 3.4 mmol/L (3.5-5.1) L 03/19/25 04:48 Chloride 103 mmol/L (98-107) 03/19/25 04:48 Carbon Dioxide 24 mmol/L (22-29) 03/19/25 04:48 Anion Gap 17.4 (5-19) 03/19/25 04:48 BUN 31 mg/dL (8-23) H 03/19/25 04:48 Creatinine 1.9 mg/dL (0.7-1.2) H 03/19/25 04:48 GFR Calculation 35.8 mL/min (90-130) L 03/19/25 04:48 Glucose 115 mg/dL (65-115) 03/19/25 04:48 Calculated Osmolality 299 mOsm/kg (285-295) H 03/19/25 04:48 Calcium 9.4 mg/dL (8.5-10.5) 03/19/25 04:48 Total Bilirubin 0.3 mg/dL (0.15-1.2) 03/19/25 04:48 AST 19 U/L (0-40) 03/19/25 04:48 ALT 20 U/L (0-41) 03/19/25 04:48 Alkaline Phosphatase 118 U/L (40-130) 03/19/25 04:48 C-Reactive Protein 7.7 mg/L (0.0-4.9) H 03/19/25 04:48 NT-Pro-B Natriuret Pep 200 pg/mL (0-125) H 03/19/25 04:48 Total Protein 7.9 g/dL (6.6-8.7) 03/19/25 04:48 Albumin 4.2 g/dL (3.5-5.2) 03/19/25 04:48 Globulin 3.7 g/dL (1.3-4.6) 03/19/25 04:48 XR interpretation done by ED provider, pending radiology final review Discharge Plan Discharge Patient Disposition: Home Clinical Impression: Deep vein thrombosis of lower extremity Qualifiers: Chronicity: unspecified Laterality: right Condition: Stable Prescriptions: New hydrochlorothiazide 25 mg tablet 25 mg PO DAILY Qty: 30 0RF Continued Eliquis 5 mg tablet 5 mg PO BID Qty: 60 2RF Rx Instructions: begin after first week loading dose amlodipine 10 mg tablet 10 mg PO DAILY Qty: 30 1RF Rx Instructions: TAKE 1 TABLET BY MOUTH EVERY DAY No Action (DME) arizone AFO See Rx Instructions .Route .MEDSUPPLY Qty: 1 0RF Rx Instructions: As directed made by the antony holley hydrochlorothiazide 25 mg tablet 25 mg PO DAILY Qty: 90 1RF tizanidine 4 mg capsule 4 mg PO BID PRN (Reason: muscle spasticity) Qty: 40 1RF meloxicam 7.5 mg tablet 7.5 mg PO .Twice daily Qty: 14 0RF tramadol 50 mg tablet 50 mg PO Q8H PRN (Reason: pain) Qty: 20 0RF Discharge Orders: Discharge ED (Routine); Ordered 03/19/25 Ordered By: Armand Hawkins Referrals: Fredy Wooten MD [Primary Care Provider, Family Practice] - 4-7 days Discharge Diet: Advance as tolerated Discharge Activity: Resume usual activity Patient Instructions: Deep Vein Thrombosis (ED), Patient Portal & Francia Instructions Activity Restrictions/Additional Instructions: You will be required to be on Eliquis for 3 to 6 months. Call your doctor for follow-up appointment. Blood pressure medication has been reordered for you as you have misplaced yours. Hydrochlorothiazide can help with the swelling as well. Print Language: Iranian Coding Level of Care Code ED Machine Sneller for Jeanne Nagy
[2025-03-19 05:13] LABS: Hematocrit 35.8 % (37-53); Hemoglobin 11.80 g/dL (11.27-16.99); Mean Corpuscular HGB Conc 33.0 g/dL (30-55); Mean Corpuscular Hemoglobin 29.5 pg (27-33); Mean Corpuscular Volume 89.5 fl (82-101); Nucleated Red Blood Cells % 0 %; Platelet Count 198 10^3/cmm (157-399); Red Blood Count 4.00 10^6/uL (3.85-5.65); White Blood Count 6.13 10^3/uL (3.29-11.43)
[2025-03-19] MEDS: FUROsemide 10 mg/mL SDV 10mL 60 MG IVP (05:15)
[2025-03-19 05:24] LABS: INR 0.87 (0.8-1.2); Prothrombin Time 12.40 SECONDS (12.1-14.9)
[2025-03-19 05:25] LABS: Partial Thromboplastin Time 26.3 SECONDS (23.9-36.7)
[2025-03-19 05:42] LABS: Alanine Aminotransferase 20 U/L (0-41); Albumin Level 4.2 g/dL (3.5-5.2); Alkaline Phosphatase 118 U/L (40-130); Anion Gap 17.4 (5-19); Aspartate Amino Transferase 19 U/L (0-40); Blood Urea Nitrogen 31 mg/dL (8-23); Calcium 9.4 mg/dL (8.5-10.5); Carbon Dioxide 24 mmol/L (22-29); Chloride 103 mmol/L (98-107); Globulin 3.7 g/dL (1.3-4.6); Glucose 115 mg/dL (65-115); NT Pro B Type Natriuretic Pept 200 pg/mL (0-125); Osmolality Calculated 299 mOsm/kg (285-295); Potassium 3.4 mmol/L (3.5-5.1); Sodium 141 mmol/L (136-145); Total Protein 7.9 g/dL (6.6-8.7)
[2025-03-19 05:43] LABS: Creatinine Clr Calc Pharmacy 45.5594
[2025-03-19 06:30] VITALS: BP 163/98; PULSE 80; RESP 16; O2SAT 97
== END 2025-03-19 06:44 | disposition home or self-care (01) ==
PROVIDERS: Emergency Medicine; Emergency Provider Emergency Medicine; PCP Family Medicine
DX: I82.431 Acute embolism and thrombosis of right popliteal vein (principal); I82.451 Acute embolism and thrombosis of right peroneal vein; I82.411 Acute embolism and thrombosis of right femoral vein
CPT/HCPCS: 36415; 80053; 83880; 85025; 85610; 85651; 85730; 86140; 93971; 96374; 99284; J1938

== ENCOUNTER 2025-05-03 01:36 | Emergency (ER) | payer MEDICARE, MEDICAID, SELFPAY ==
[2025-05-03 01:42] VITALS: BP 144/94; PULSE 89; RESP 18; TEMP 36.6; O2SAT 98; BMI 29.2
[2025-05-03 02:33] VITALS: BP 154/92; PULSE 86; O2SAT 97
--- NOTE | 2025-05-03 02:40 | USR_ITS ---
PROCEDURE INFORMATION: Exam: US Duplex Lower Extremity Veins, Bilateral Exam date and time: 05/03/2025 3:59 AM Age: 65 years old Clinical indication: Pain; Leg, lower; Right; Additional info: Recent treated rle dvt, tingling and pain and lle TECHNIQUE: Imaging protocol: Real-time duplex ultrasound of the bilateral extremities with 2-D tejeda scale, color Doppler flow and spectral waveform analysis including responses to compression and other maneuvers (when performed) with image documentation. Complete exam focused on the lower extremity veins. COMPARISON: [place] [id number] 03/19/2025 6:05 AM FINDINGS: Evaluated veins include bilateral common femoral, proximal profunda femoral, proximal/mid/distal superficial femoral, popliteal, posterior tibial, peroneal, and proximal greater saphenous veins. Right leg: There is partially occluding thrombus in the right superficial femoral and popliteal veins. The thrombus in these veins is eccentrically located, and is likely chronic, difficult to be completely certain. Please correlate clinically. Occluding thrombus is present in the posterior tibial and peroneal veins. Difficult to be certain whether this is acute or chronic thrombus. No visible clot in the other included veins. The other included veins appear normally compressible. Duplex Doppler evaluation demonstrates flow in the other evaluated veins. Left leg: No visible clot in the included veins. The included veins appear normally compressible. Duplex Doppler evaluation demonstrates flow in the evaluated veins. US/[place] [id number] IMPRESSION: 1. Partially occluding thrombus in the right superficial femoral and popliteal veins, see above discussion. 2. Occluding thrombus is present in the posterior tibial and peroneal veins. 3. No evidence of acute left lower extremity deep venous thrombosis.
[2025-05-03 03:00] VITALS: BP 150/94; PULSE 74; O2SAT 95
[2025-05-03 04:30] VITALS: BP 169/97; PULSE 66; O2SAT 96
--- NOTE | 2025-05-03 05:18 | ED_ITS ---
HPI - Extremity Problem General: Chief complaint: Extremity Problem,Nontraumatic Stated complaint: RT Swollen Leg Time Seen by Provider: 05/03/25 02:20 History of Present Illness: Patient is a 65-year-old male with a past medical history of hypertension, previous DVT on Eliquis who presents to the ED with left lower extremity tingling. He was first diagnosed with a blood clot to his right lower leg 3 months ago, has been on Eliquis since, has had follow-ups, originally had 3 DVTs over a year. He denies any chest pain, shortness of breath, syncopal episodes. He states he has been compliant on his Eliquis, and is now worried about a left leg blood clot, denies any new trauma. Related Data Previous Rx's ?Medication ?Instructions ?Recorded arizone AFO #1 ea 06/10/23 tizanidine 4 mg capsule 4 mg PO BID PRN muscle spast icity 11/14/24 #40 caps apixaban 5 mg tablet (Eliquis) 5 mg PO BID #60 tabs amlodipine 10 mg tablet 10 mg PO DAILY #90 tabs 1001/06 hydrochlorothiazide 25 mg tablet 25 mg PO DAILY #90 ta bs 03/21/25 oxycodone 5 mg tablet 5 mg PO Q8H PRN pain #7 tabs 05/03/25 Allergies Allergy/AdvReac Type Severity Reaction Status Date / Time No Known Allergies Allergy Verified 04/11/25 11:18 Review of Systems General: Reports: 10 or more systems reviewed and unremarkable except in HPI and below Musc: Reports: extremity swelling [facility] ED PFSH: Medical History (Updated 05/03/25 @ 05:15 by Derrick Yo DO) Arthritis of left hip Puncture wound of foot Injury of lower leg, right Dehydration Cellulitis Contusion of lower leg, right Family History Brother , 62 y/o due to blood clot Clotting disorder Mother Cancer ovarian Father Cancer leukemia Other CAD (coronary artery disease) Hypertension Denies family history of Diabetes Dementia Hyperlipidemia Psychiatric illness Chronic kidney disease (CKD) Anesthesia complication Bleeding disorder Lung disease Stroke Social History Smoking and tobacco/nicotine status: never used tobacco/nicotine Alcohol intake: current Alcohol intake frequency: holidays/special occasions only Substance/Drug Use: never Lives independently: Yes Current occupational status: employed 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 Right lower extremity with moderate amount of nonpitting edema, which she states is baseline, no overlying erythema or bruising. Full range of motion and no tenderness at right hip, knee and ankle joint. Left lower extremity but no calf tenderness, no tenderness at left hip, knee, ankle joint. 5 out of 5 motor and sensation to bilateral lower extremities, 2+ pulses, compartment firm on the right, soft on the left. No redness or erythema. Breathing comfortably on room air, saturating well, normal sinus rhythm with no murmurs. Course Vital Signs: Vital signs: Vital Signs Temperature 97.8 F 05/03/25 01:42 Pulse Rate 66 05/03/25 04:30 Respiratory Rate 18 05/03/25 01:42 Blood Pressure 169/97 05/03/25 04:30 Pulse Oximetry 96 05/03/25 04:30 Oxygen Delivery Me thod Room Air 05/03/25 04:30 MDM - Extremity (Nontraumatic) Medical Decision Making -ddx: DVT, cellulitis, sprain, fracture, dislocation - Patient overall well-appearing, with first documented DVT 2 months ago, has been compliant on Eliquis since then, has had similar symptoms that he presented with his original DVT with on the left side. Low concern for PE at this time with no chest pain, shortness of breath, syncope and has been compliant on his Eliquis. Denies any new trauma. Has had no actual neurodeficits associated with this. Will obtain ultrasound of both sides, give symptomatic medication and reassess. - DVT ultrasound with 1 occlusive and 1 partially occlusive DVT, probably chronic in nature, believe them to be overall improved from prior. Low degree of clot burden and he is in the middle of his long-term Eliquis dose and think it is working appropriately. Importantly, no DVT on the left. [place] mildly improved with muscle relaxant and with an overall improved scan, he was able to be discharged to continue taking his Eliquis and given a few oxycodones for breakthrough pain, encouraged to follow-up with PCP in a week's time, strict return precautions given, patient discharged home. Lab Data Radiology Impressions Venous Duplex 05/03/25 02:40 IMPRESSION: 1. Partially occluding thrombus in the right superficial femoral and popliteal veins, see above discussion. 2. Occluding thrombus is present in the posterior tibial and peroneal veins. 3. No evidence of acute left lower extremity deep venous thrombosis. All radiology interpretation(s) finalized by discharge Discharge Plan Discharge Patient Disposition: Home Clinical Impression: Deep vein thrombosis of lower extremity Condition: Stable Prescriptions: New oxycodone 5 mg tablet 5 mg PO Q8H PRN (Reason: pain) Qty: 7 0RF No Action (DME) arizone AFO See Rx Instructions .Route .MEDSUPPLY Qty: 1 0RF Rx Instructions: As directed made by the antony holley amlodipine 10 mg tablet 10 mg PO DAILY Qty: 90 1RF Rx Instructions: TAKE 1 TABLET BY MOUTH EVERY DAY hydrochlorothiazide 25 mg tablet 25 mg PO DAILY Qty: 90 1RF tizanidine 4 mg capsule 4 mg PO BID PRN (Reason: muscle spasticity) Qty: 40 1RF Eliquis 5 mg tablet 5 mg PO BID Qty: 60 2RF Rx Instructions: begin after first week loading dose Discharge Orders: Discharge ED (Routine); Ordered 05/03/25 Ordered By: Derrick Yo Referrals: Fredy Wooten MD [Primary Care Provider, [facility]] Discharge Diet: Usual diet Discharge Activity: Increase activity as tolerated Patient Instructions: Opioid Safety, Pain Management, Patient Portal & Francia Instructions Activity Restrictions/Additional Instructions: You were seen for your leg aches and tingling, you were evaluated with an ultrasound which found persistence of the 2 clots in your right side with probable overall improvement since being on the blood thinner and no blood clots on the left side. To manage the pain associated with this, use Tylenol 650 mg every 6 hours as needed, for breakthrough pain on top of this, use the oxycodone 5 mg every 8 hours as needed, do not drive or operate heavy machinery with this medication as it can be sedating. Continue to take your Eliquis as originally prescribed. Return to the ED with severe worsening of the pain, severe swelling or redness at the site, inability to move or feel your leg, or any other emergent concerns. Print Language: Mohawk Coding Level of Care Code ED Professor In Family Studies for Jeanne Nagy
== END 2025-05-03 05:51 | disposition home or self-care (01) ==
PROVIDERS: Emergency Provider Student in an Organized Health Care Education/Training Program; PCP Family Medicine
DX: I82.411 Acute embolism and thrombosis of right femoral vein (principal); I82.431 Acute embolism and thrombosis of right popliteal vein; I82.811 Embolism and thrombosis of superficial veins of right lower extremity; I82.441 Acute embolism and thrombosis of right tibial vein; I82.451 Acute embolism and thrombosis of right peroneal vein; Z79.01 Long term (current) use of anticoagulants
CPT/HCPCS: 93970; 99284; J9999

== ENCOUNTER 2025-05-25 01:50 | Emergency (ER) | payer MEDICARE, SELFPAY ==
[2025-05-25 01:58] VITALS: BP 132/80; PULSE 91; RESP 16; TEMP 36.7; O2SAT 94; BMI 32.6
[2025-05-25 02:34] VITALS: BP 134/93; PULSE 91; RESP 18; O2SAT 96
[2025-05-25 03:04] VITALS: BP 153/94; PULSE 87; RESP 18; O2SAT 96
[2025-05-25 03:30] VITALS: BP 136/67; PULSE 72; RESP 18; O2SAT 94
--- NOTE | 2025-05-25 03:33 | W.ED.GENADLT ---
HPI - General Adult General: Chief complaint: General Medical Stated complaint: RT leg possible blood clots Time Seen by Provider: 05/25/25 02:00 History of Present Illness: 65yo M w/pmhx of DVT on eliquis, last US on 05/03/2025: IMPRESSION: 1. Partially occluding thrombus in the right superficial femoral and popliteal veins, see above discussion. 2. Occluding thrombus is present in the posterior tibial and peroneal veins. 3. No evidence of acute left lower extremity deep venous thrombosis. w/cc of running out of eliquis 3 days ago, also desiring repeat US to see if DVT is now gone so he can get cleared for further orthopaedic surgery. Patient denies fever, chest pain, shortness of breath, hemoptysis, new swelling of LE (in fact, reports improving RLE sweling), abd pain, n/v/d. Related Data Previous Rx's ?Medication ?Instructions ?Recorded arizone AFO #1 ea 06/10/23 tizanidine 4 mg capsule 4 mg PO BID PRN muscle spasticity 11/14/24 #40 caps apixaban 5 mg tablet (Eliquis) 5 mg PO BID #60 tabs 03/19/25 amlodipine 10 mg tablet 10 mg PO DAILY #90 tabs 03/21/25 hydrochlorothiazide 25 mg tablet 25 mg PO DAILY #90 tabs 03/21/25 oxycodone 5 mg tablet 5 mg PO Q8H PRN pain #7 tabs 05/03/25 apixaban 5 mg tablet (Eliquis) 5 mg PO BID 14 days #28 tabs 05/25/25 oxycodone 5 mg tablet 5 mg PO TID PRN pain (scale score 05/25/25 7-10) #9 tabs Allergies Allergy/AdvReac Type Severity Reaction Status Date / Time No Known Allergies Allergy Verified 05/25/25 02:04 [facility] ED PFSH: Medical History (Updated 05/25/25 @ 03:34 by Nora Lambert MD) Arthritis of left hip Puncture wound of foot Injury of lower leg, right Dehydration Cellulitis Contusion of lower leg, right Family History Brother , 62 y/o due to blood clot Clotting disorder Mother Cancer ovarian Father Cancer leukemia Other CAD (coronary artery disease) Hypertension Denies family history of Diabetes Dementia Hyperlipidemia Psychiatric illness Chronic kidney disease (CKD) Anesthesia complication Bleeding disorder Lung disease Stroke Social History Smoking and tobacco/nicotine status: never used tobacco/nicotine Alcohol intake: current Alcohol intake frequency: holidays/special occasions only Substance/Drug Use: never Lives independently: Yes Current occupational status: employed 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 Patient is alert and oriented. Patient is breathing comfortably, no increased WOB or accessory muscle use. SpO2 is above 92% on RA. Patient has clear lungs b/l, no rhonchi, wheezing or crackles. No hypotension or tachycardia. Patient is moving all extremities, no deformity or gross injury. +RLE swelling in comparison to L, known DVT on previous US. Course Vital Signs: Vital signs: Vital Signs Temperature 98.1 F 05/25/25 01:58 Pulse Rate 72 05/25/25 03:30 Respiratory Rate 18 05/25/25 03:30 Blood Pressure 136/67 05/25/25 03:30 Pulse Oximetry 94 05/25/25 03:30 Oxygen Delivery Me thod Room Air 05/25/25 03:30 MDM - General Adult Medical Decision Making 65yo M with previous diagnosis of DVT here due to running out of his Eliquis, also desiring repeat ultrasound to see if blood clots have not resolved. Differential diagnosis includes but is limited to, DVT, PE, medication noncompliance, other. On exam, patient is hemodynamically stable and nontoxic-appearing. Patient does not appear to have any new symptoms such as shortness of breath, cough, hemoptysis, chest pain, pain with deep respirations and he denies any new lower extremity swelling. In fact, he reports improving right lower extremity swelling. Given that ultrasound was less than 30 days ago, I feel that emergent ultrasound for DVT screening/resolution is not indicated. I did recommend he continue his Eliquis, he was given a dose in the emergency department and he needs to follow-up with his primary care doctor regarding timing of discontinuation of Eliquis/medications for DVT and talk to his orthopedic surgeon regarding any future orthopedic surgery options. At this time, he is appropriate for discharge and outpatient management. Patient was counseled on supportive care at home, given return precautions and discharged in stable condition with recommendation for outpatient follow-up with primary care nurse or doctor. No radiology studies performed this visit Discharge Plan Discharge Patient Disposition: Home Clinical Impression: DVT of lower extremity (deep venous thrombosis) Qualifiers: Affected thrombotic vein of extremity: unspecified vein of extremity Chronicity: chronic Laterality: right Qualified Code(s): I82.501 - Chronic embolism and thrombosis of unspecified deep veins of right lower extremity Condition: Stable Prescriptions: New Eliquis 5 mg tablet 5 mg PO BID 14 Days Qty: 28 0RF oxycodone 5 mg tablet 5 mg PO TID PRN (Reason: pain (scale score 7-10)) Qty: 9 0RF No Action (DME) arizone AFO See Rx Instructions .Route .MEDSUPPLY Qty: 1 0RF Rx Instructions: As directed made by the antony holley amlodipine 10 mg tablet 10 mg PO DAILY Qty: 90 1RF Rx Instructions: TAKE 1 TABLET BY MOUTH EVERY DAY hydrochlorothiazide 25 mg tablet 25 mg PO DAILY Qty: 90 1RF tizanidine 4 mg capsule 4 mg PO BID PRN (Reason: muscle spasticity) Qty: 40 1RF Eliquis 5 mg tablet 5 mg PO BID Qty: 60 2RF Rx Instructions: begin after first week loading dose oxycodone 5 mg tablet 5 mg PO Q8H PRN (Reason: pain) Qty: 7 0RF Discharge Orders: Discharge ED (Routine); Ordered 05/25/25 Ordered By: Nora Lambert Referrals: Fredy Wooten MD [Primary Care Provider, Family Practice] Patient Instructions: Deep Vein Thrombosis (ED), Deep Vein Thrombosis Prevention (ED), Opioid Safety, Pain Management, Patient Portal & Francia Instructions Activity Restrictions/Additional Instructions: Please continue to monitor your condition closely at home. Take Ibuprofen 400mg and Tylenol 500-1000mg every six hours for pain and inflammation. You may take an oxycodone for severe pain only. Please restart your Eliquis twice a day as prescribed. If your condition worsens or additional concerns arise, please return promptly to the emergency department for reassessment. Follow up with your primary care doctor in one week. Talk to your primary doctor about discontinuing blood thinners and clearance for surgery. Print Language: Romansh Coding Level of Care Code ED Comic Illustrator for Jeanne Nagy
== END 2025-05-25 03:48 | disposition home or self-care (01) ==
PROVIDERS: Emergency Provider Emergency Medicine; PCP Family Medicine
DX: I82.501 Chronic embolism and thrombosis of unspecified deep veins of right lower extremity (principal); Z79.01 Long term (current) use of anticoagulants
CPT/HCPCS: 99283; J9999